=== PATIENT | male | born 1960 | race Caucasian/White ===

== ENCOUNTER 2018-01-21 09:03 | Emergency (ER) | payer BC ==
[2018-01-21] MEDS ORDERED: FENTANYL CITR 100 MCG/2 ML ONE (09:47)
[2018-01-21] MEDS ORDERED: NITROGLYCERIN 0.4 MG/TAB SL ONE (09:47)
[2018-01-21 10:07] LABS: Absolute Lymphocytes (CBC) 1.4 K/uL (0.7-4.9); Absolute Monocytes 0.6 K/uL (0.1-1.3); Absolute Neutrophil 5.7 K/uL (1.8-8.0); Eosinophils % 1.5 % (0-4.4); Hematocrit 42.4 % (39.6-49.0); Lymphocytes % 17.7 % (15.3-44.8); MCH 29.1 pg (27.0-35.0); MCV 83.9 fL (80-100); MPV 8.4 fL (7.6-11.3); Monocytes % 7.9 % (3.3-12.3); RBC Red Blood Cell Count 5.05 M/uL (4.33-5.43)
[2018-01-21 10:29] LABS: ALT/SGPT 41 U/L (12-78); AST/SGOT 24 U/L (15-37); Albumin 3.8 g/dL (3.4-5.0); Alkaline Phosphatase 120 U/L (45-117); BUN Blood Urea Nitrogen 16 mg/dL (7-18); Bicarbonate 27 mmol/L (21-32); Bilirubin Direct 0.1 mg/dL (0-0.2); Bilirubin Total 0.5 mg/dL (0.2-1.0); Glucose Level 95 mg/dL (74-106); Magnesium 2.4 mg/dL (1.8-2.4); NT PRO-BNP 25 pg/mL (<125); Potassium 4.3 mmol/L (3.5-5.1); Protein, Total 7.4 g/dL (6.4-8.2); Sodium Level 142 mmol/L (136-145); Troponin (Emerg Dept Use Only) < 0.02 ng/mL (0.0-0.045)
--- NOTE | 2018-01-21 10:39 | RAD REPORT ---
EXAM DESCRIPTION: RAD - Chest Single View - 01/21/2018 9:50 am CLINICAL HISTORY: CHEST PAIN Chest pain. COMPARISON: Chest Single View dated 02/12/2017; Chest Single View dated 06/23/2016 FINDINGS: Portable technique limits examination quality. The lungs are grossly clear. The heart is normal in size. No displaced fractures. IMPRESSION: No acute intrathoracic process suspected.
--- NOTE | 2018-01-21 10:45 | EKG ---
Test Date: 2018-01-21 Test Time: 09:24:38 Film Loader: TERRANCE MEASUREMENT RESULTS: Intervals: Rate: 62 MI: 142 QRSD: 80 QT: 398 QTc: 403 [place]: P: 52 MI: 142 QRS: 34 T: 24 INTERPRETIVE STATEMENTS: Normal sinus rhythm Normal ECG Compared to ECG 06/24/2016 08:01:39 No significant changes Electronically Signed On 01-21-18 10:45:15 SOCIAL MEDIA EXECUTIVE by Christopher Phillips
[2018-01-21 10:49] LABS: Protime INR 1.03
--- NOTE | 2018-01-21 12:35 | ER ---
Nurse's Notes [facility] Name: Anthony Bailey Age: 57 yrs Sex: Male : 1960 Arrival Date: 01/21/2018 Time: 09:05 Bed 2 Private MD: Mohan Weiner E Diagnosis: Chest pain, unspecified Presentation: 01/21 09:07 Presenting complaint: Patient states: mid-sternal chest pain that began this morning. aa5 Pt states "I saw the nurse and she gave me one nitro at 7:25am and it helped the chest pain but she said to come to the ER". 09:07 Transition of care: patient was not received from another setting of care. Onset of aa5 symptoms was January 21, 2018. Risk Assessment: Do you want to hurt yourself or someone else? Patient reports no desire to harm self or others. Initial Sepsis Screen: Does the patient meet any 2 criteria? No. Patient's initial sepsis screen is negative. Does the patient have a suspected source of infection? No. Patient's initial sepsis screen is negative. Care prior to arrival: Medication(s) given: Nitroglycerin, 0.4 mg SL. 09:07 Method Of Arrival: Wheelchair aa5 09:07 Acuity: DANIEL 2 aa5 Historical: - Allergies: 09:07 Sulfa (Sulfonamide Antibiotics); aa5 - PMHx: 09:07 Back pain; Hypertension; Myocardial infarction; aa5 09:10 NH 2017; aa5 - PSHx: 09:07 back surg -cyst removal; Knee surgery; sleep apnea surg; aa5 - Immunization history:: Flu vaccine is not up to date. - Social history:: Smoking status: Patient/guardian denies using tobacco. - Ebola Screening: : No symptoms or risks identified at this time. Screenin:10 Abuse screen: Denies threats or abuse. Nutritional screening: No deficits noted. aa5 Tuberculosis screening: No symptoms or risk factors identified. Fall Risk None identified. Assessment: 09:10 General: Appears comfortable, Behavior is calm, cooperative. Pain: Complains of pain in aa5 mid-sternal area Pain does not radiate. Pain currently is 5 out of 10 on a pain scale. Quality of pain is described as pressure, tight Pain began "this morning" Is continuous. Neuro: Level of Consciousness is awake, alert, obeys commands, Oriented to person, place, time, situation. Cardiovascular: Heart tones S1 S2 present Rhythm is regular. Respiratory: Airway is patent Respiratory effort is even, unlabored, Respiratory pattern is regular, symmetrical, Breath sounds are clear bilaterally. Denies shortness of breath. GI: Abdomen is round non-distended, Bowel sounds present X 4 quads. Patient currently denies nausea, vomiting. : No signs and/or symptoms were reported regarding the genitourinary system. EENT: No signs and/or symptoms were reported regarding the EENT system. Derm: Skin is pink, warm \\T\\ dry. Musculoskeletal: Range of motion: intact in all extremities. 09:45 Reassessment: Patient and/or family updated on plan of care and expected duration. Pain aa5 level reassessed. Patient is alert, oriented x 3, equal unlabored respirations, skin warm/dry/pink. Patient states feeling better. Patient states symptoms have improved. Pain: Pain currently is 4 out of 10 on a pain scale. 10:30 Reassessment: Patient and/or family updated on plan of care and expected duration. Pain aa5 level reassessed. Patient is alert, oriented x 3, equal unlabored respirations, skin warm/dry/pink. Pt sitting up in bed. . 10:30 Pain: Pain currently is 3 out of 10 on a pain scale. aa5 11:30 Reassessment: Patient is alert, oriented x 3, equal unlabored respirations, skin aa5 warm/dry/pink. Repeat troponin drawn by electron beam photo mask technician and sent to lab . 12:40 Reassessment: Patient is alert, oriented x 3, equal unlabored respirations, skin aa5 warm/dry/pink. Patient denies pain at this time. Patient states feeling better. Vital Signs: 09:10 BP 134 / 78; Pulse 77; Resp 14 S; Temp 98.0(O); Pulse Ox 100% on R/A; Weight 90.72 kg aa5 (R); Height 5 ft. 9 in. (175.26 cm) (R); Pain 10; 09:30 BP 136 / 76; Pulse 76; Resp 18 S; Pulse Ox 97% on R/A; aa5 09:42 BP 118 / 75; Pulse 72; Resp 16 S; Pulse Ox 98% on R/A; aa5 09:50 BP 119 / 72; Pulse 69; Resp 16 S; Pulse Ox 98% on R/A; aa5 10:00 BP 117 / 70; Pulse 77; Resp 16 S; Pulse Ox 97% on R/A; aa5 10:30 BP 128 / 61; Pulse 60; Resp 18 S; Pulse Ox 99% on R/A; aa5 11:20 BP 122 / 66; Pulse 61; Resp 18 S; Temp 97.8(TE); Pulse Ox 99% on R/A; aa5 12:00 BP 128 / 67; Pulse 65; Resp 18 S; Pulse Ox 99% on R/A; aa5 09:10 Body Mass Index 29.54 (90.72 kg, 175.26 cm) aa5 ED Course: 09:05 Patient arrived in ED. mr 09:06 Mohan Weiner MD is Private Physician. mr 09:07 Arm band placed on Patient placed in an exam room, on a stretcher. aa5 09:07 Patient has correct armband on for positive identification. Placed in gown. Bed in low aa5 position. Call light in reach. Side rails up X2. nuclear monitoring technician on. Pulse ox on. NIBP on. 09:10 Espinoza Fung PA is PHCP. jr8 09:10 Barney Ortega MD is Attending Physician. jr8 09:10 No provider procedures requiring assistance completed. Patient maintains SpO2 aa5 saturation greater than 95% on room air. 09:15 Aylin Prado, CAPO is Primary Nurse. aa5 09:19 Triage completed. aa5 09:30 Initial lab(s) drawn, by nh, sent to lab. Inserted saline lock: 20 gauge in right aa5 antecubital area, using aseptic technique. Blood collected. 09:33 EKG done, by technical services rep. reviewed by Espinoza SILVA. at1 09:48 X-ray completed. Portable x-ray completed in exam room. Patient tolerated procedure ls3 well. 12:34 Christopher Phillips MD is Referral Physician. jr8 12:40 IV discontinued, intact, bleeding controlled, No redness/swelling at site. Pressure aa5 dressing applied. Administered Medications: 09:42 Drug: Nitroglycerin 0.4 mg Route: Sublingual; aa5 10:00 Follow up: Response: No adverse reaction aa5 09:43 Drug: fentaNYL (PF) 50 mcg Route: IVP; Site: right antecubital; aa5 10:00 Follow up: Response: No adverse reaction aa5 Outcome: 12:34 Discharge ordered by . ricco 12:40 Discharged to home ambulatory, with significant other. aa5 12:40 Condition: good 12:40 Discharge instructions given to patient, Instructed on discharge instructions, follow up and referral plans. Demonstrated understanding of instructions, follow-up care. 12:44 Patient left the ED. aa5 Signatures: Aimee Watkins JohanAylin RN RN aa5 Espinoza Fung PA PA jr8 Felicia Haider, readers' advisory service librarian EKG Tat1 Marcy March ls3 Corrections: (The following items were deleted from the chart) 09:45 09:10 BP 134 / 78; Pulse 77bpm; Resp 14bpm; Spontaneous; Pulse Ox 100% RA; 90.72 kg aa5 Reported; Height 5 ft. 9 in. Reported; BMI: 29.5; Pain 5/10; aa5
--- NOTE | 2018-01-21 12:35 | EDPHYS ---
Physician Documentation [facility] Name: Anthony Bailey Age: 57 yrs Sex: Male : 1960 Arrival Date: 01/21/2018 Time: 09:05 Bed 2 Private MD: Mohan Weiner E ED Physician Barney Ortega HPI: 01/21 09:35 This 57 yrs old Male presents to ER via Wheelchair with complaints of Chest jr8 Pain. 09:35 The patient or guardian reports chest pain that is located primarily in the anterior jr8 chest wall, left. Onset: acutely, today, at 05:00. The pain does not radiate. Associated signs and symptoms: The patient has no apparent associated signs or symptoms. The chest pain is described as a heaviness, a pressure. Duration: The patient or guardian reports a single episode, that is still ongoing, but improving. Modifying factors: The symptoms are alleviated by NTG, X1. the symptoms are aggravated by nothing. Severity of pain: At its worst the pain was moderate in the emergency department the pain has improved mildly. The patient has experienced a previous episode. The patient has not recently seen a physician. History of NSTEMI in past. Did not require stent at that time per patient. Sudden onset chest pressure today that has been partially relieved by NTG that was given at work . Historical: - Allergies: 09:07 Sulfa (Sulfonamide Antibiotics); aa5 - PMHx: 09:07 Back pain; Hypertension; Myocardial infarction; aa5 09:10 [place] 2017; aa5 - PSHx: 09:07 back surg -cyst removal; Knee surgery; sleep apnea surg; aa5 - Immunization history:: Flu vaccine is not up to date. - Social history:: Smoking status: Patient/guardian denies using tobacco. - Ebola Screening: : No symptoms or risks identified at this time. ROS: 09:35 Eyes: Negative for injury, pain, redness, and discharge, ENT: Negative for injury, jr8 pain, and discharge, Neck: Negative for injury, pain, and swelling, Respiratory: Negative for shortness of breath, cough, wheezing, and pleuritic chest pain, Abdomen/GI: Negative for abdominal pain, nausea, vomiting, diarrhea, and constipation, Back: Negative for injury and pain, MS/Extremity: Negative for injury and deformity, Skin: Negative for injury, rash, and discoloration, Neuro: Negative for headache, weakness, numbness, tingling, and seizure. 09:35 Cardiovascular: Positive for chest pain, Negative for edema, orthopnea, palpitations, paroxysmal nocturnal dyspnea. Exam: 09:35 Eyes: Pupils equal round and reactive to light, extra-ocular motions intact. Lids and jr8 lashes normal. Conjunctiva and sclera are non-icteric and not injected. Cornea within normal limits. Periorbital areas with no swelling, redness, or edema. ENT: Nares patent. No nasal discharge, no septal abnormalities noted. Tympanic membranes are normal and external auditory canals are clear. Oropharynx with no redness, swelling, or masses, exudates, or evidence of obstruction, uvula midline. Mucous membranes moist. Neck: Trachea midline, no thyromegaly or masses palpated, and no cervical lymphadenopathy. Supple, full range of motion without nuchal rigidity, or vertebral point tenderness. No Meningismus. Cardiovascular: Regular rate and rhythm with a normal S1 and S2. No gallops, murmurs, or rubs. Normal PMI, no JVD. No pulse deficits. Respiratory: Lungs have equal breath sounds bilaterally, clear to auscultation and percussion. No rales, rhonchi or wheezes noted. No increased work of breathing, no retractions or nasal flaring. Abdomen/GI: Soft, non-tender, with normal bowel sounds. No distension or tympany. No guarding or rebound. No evidence of tenderness throughout. Back: No spinal tenderness. No costovertebral tenderness. Full range of motion. Skin: Warm, dry with normal turgor. Normal color with no rashes, no lesions, and no evidence of cellulitis. MS/ Extremity: Pulses equal, no cyanosis. Neurovascular intact. Full, normal range of motion. Neuro: Awake and alert, GCS 15, oriented to person, place, time, and situation. Cranial nerves II-XII grossly intact. Motor strength 5/5 in all extremities. Sensory grossly intact. Cerebellar exam normal. Normal gait. Vital Signs: 09:10 BP 134 / 78; Pulse 77; Resp 14 S; Temp 98.0(O); Pulse Ox 100% on R/A; Weight 90.72 kg aa5 (R); Height 5 ft. 9 in. (175.26 cm) (R); Pain 5/10; 09:30 BP 136 / 76; Pulse 76; Resp 18 S; Pulse Ox 97% on R/A; aa5 09:42 BP 118 / 75; Pulse 72; Resp 16 S; Pulse Ox 98% on R/A; aa5 09:50 BP 119 / 72; Pulse 69; Resp 16 S; Pulse Ox 98% on R/A; aa5 10:00 BP 117 / 70; Pulse 77; Resp 16 S; Pulse Ox 97% on R/A; aa5 10:30 BP 128 / 61; Pulse 60; Resp 18 S; Pulse Ox 99% on R/A; aa5 11:20 BP 122 / 66; Pulse 61; Resp 18 S; Temp 97.8(TE); Pulse Ox 99% on R/A; aa5 12:00 BP 128 / 67; Pulse 65; Resp 18 S; Pulse Ox 99% on R/A; aa5 09:10 Body Mass Index 29.54 (90.72 kg, 175.26 cm) aa5 MDM: 09:10 Patient medically screened. jr8 12:33 HEART Score: History: Moderately Suspicious (1), ECG: Normal (0), Age: > 45 and < 65 jr8 years (1), Risk Factors: 1 or 2 risk factors (1), [Hypertension] Troponin: < or = 1 x Normal Limit (0). The patient was not given aspirin in the Emergency Department. Patient reports taking aspirin within the past 24 hours. Data reviewed: vital signs, nurses notes, lab test result(s), EKG, radiologic studies, plain films, and as a result, I will discharge patient. Counseling: I had a detailed discussion with the patient and/or guardian regarding: the historical points, exam findings, and any diagnostic results supporting the discharge/admit diagnosis, lab results, radiology results, the need for outpatient follow up, a felt hat mellowing machine operator, to return to the emergency department if symptoms worsen or persist or if there are any questions or concerns that arise at home. ED course: Patient currently without pain. X 2 troponins negative. Will call Dr. Phillips who is his felt hat mellowing machine operator today for follow up. Does not want to be admitted at this time. 01/21 09:31 Order name: Basic Metabolic Panel [facility] [place] 01/21 09:31 Order name: CBC with Diff 8 01/21 09:31 Order name: LFT's [facility] [place] 01/21 09:31 Order name: Magnesium [facility] [place] 01/21 09:31 Order name: NT PRO-BNP [facility] [place] 01/21 09:31 Order name: PT-INR [facility] [place] 01/21 09:31 Order name: Troponin (emerg Dept Use Only) [facility] [place] 01/21 10:20 Order name: CBC with Automated Diff; Complete Time: 10:54 EDMS 01/21 10:29 Order name: Basic Metabolic Panel; Complete Time: 10:54 EDMS 01/21 10:29 Order name: Liver (Hepatic) Function; Complete Time: 10:54 EDMS 01/21 10:29 Order name: Troponin (Emerg Dept Use Only); Complete Time: 10:54 EDMS 01/21 10:29 Order name: NT PRO-BNP; Complete Time: 10:54 EDMS 01/21 10:29 Order name: Magnesium; Complete Time: 10:54 EDMS 01/21 10:58 Order name: Protime (+INR); Complete Time: 11:05 EDMS 01/21 09:31 Order name: XRAY Chest (1 view) [facility] [place] 01/21 09:31 Order name: EKG; Complete Time: 09:32 [facility] [place] 01/21 09:31 Order name: Cardiac monitoring; Complete Time: 09:37 [facility] [place] 01/21 09:31 Order name: EKG - Nurse/Tech; Complete Time: 09:37 [facility] [place] 01/21 09:31 Order name: IV Saline Lock; Complete Time: 09:37 [facility] [place] 01/21 09:31 Order name: Labs collected and sent; Complete Time: 09:37 [facility] [place] 01/21 09:31 Order name: O2 Per Protocol; Complete Time: 09:37 [facility] [place] 01/21 09:31 Order name: O2 Sat Monitoring; Complete Time: 09:37 [facility] [place] 01/21 10:40 Order name: RAD; Complete Time: 10:54 EDMS 01/21 11:05 Order name: Troponin (emerg Dept Use Only); Complete Time: 12:32 jr8 Administered Medications: 09:42 Drug: Nitroglycerin 0.4 mg Route: Sublingual; aa5 10:00 Follow up: Response: No adverse reaction aa5 09:43 Drug: fentaNYL (PF) 50 mcg Route: IVP; Site: right antecubital; aa5 10:00 Follow up: Response: No adverse reaction aa5 Disposition: 18:05 Co-signature as Attending Physician, Barney Ortega MD I agree with the assessment and mohit plan of care. Disposition: 01/21/18 12:34 Discharged to Home. Impression: Chest pain, unspecified. - Condition is Stable. - Discharge Instructions: Nonspecific Chest Pain, Aspirin and Your Heart. - Medication Reconciliation Form, Thank You Letter, Antibiotic Education, Prescription Opioid Use form. - Follow up: Christopher Phillips MD; When: 1 - 2 days; Reason: Recheck today's complaints, Continuance of care, Re-evaluation by your physician. - Problem is new. - Symptoms are resolved. Signatures: Dispatcher [employer] EDMS Barney Ortega MD MD cha Calderon, Audri RN RN aa5 Espinoza Fung PA PA jr8 Corrections: (The following items were deleted from the chart) 11:01 09:35 Onset: acutely, today, jr8 jr8 12:44 12:34 01/21/2018 12:34 Discharged to Home. Impression: Chest pain, unspecified. aa5 Condition is Stable. Forms are Medication Reconciliation Form, Thank You Letter, Antibiotic Education, Prescription Opioid Use. Follow up: Christopher Phillips; When: 1 - 2 days; Reason: Recheck today's complaints, Continuance of care, Re-evaluation by your physician. Problem is new. Symptoms are resolved. jr8
[2018-01-21 12:54] VITALS: TEMP 98
[2018-01-21 13:01] VITALS: BP 128/61; O2SAT 99
== END 2018-01-21 12:44 | disposition home or self-care (01) ==
LOC: ER 09:03
DX: R07.9 Chest pain, unspecified (principal); I10 Essential (primary) hypertension; I25.2 Old myocardial infarction; Z88.2 Allergy status to sulfonamides
CPT/HCPCS: 36415; 71045; 80048; 80076; 83735; 83880; 84484; 85025; 85610; 93005; 96374; 99285; J3010

== ENCOUNTER 2018-10-17 11:13 | Emergency (ER) | payer BC ==
--- OUTSIDE RECORDS SUMMARY | 2018-10-17 11:24 | XMS REPORT ---
:1960 [facility] Address [address] [place] [address] Care Team Providers Name Role Phone Unavailable Unavailable Unavailable Payers Payer Name Policy Type Policy Number Effective Date Expiration Date Problems This patient has no known problems. Allergies, Adverse Reactions, Alerts Allergy Allergy Status Severity Reaction(s) Onset Inactive Treating Comments Name Type Date Date Clinician Sulfa DA Active [place] 2018-08 (Sulfonami -24 de 00:00:0 Antibiotic 0 s) Sulfa DA Active [place] 2018-07 (Sulfonami -26 de 00:00:0 Antibiotic 0 s) Sulfa DA Active [place] 2016-04 (Sulfonami -15 de 00:00:0 Antibiotic 0 s) Medications This patient has no known medications. Results Test Description Test Time Test Comments Text Results Atomic Results Result Comments BASIC METABOLIC PANEL 2018-08-14 12:05:00 Test Item Value Reference Range Comments SODIUM (test code=NA) 138 mmol/L 136-145 POTASSIUM (test code=K) 4.6 mmol/L 3.5-5.1 CHLORIDE (test code=CL) 102.0 mmol/L 98-107 CARBON DIOXIDE (test code=CO2) 27.9 mmol/L 21-32 GLUCOSE (test code=GLU) 94 mg/dL 70-110 BLOOD UREA NITROGEN (test 17 mg/dL 7-18 code=BUN) GLOMERULAR FILTRATION RATE (test 71.0 >60 Unit of measure: mL/min/1.73 code=GFR) [id number] Range:Healthy Adults >90 mL/min/1.73 m2 For Chronic Kidney Disease: Stage II Mild Decrease in GFR 60-90 Stage III Moderate Decrease in GFR 30-59 Stage IV Severe Decrease in GFR 15-29 Stage V Kidney Failure <15 CREATININE (test code=CREAT) 1.07 mg/dL 0.55-1.30 CALCIUM (test code=CA) 9.1 mg/dL 8.2-10.1 HGB [id number] 11:40:00 Test Item Value Reference Range Comments HEMOGLOBIN (test code=HGB) 14.9 g/dL 12-16 HEMATOCRIT (test code=HCT) 42.7 % 37-47 - MRI UP JNT W/O CONT [id number] 16:27:00 Patient Name: BUDDY PÉREZ Unit No: [id number] EXAMS: CPT CODE: [id number] MRI UP JNT W/[place] [id number] MRI OF THE LEFT SHOULDER DIAGNOSIS: 1. Partial- thickness tearing of the supraspinatus tendon greatest along the undersurface anteriorly where it involves greater than 50% of the thickness of the tendon. There is no evidence for tendon retraction or muscular atrophy. 2. Low-grade partial thickness intrasubstance tearing of the infraspinatus tendon with tendinosis. No tendon retraction or muscular atrophy is seen. 3. SLAP tear of the labrum with biceps tendinosis but no evidence for subluxation. The proximal biceps tendon is thickened and there may be entrapment. The SLAP tear contiguously involves the posterior labrum with small posterior labral cyst. There is also subchondral cyst formation in the posterior glenoid without a focal cartilage defect. COMMENT: COMPARISON: No prior exams available. Scans were performed in the paracoronal, parasagittal and axial planes utilizing T1 , spin density with fat saturation and T2-weighting with and without fat saturation. The subscapularis tendon is within normal limitsin appearance. The remainder the rotator cuff is abnormal as described. The acromion is horizontal with AC joint degenerative change. The labrum is torn. There is a physiologic amount of joint fluid and a minimal amount of bursal fluid. Electronically Signed by Joey Ferrera MD on at 1627 Reported and signed by: Joey Ferrera MD CC: Robel Branham MD Technologist: Eleni Enciso(R) TranscribedD/ (1623) [facility] NAME: BUDDY PÉREZ [id number] [facility] [facility] PHYS: Chula Santos : 1960 AGE: 57 SEX: M [place] [id number] LOC: Y.MRI PHONE #: EXAM DATE: 07/11/2018 STATUS: REG CLI FAX #: RAD #: D/C DT PAGE 1 Signed Report Patient Name: BUDDY PÉREZ Unit No: [id number] EXAMS: CPT CODE: [id number] [place] JNT W/[place] [id number] < Continued> Orig Print D/T: S: 07/11/2018 ([id number]) [facility] NAME: BUDDY PÉREZ [address] [facility] [facility] PHYS: Robel Santos : 1960 AGE: 57 SEX: M [place] [id number] LOC: Y.MRI PHONE #: [phone] EXAM DATE: STATUS: REG CLI FAX #: [phone] RAD #: D/C DT PAGE 2 Signed Report
--- NOTE | 2018-10-17 11:49 | RAD REPORT ---
EXAM DESCRIPTION: RAD - Chest Single View - 10/17/2018 11:43 am CLINICAL HISTORY: Chest pain, chest pressure COMPARISON: January 2018 TECHNIQUE: AP portable chest image was obtained 1134 hours . FINDINGS: Lungs are clear. Heart and vasculature are normal. No measurable pleural effusion and no p neumothorax. No acute bony abnormality seen. No acute aortic findings suspected. IMPRESSION: No acute cardiopulmonary process.
[2018-10-17 11:54] LABS: Absolute Lymphocytes (CBC) 1.3 K/uL (0.7-4.9); Basophils % 0.8 % (0-1.3); Hematocrit 44.2 % (39.6-49.0); Lymphocytes % 14.1 % (15.3-44.8); RBC Red Blood Cell Count 5.19 M/uL (4.33-5.43)
[2018-10-17 12:06] LABS: Protime INR 0.97
[2018-10-17 12:16] LABS: ALT/SGPT 31 U/L (12-78); AST/SGOT 19 U/L (15-37); Alkaline Phosphatase 112 U/L (45-117); BUN Blood Urea Nitrogen 16 mg/dL (7-18); Bicarbonate 30 mmol/L (21-32); Bilirubin Direct 0.2 mg/dL (0-0.2); Bilirubin Total 0.6 mg/dL (0.2-1.0); Glucose Level 127 mg/dL (74-106); Magnesium 2.3 mg/dL (1.8-2.4); NT PRO-BNP 35 pg/mL (<125); Protein, Total 7.7 g/dL (6.4-8.2); Sodium Level 144 mmol/L (136-145); Troponin (Emerg Dept Use Only) < 0.02 ng/mL (0.0-0.045)
[2018-10-17] MEDS ORDERED: ASPIRIN 81 MG CHEWABLE TABLET ONE (13:29)
--- NOTE | 2018-10-17 14:56 | EKG ---
Test Date: 2018-10-17 Test Time: 11:42:14 Station Agent: TERRANCE MEASUREMENT RESULTS: Intervals: Rate: 67 DE: 140 QRSD: 82 QT: 382 QTc: 403 [place]: P: 42 DE: 140 QRS: 45 T: 27 INTERPRETIVE STATEMENTS: Normal sinus rhythm Normal ECG Compared to ECG 01/21/2018 09:24:38 No significant changes Electronically Signed On 10-17-18 14:56:01 CDT by Michel Blake
--- NOTE | 2018-10-17 18:52 | ER ---
Nurse's Notes [facility] Name: Anthony Bailey Age: 58 yrs Sex: Male : 1960 Arrival Date: 10/17/2018 Time: 11:14 Bed 14 Private MD: Diagnosis: Chest pain, unspecified Presentation: 10/17 11:21 Presenting complaint: Patient states: "I've been having uncomfortable feelings, chest aj1 pain for the past 7 to 8 hours. At some point in the middle of the night I went to move and I got this really bad pain in the back left side of my body and after that pain I felt like my blood pressure increased. I've had a heart attack before. I had some nitroglycerine pills, I took one, but it didn't calm me down, and I just have a really bad feeling. I feel like I'm going to throw up" Reports left sided chest pain. Transition of care: patient was not received from another setting of care. Onset of symptoms was October 17, 2018. Risk Assessment: Do you want to hurt yourself or someone else? Patient reports no desire to harm self or others. Initial Sepsis Screen: Does the patient meet any 2 criteria? No. Patient's initial sepsis screen is negative. Does the patient have a suspected source of infection? No. Patient's initial sepsis screen is negative. Care prior to arrival: None. 11:21 Method Of Arrival: Ambulatory aj1 11:21 Acuity: DANIEL 2 aj1 Triage Assessment: 11:24 General: Appears in no apparent distress. uncomfortable, Behavior is calm, cooperative, aj1 appropriate for age. Pain: Complains of pain in anterior aspect of left upper chest and left breast Pain currently is 7 out of 10 on a pain scale. Neuro: Level of Consciousness is awake, alert, obeys commands. Cardiovascular: Reports chest pain. Respiratory: Airway is patent Respiratory effort is even, unlabored, Respiratory pattern is regular, symmetrical. Historical: - Allergies: 11:24 Sulfa (Sulfonamide Antibiotics); aj1 - PMHx: 11:24 Back pain; Hypertension; [place] 2017; Myocardial infarction; aj1 - Immunization history:: Adult Immunizations up to date. - Ebola Screening: : Patient denies travel to an Ebola-affected area in the 21 days before illness onset. - Social history:: Smoking status: Patient/guardian denies using. Screenin:33 Abuse screen: Denies threats or abuse. Denies injuries from another. Nutritional ss screening: No deficits noted. Tuberculosis screening: Never had TB. Fall Risk No fall in past 12 months (0 pts). No secondary diagnosis (0 pts). IV access (20 points). Ambulatory Aid- None/Bed Rest/Nurse Assist (0 pts). Gait- Normal/Bed Rest/Wheelchair (0 pts) Mental Status- Oriented to own ability (0 pts). Assessment: 11:34 General: Appears comfortable, Behavior is calm, cooperative, Denies fever, feeling ill, ss fatigue, chills. Pain: Complains of pain in chest Pain does not radiate. Pain currently is 6 out of 10 on a pain scale. Quality of pain is described as pressure, Pain began 8 hours ago Is continuous. Neuro: Level of Consciousness is awake, alert, obeys commands, Oriented to person, place, time, situation, Speech is normal, Pupils are PERRLA. Cardiovascular: Pulses are palpable in right radial artery, right posterior tibial artery, left radial artery and left posterior tibial artery. Cardiovascular: Respiratory: Airway is patent Respiratory effort is even, unlabored, Respiratory pattern is regular, symmetrical. Respiratory: Denies cough, shortness of breath. GI: Abdomen is non-distended, Reports nausea, Patient currently denies abdominal pain, diarrhea, vomiting. : No signs and/or symptoms were reported regarding the genitourinary system. EENT: Nares with drainage noted Oral mucosa is moist. Derm: Skin is pink, warm \\T\\ dry. normal. Musculoskeletal: Circulation, motion, and sensation intact. Range of motion: intact in all extremities, Swelling absent. 11:38 General: I agree with the above assessment. Bed is in low, locked position. Call light rb1 within reach.. 12:35 Reassessment: Patient appears in no apparent distress at this time. No changes from rb1 previously documented assessment. 13:35 Reassessment: Patient appears in no apparent distress at this time. Patient and/or rb1 family updated on plan of care and expected duration. Pain level reassessed. Patient is alert, oriented x 3, equal unlabored respirations, skin warm/dry/pink. Pain 4/10. 14:20 Reassessment: Patient appears in no apparent distress at this time. No changes from rb1 previously documented assessment. 15:20 Reassessment: Patient appears in no apparent distress at this time. Patient and/or rb1 family updated on plan of care and expected duration. Pain level reassessed. Patient is alert, oriented x 3, equal unlabored respirations, skin warm/dry/pink. 15:30 Reassessment: Discharge pending due to the provider needing to speak with the pt. rb1 16:14 Reassessment: Patient appears in no apparent distress at this time. No changes from rb1 previously documented assessment. Vital Signs: 11:23 BP 138 / 83; Pulse 86; Resp 18; Temp 97.8; Pulse Ox 98% on R/A; Weight 92.08 kg (R); aj1 Height 5 ft. 10 in. (177.80 cm) (R); Pain 6/10; 12:20 BP 129 / 69; Pulse 67; Resp 19; Temp 97.9(O); Pulse Ox 97% on R/A; Pain 6/10; rb1 13:20 BP 116 / 98; Pulse 69; Resp 16; Temp 97.8(O); Pulse Ox 98% ; Pain 4/10; rb1 14:20 BP 130 / 76; Pulse 61; Resp 19; Temp 97.9(O); Pulse Ox 97% on R/A; Pain 4/10; rb1 15:20 BP 131 / 73; Pulse 60; Resp 12; Pulse Ox 97% on R/A; rb1 16:14 BP 131 / 81; Pulse 63; Resp 13; Temp 98.3(O); Pulse Ox 98% on R/A; Pain 3/10; rb1 11:23 Body Mass Index 29.13 (92.08 kg, 177.80 cm) aj1 ED Course: 11:14 Patient arrived in ED. as 11:23 Triage completed. aj1 11:24 Arm band placed on Patient placed in an exam room. aj1 11:25 Romain Mckenzie MD is Attending Physician. kdr 11:33 Patient has correct armband on for positive identification. Bed in low position. Call ss light in reach. Side rails up X 1. coal getter on. Pulse ox on. NIBP on. 11:33 Inserted saline lock: 20 gauge in right Blood collected. Patient maintains SpO2 ss saturation greater than 95% on room air. 11:55 XRAY Chest (1 view) In Process Unspecified. EDMS 12:48 Serina Barahona, RN is Primary Nurse. rb1 14:07 EKG done, by marine technician. reviewed by Romain Mckenzie MD. sm3 16:16 No provider procedures requiring assistance completed. IV discontinued, intact, rb1 bleeding controlled, No redness/swelling at site. Pressure dressing applied. Administered Medications: 13:35 Drug: Aspirin Chewable Tablet 324 mg Route: PO; rb1 14:00 Follow up: Response: No adverse reaction rb1 Outcome: 15:18 Discharge ordered by . kdr 16:16 Discharged to home ambulatory, with family. rb1 16:16 Condition: stable 16:16 Discharge instructions given to patient, Instructed on discharge instructions, follow up and referral plans. Demonstrated understanding of instructions, follow-up care, Prescriptions given X none 16:18 Patient left the ED. rb1 Signatures: Dispatcher [employer] EDMS Jennifer Eric RN RN aj1 Romain Mckenzie MD MD [facility] Cindy Lawson Shelby, RN RN Serina Barahona, RN RN rb1 Mony Villeda sm3 Corrections: (The following items were deleted from the chart) 13:43 13:42 Social history: Smoking status: rb1 rb1
--- NOTE | 2018-10-17 18:53 | EDPHYS ---
Physician Documentation [facility] Name: Anthony Bailey Age: 58 yrs Sex: Male : 1960 Arrival Date: 10/17/2018 Time: 11:14 Bed 14 Private MD: ED Physician Romain Mckenzie HPI: 10/17 15:19 This 58 yrs old Male presents to ER via Ambulatory with complaints of Chest kdr Pain. 15:19 The patient or guardian reports chest pain that is located primarily in the anterior kdr chest wall, left. Onset: suddenly, this morning, yesterday. The pain radiates to the left shoulder, The patient had recently rotator cuff surgery on the left and is unable to unnecessarily differentiate the post-op pain. Associated signs and symptoms: Pertinent positives: nausea, Pertinent negatives: diaphoresis, shortness of breath. The chest pain is described as aching, dull. Duration: The patient or guardian reports multiple episodes, that are intermittent, that wax and wane, with no pattern. Severity of pain: At its worst the pain was moderate in the emergency department the pain has improved markedly. Not entirely. Historical: - Allergies: 11:24 Sulfa (Sulfonamide Antibiotics); aj1 - PMHx: 11:24 Back pain; Hypertension; [place] 2017; Myocardial infarction; aj1 - Immunization history:: Adult Immunizations up to date. - Ebola Screening: : Patient denies travel to an Ebola-affected area in the 21 days before illness onset. - Social history:: Smoking status: Patient/guardian denies using. ROS: 15:19 Constitutional: Negative for fever, chills, and weight loss, Eyes: Negative for injury, kdr pain, redness, and discharge, Neck: Negative for injury, pain, and swelling, Respiratory: Negative for shortness of breath, cough, wheezing, and pleuritic chest pain, Abdomen/GI: Negative for abdominal pain, nausea, vomiting, diarrhea, and constipation, Back: Negative for injury and pain, MS/Extremity: Negative for injury and deformity, Skin: Negative for injury, rash, and discoloration, Neuro: Negative for headache, weakness, numbness, tingling, and seizure activity. Psych: Negative for depression, anxiety, suicide ideation, homicidal ideation, and hallucinations, Allergy/Immunology: Negative for hives, rash, and allergies, Endocrine: Negative for neck swelling, polydipsia, polyuria, polyphagia, and marked weight changes, Hematologic/Lymphatic: Negative for swollen nodes, abnormal bleeding, and unusual bruising. 15:19 Cardiovascular: Positive for chest pain, Negative for edema, orthopnea, palpitations, paroxysmal nocturnal dyspnea, acute changes. Exam: 15:19 Constitutional: This is a well developed, well nourished patient who is awake, alert, kdr and in no acute distress. Head/Face: Normocephalic, atraumatic. Eyes: Pupils equal round and reactive to light, extra-ocular motions intact. Lids and lashes normal. Conjunctiva and sclera are non-icteric and not injected. Cornea within normal limits. Periorbital areas with no swelling, redness, or edema. Neck: Trachea midline, no thyromegaly or masses palpated, and no cervical lymphadenopathy. Supple, full range of motion without nuchal rigidity, or vertebral point tenderness. No Meningismus. Chest/axilla: Normal chest wall appearance and motion. Nontender with no deformity. No lesions are appreciated. Cardiovascular: Regular rate and rhythm with a normal S1 and S2. No gallops, murmurs, or rubs. Normal PMI, no JVD. No pulse deficits. Respiratory: Lungs have equal breath sounds bilaterally, clear to auscultation and percussion. No rales, rhonchi or wheezes noted. No increased work of breathing, no retractions or nasal flaring. Abdomen/GI: Soft, non-tender, with normal bowel sounds. No distension or tympany. No guarding or rebound. No evidence of tenderness throughout. Back: No spinal tenderness. No costovertebral tenderness. Full range of motion. Skin: Warm, dry with normal turgor. Normal color with no rashes, no lesions, and no evidence of cellulitis. MS/ Extremity: Pulses equal, no cyanosis. Neurovascular intact. Full, normal range of motion. Neuro: Awake and alert, GCS 15, oriented to person, place, time, and situation. Cranial nerves II-XII grossly intact. Motor strength 5/5 in all extremities. Sensory grossly intact. Cerebellar exam normal. Normal gait. Psych: Awake, alert, with orientation to person, place and time. Behavior, mood, and affect are within normal limits. Vital Signs: 11:23 BP 138 / 83; Pulse 86; Resp 18; Temp 97.8; Pulse Ox 98% on R/A; Weight 92.08 kg (R); aj1 Height 5 ft. 10 in. (177.80 cm) (R); Pain 6/10; 12:20 BP 129 / 69; Pulse 67; Resp 19; Temp 97.9(O); Pulse Ox 97% on R/A; Pain 6/10; rb1 13:20 BP 116 / 98; Pulse 69; Resp 16; Temp 97.8(O); Pulse Ox 98% ; Pain 4/10; rb1 14:20 BP 130 / 76; Pulse 61; Resp 19; Temp 97.9(O); Pulse Ox 97% on R/A; Pain 4/10; rb1 15:20 BP 131 / 73; Pulse 60; Resp 12; Pulse Ox 97% on R/A; rb1 16:14 BP 131 / 81; Pulse 63; Resp 13; Temp 98.3(O); Pulse Ox 98% on R/A; Pain 3/10; rb1 11:23 Body Mass Index 29.13 (92.08 kg, 177.80 cm) aj1 MDM: 15:18 Patient medically screened. kdr 15:19 HEART Score: History: Moderately Suspicious (1), ECG: Normal (0), Age: > 45 and < 65 kdr years (1), Risk Factors: 1 or 2 risk factors (1), Troponin: < or = 1 x Normal Limit (0), Total Score = 3. Data reviewed: vital signs, nurses notes, lab test result(s), EKG, radiologic studies. Counseling: I had a detailed discussion with the patient and/or guardian regarding: the historical points, exam findings, and any diagnostic results supporting the discharge/admit diagnosis, lab results, radiology results, the need for outpatient follow up. 10/17 11:26 Order name: Basic Metabolic Panel kdr 10/17 11:26 Order name: CBC with Diff kdr 10/17 11:26 Order name: LFT's kdr 10/17 11:26 Order name: Magnesium kdr 10/17 11:26 Order name: NT PRO-BNP kdr 10/17 11:26 Order name: PT-INR kdr 10/17 11:26 Order name: Troponin (emerg Dept Use Only) kdr 10/17 11:26 Order name: XRAY Chest (1 view) [facility] 10/17 11:26 Order name: EKG; Complete Time: 11:27 [facility] 10/17 11:26 Order name: Cardiac monitoring; Complete Time: 11:36 [facility] 10/17 11:26 Order name: EKG - Nurse/Tech; Complete Time: 11:36 [facility] 10/17 11:26 Order name: IV Saline Lock; Complete Time: 11:36 [facility] 10/17 12:58 Order name: Troponin (emerg Dept Use Only): Draw two hours after the initial draw [facility] 10/17 11:26 Order name: Labs collected and sent; Complete Time: 11:36 [facility] 10/17 11:26 Order name: O2 Per Protocol; Complete Time: 11:36 [facility] 10/17 11:26 Order name: O2 Sat Monitoring; Complete Time: :36 [facility] 10/17 12:58 Order name: EKG - Nurse/Tech: Perfomr; Complete Time: 13:48 kdr Administered Medications: 13:35 Drug: Aspirin Chewable Tablet 324 mg Route: PO; rb1 14:00 Follow up: Response: No adverse reaction rb1 Disposition: 10/17/18 15:18 Discharged to Home. Impression: Chest pain, unspecified. - Condition is Stable. - Discharge Instructions: Nonspecific Chest Pain, [id number]. - Medication Reconciliation Form, Thank You Letter form. - Follow up: Private Physician; When: 2 - 3 days; Reason: If symptoms return, Further diagnostic work-up, Recheck today's complaints, Continuance of care, Re-evaluation by your physician. - Problem is new. - Symptoms have improved. Signatures: Dispatcher [employer] Jennifer Heredia RN RN aj1 Romain Mckenzie MD MD [facility] Carol Weiner RN RN ss Barber, Rebecca RN RN rb1 Corrections: (The following items were deleted from the chart) 13:43 13:42 Social history: Smoking status: rb1 rb1 16:18 15:18 10/17/2018 15:18 Discharged to Home. Impression: Chest pain, unspecified. rb1 Condition is Stable. Forms are Medication Reconciliation Form, Thank You Letter, Antibiotic Education, Prescription Opioid Use. Follow up: Private Physician; When: 2 - 3 days; Reason: If symptoms return, Further diagnostic work-up, Recheck today's complaints, Continuance of care, Re-evaluation by your physician. Problem is new. Symptoms have improved. kdr
[2018-10-17 20:15] VITALS: BP 131/81; TEMP 98.3; O2SAT 98
--- NOTE | 2018-10-20 08:15 | EKG ---
Test Date: 2018-10-17 Test Time: 13:58:37 Policy Change Clerk: TERRANCE MEASUREMENT RESULTS: Intervals: Rate: 62 [place]: 128 QRSD: 86 QT: 402 QTc: 408 [place]: P: 38 [place]: 128 QRS: 46 T: 27 INTERPRETIVE STATEMENTS: Normal sinus rhythm Normal ECG Compared to ECG 10/17/2018 11:42:14 No significant changes Electronically Signed On 10-20-18 08:08:21 CDT by Michel Blake
== END 2018-10-17 16:18 | disposition home or self-care (01) ==
LOC: ER 11:13
DX: R07.9 Chest pain, unspecified (principal); I25.2 Old myocardial infarction; Z88.2 Allergy status to sulfonamides
CPT/HCPCS: 36415; 71045; 80048; 80076; 83735; 83880; 84484; 85025; 85610; 93005; 99285

== ENCOUNTER 2018-12-20 10:23 | Emergency (ER) | payer BC ==
[2018-12-20 10:54] LABS: Absolute Lymphocytes (CBC) 1.5 K/uL (0.7-4.9); Basophils % 1.3 % (0-1.3); Hematocrit 42.9 % (39.6-49.0); Lymphocytes % 21.3 % (15.3-44.8); MPV 8.3 fL (7.6-11.3); RBC Red Blood Cell Count 5.01 M/uL (4.33-5.43)
[2018-12-20 10:56] LABS: Protime INR 0.98
--- NOTE | 2018-12-20 11:00 | EKG ---
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
[2018-12-20 11:06] LABS: ALT/SGPT 31 U/L (12-78); AST/SGOT 23 U/L (15-37); Albumin 3.9 g/dL (3.4-5.0); Alkaline Phosphatase 112 U/L (45-117); BUN Blood Urea Nitrogen 15 mg/dL (7-18); Bicarbonate 27 mmol/L (21-32); Bilirubin Direct 0.2 mg/dL (0-0.2); Bilirubin Total 0.5 mg/dL (0.2-1.0); Glucose Level 113 mg/dL (74-106); Magnesium 2.2 mg/dL (1.8-2.4); NT PRO-BNP 18 pg/mL (<125); Potassium 3.9 mmol/L (3.5-5.1); Protein, Total 7.2 g/dL (6.4-8.2); Sodium Level 141 mmol/L (136-145); Troponin (Emerg Dept Use Only) < 0.02 ng/mL (0.0-0.045)
--- NOTE | 2018-12-20 12:00 | RAD REPORT ---
EXAM DESCRIPTION: RAD - Chest Single View - 12/20/2018 11:47 am CLINICAL HISTORY: CHEST PAIN Chest pain. COMPARISON: Chest Single View dated 10/17/2018; Chest Single View dated 01/21/2018; Chest Single View dated 02/12/2017; Chest Single View dated 06/23/2016 FINDINGS: Portable technique limits examination quality. The lungs are grossly clear. The heart is normal in size. No displaced fractures. IMPRESSION: No acute intrathoracic process suspected.
--- NOTE | 2018-12-20 12:02 | ER ---
Nurse's Notes [facility] Name: Anthony Bailey Age: 58 yrs Sex: Male : 1960 Arrival Date: 12/20/2018 Time: 10:24 Bed 17 Private MD: Diagnosis: Chest pain, unspecified Presentation: 12/20 10:29 Presenting complaint: Sharp left sided chest pain that started while reaching arms hb overhead getting dressed this morning. Pain was unchanged by Nitro x 1. Transition of care: patient was not received from another setting of care. Onset of symptoms was December 20, 2018. Risk Assessment: Do you want to hurt yourself or someone else? Patient reports no desire to harm self or others. Initial Sepsis Screen: Does the patient meet any 2 criteria? No. Patient's initial sepsis screen is negative. Does the patient have a suspected source of infection? No. Patient's initial sepsis screen is negative. Care prior to arrival: Medication(s) given: Nitroglycerin, 0.4 mg SL x 1. 10:29 Method Of Arrival: Ambulatory hb 10:29 Acuity: DANIEL 3 hb Triage Assessment: 10:29 General: Appears in no apparent distress. comfortable, Behavior is cooperative, bp appropriate for age, anxious. Pain: Complains of pain in chest. EENT: No deficits noted. Neuro: No deficits noted. Cardiovascular: Rhythm is sinus rhythm Chest pain quality is sharp, is located in left began 1 hour prior to arrival. Respiratory: No deficits noted. GI: No signs and/or symptoms were reported involving the gastrointestinal system. : No signs and/or symptoms were reported regarding the genitourinary system. Derm: No deficits noted. Musculoskeletal: No deficits noted. Historical: - Allergies: 10:29 Sulfa (Sulfonamide Antibiotics); bp - PMHx: 10:29 Back pain; Hypertension; [place] 2017; Myocardial infarction; bp - Immunization history:: Adult Immunizations up to date. - Social history:: Smoking status: unknown. - Ebola Screening: : No symptoms or risks identified at this time. Screenin:30 Abuse screen: Denies threats or abuse. Denies injuries from another. Nutritional bp screening: No deficits noted. Tuberculosis screening: No symptoms or risk factors identified. Fall Risk None identified. Assessment: 10:31 General: SEE TRIAGE NOTE. bp 10:31 Pain: Pain does not radiate. Pain began 1 hour ago. bp 12:30 Reassessment: ADMIT IN PROCESS. bp 13:30 Reassessment: ADMIT COMPLETED, BED ASSIGNED. bp 14:30 Reassessment: PT DECLINING ADMIT, C/S PENDING. bp 15:31 Reassessment: PT D/C HOME AMBULATORY, DX WITH NONSPECIFIC CHEST PAIN. bp Vital Signs: 10:29 BP 174 / 82; Pulse 93; Resp 16; Temp 97.2; Pulse Ox 99% on R/A; Weight 77.11 kg; Height hb 5 ft. 8 in. (172.72 cm); Pain 6/10; 11:25 BP 140 / 84; Pulse 67; Resp 18; Temp 97.5(TE); Pulse Ox 98% on R/A; mh5 12:00 BP 151 / 81; Pulse 71; Resp 16; Pulse Ox 100% ; bp 13:00 BP 174 / 101; Pulse 77; Resp 16; Pulse Ox 99% ; bp 14:00 BP 149 / 85; Pulse 71; Resp 17; Pulse Ox 99% ; bp 15:00 BP 157 / 83; Pulse 75; Resp 17; Temp 97.5; Pulse Ox 99% ; bp 10:29 Body Mass Index 25.85 (77.11 kg, 172.72 cm) hb ED Course: 10:24 Patient arrived in ED. as 10:28 Sharath Santana, RN is Primary Nurse. bp 10:30 Arm band placed on. bp 10:30 Patient has correct armband on for positive identification. Bed in low position. Call bp light in reach. Side rails up X2. panel monitor on. Pulse ox on. NIBP on. 10:31 Triage completed. hb 10:31 Artie Rivers PA is PHCP. jm 10:31 Felice Allred MD is Attending Physician. [facility] 10:49 Initial lab(s) drawn, by sc, sent to lab. Inserted saline lock: 20 gauge in right 5 antecubital area, using aseptic technique. 10:52 D-Dimer Sent. 5 10:52 Basic Metabolic Panel Sent. 5 10:52 CBC with Diff Sent. 5 10:[address] [facility] 10:52 Magnesium Sent. 5 10:52 NT PRO-BNP Sent. 5 10:52 PT-INR Sent. 5 10:52 Troponin (emerg Dept Use Only) Sent. 5 11:48 XRAY Chest (1 view) In Process Unspecified. EDMS 12:01 Gwendolyn Peters MD is Hospitalizing Provider. [facility] 13:35 No provider procedures requiring assistance completed. Patient admitted, IV remains in bp place. Patient maintains SpO2 saturation greater than 95% on room air. 15:31 IV discontinued, intact, bleeding controlled, No redness/swelling at site. Pressure bp dressing applied. Administered Medications: No medications were administered Outcome: 12:01 Decision to Hospitalize by Provider. jmm 14:11 Admitted to Tele accompanied by tech, via wheelchair, room 422, with chart, Report bp called to OTTONIEL SCANLON 14:11 Condition: stable 14:11 Instructed on the need for admit. 14:46 Discharge ordered by MD. jmm 15:33 Discharged to home ambulatory. bp 15:33 Discharge ordered by MD. bp 15:33 Patient left the ED. bp Signatures: Dispatcher [employer] EDMS Artie Rivers PA PA jmm Martinez, Amelia as Baxter, Heather, RN RN Pepper Sims Sharath Robert, CAPO RN bp
--- NOTE | 2018-12-20 12:03 | EDPHYS ---
Physician Documentation [facility] Name: Anthony Bailey Age: 58 yrs Sex: Male : 1960 Arrival Date: 12/20/2018 Time: 10:24 Bed 17 Private MD: ED Physician Felice Allred HPI: 12/20 10:44 This 58 yrs old Male presents to ER via Ambulatory with complaints of Chest jmm Pain. 10:44 The patient or guardian reports chest pain that is located primarily in the substernal [facility] area. Onset: acutely, 2 hour(s) ago. The pain does not radiate. Associated signs and symptoms: Pertinent negatives: abdominal pain. The chest pain is described as sharp. This is a 58 yea rold male with a history of CAD, HTN that presents to the ED with complaints of left sided chest pain which began after stretching. patient states symptoms are worsened with deep inspiration. patient states taking nitro po without relief. . Historical: - Allergies: 10:29 Sulfa (Sulfonamide Antibiotics); bp - PMHx: 10:29 Back pain; Hypertension; [place] 2017; Myocardial infarction; bp - Immunization history:: Adult Immunizations up to date. - Social history:: Smoking status: unknown. - Ebola Screening: : No symptoms or risks identified at this time. ROS: 10:44 Constitutional: Negative for fever, chills, and weight loss. jmm 10:44 Cardiovascular: Positive for chest pain. 10:44 Respiratory: Positive for shortness of breath. 10:44 Abdomen/GI: Negative for abdominal pain. 10:44 All other systems are negative. Exam: 10:44 Head/Face: atraumatic. Eyes: EOMI, no conjunctival erythema appreciated ENT: Moist jmm Mucus Membranes Neck: Trachea midline, Supple Chest/axilla: Normal chest wall appearance and motion. 10:44 Constitutional: The patient appears alert, awake, anxious, uncomfortable. 10:44 Cardiovascular: Rate: normal, Rhythm: regular, Pulses: no pulse deficits are appreciated. 10:44 Respiratory: the patient does not display signs of respiratory distress, Respirations: normal, Breath sounds: are clear throughout. 10:44 Abdomen/GI: Inspection: abdomen appears normal, Bowel sounds: normal, Palpation: abdomen is soft and non-tender, in all quadrants. 10:44 Back: ROM is normal. 10:44 Musculoskeletal/extremity: ROM: intact in all extremities. 10:44 Skin: Appearance: normal except for affected area, Color: normal in color. 10:44 Neuro: Orientation: is normal, Mentation: is normal, Memory: is normal. 10:44 Psych: Behavior/mood is pleasant, cooperative. Vital Signs: 10:29 BP 174 / 82; Pulse 93; Resp 16; Temp 97.2; Pulse Ox 99% on R/A; Weight 77.11 kg; Height hb 5 ft. 8 in. (172.72 cm); Pain 6/10; 11:25 BP 140 / 84; Pulse 67; Resp 18; Temp 97.5(TE); Pulse Ox 98% on R/A; mh5 12:00 BP 151 / 81; Pulse 71; Resp 16; Pulse Ox 100% ; bp 13:00 BP 174 / 101; Pulse 77; Resp 16; Pulse Ox 99% ; bp 14:00 BP 149 / 85; Pulse 71; Resp 17; Pulse Ox 99% ; bp 15:00 BP 157 / 83; Pulse 75; Resp 17; Temp 97.5; Pulse Ox 99% ; bp 10:29 Body Mass Index 25.85 (77.11 kg, 172.72 cm) hb MDM: 10:35 Patient medically screened. [facility] 12:00 The patient was given aspirin in the Emergency Department. Data reviewed: vital signs, [facility] nurses notes, lab test result(s), EKG, radiologic studies, plain films. ED course: I discussed the patient with Dr. Peters whom accepted admission. . 16:42 Refusal of service: The patient/guardian displays adequate decision making capability [facility] and despite a detailed discussion of alternatives, benefits, risks, and consequences refuses: Admission to the hospital for further work-up and treatment. 12/20 10:33 Order name: Basic Metabolic Panel; Complete Time: 11:12 bp 12/20 10:33 Order name: CBC with Diff; Complete Time: 11: bp 12/20 10:33 Order name: LFT's; Complete Time: 11:12 bp 12/20 10:33 Order name: Magnesium; Complete Time: 11:12 bp 12/20 10:33 Order name: NT PRO-BNP; Complete Time: 11:12 bp 12/20 10:33 Order name: PT-INR; Complete Time: 11:12 bp 12/20 10:33 Order name: Troponin (emerg Dept Use Only); Complete Time: 11:12 bp 12/20 10:33 Order name: XRAY Chest (1 view); Complete Time: 12:04 bp 12/20 10:33 Order name: EKG; Complete Time: 10:34 bp 12/20 10:33 Order name: Cardiac monitoring; Complete Time: 10:33 bp 12/20 10:43 Order name: D-Dimer; Complete Time: 11:12 [facility] 12/20 10:33 Order name: EKG - Nurse/Tech; Complete Time: 10:33 bp 12/20 10:33 Order name: IV Saline Lock; Complete Time: 10:44 bp 12/20 10:33 Order name: Labs collected and sent; Complete Time: 10:44 bp 12/20 10:33 Order name: O2 Per Protocol; Complete Time: 10:33 bp 12/20 10:33 Order name: O2 Sat Monitoring; Complete Time: 10:33 bp Administered Medications: No medications were administered Disposition: 12/21 07:05 Co-signature as Attending Physician, Felice Allred MD. rn Disposition: 12/20/18 15:33 Discharged to Home. Impression: Chest pain, unspecified. - Condition is Stable. - Medication Reconciliation Form, Thank You Letter, Antibiotic Education, Prescription Opioid Use form. Signatures: Dispatcher [employer] Tess Reddy, RN RN Artie Arias PA PA jmm Nieto, Roman, MD MD rn Peltier, Brian, RN RN bp Corrections: (The following items were deleted from the chart) 12/20 13:33 12:01 Hospitalization Ordered by Gwendolyn Peters MD for Observation. Preliminary diagnosis dw is Chest pain, unspecified. Bed requested for Telemetry/MedSurg (observation). Status is Observation. Condition is Stable. Problem is new. Symptoms are unchanged. UTI on Admission? No. shawanda 14:46 13:33 12/20/2018 12:01 Hospitalization Ordered by Gwendolyn Peters MD for Observation. [facility] Preliminary diagnosis is Chest pain, unspecified. Bed requested for Telemetry/MedSurg (observation). Status is Observation. Condition is Stable. Problem is new. Symptoms are unchanged. UTI on Admission? No. dw 15:17 14:46 12/20/2018 14:46 Discharged to Home. Impression: Chest pain, unspecified. jmm Condition is Stable. Forms are Medication Reconciliation Form, Thank You Letter, Antibiotic Education, Prescription Opioid Use. Follow up: Private Physician; When: 2 - 3 days; Reason: Recheck today's complaints, Continuance of care, Re-evaluation by your physician. jmm
[2018-12-20] MEDS ORDERED: ACETAMINOPHEN 500 MG TAB PO PRN (14:19)
[2018-12-20] MEDS ORDERED: MORPHINE 4 MG/ML SYR IV PRN (14:19)
[2018-12-20] MEDS ORDERED: NITROGLYCERIN 0.4 MG/TAB SL PRN (14:19)
[2018-12-20 15:48] VITALS: TEMP 97.5
[2018-12-20 15:50] VITALS: O2SAT 99
[2018-12-20 15:53] VITALS: BP 157/83
--- NOTE | 2018-12-20 17:03 | P.HP ---
Certification for Inpatient Patient admitted to: Observation With expected LOS: <2 Midnights Patient will require the following post-hospital care: None Practitioner: I am a practitioner with admitting privileges, knowledge of patient current condition, hospital course, and medical plan of care. Services: Services provided to patient in accordance with Admission requirements found in Title 42 Section 412.3 of the Code of Federal Regulations Patient History Date of Service: 12/20/18 Reason for admission: Chest pain History of Present Illness: Patient is a 58-year-old male with past medical history of pre hypertension hyperlipidemia who had IL 2 years ago with cardiac catheterization in 2017 that showed 30% blockage LAD was normal did not receive any stents comes in with sudden onset of chest pain after patient was stretching in the morning. The patient did not have any associated nausea vomiting diaphoresis or palpitations. Denied any fevers chills cough or sputum production. Did report some pain with deep breaths. His symptoms are constant moderate progressively worsening. Patient therefore came into the ER for further evaluation. In the ER his initial cardiac enzymes were negative. EKG did not show any ST elevation. Patient did have mild elevation of his blood pressure. Patient was ordered aspirin and then referred for admission. When seen in the ER he was awake alert oriented x3, sitting his symptoms had improved significantly. Allergies Sulfa (Sulfonamide Antibiotics) [Sulfa(Sulfonamide Antibiotics)] Allergy ( Intermediate, Verified 05/09/11 08:17) Nausea/Vomiting Home medications list reviewed: Yes Home Medications: Gabapentin [Gralise] 600 mg PO TID 06/23/16 Aspirin [Aspirin EC 81 MG] 81 mg PO DAILY #90 tablet. 06/25/16 Atorvastatin Calcium [Lipitor] 80 mg PO BEDTIME #30 tab 06/25/16 Metoprolol Tartrate [Lopressor*] 25 mg PO BID 6AM 6PM #60 tab 06/25/16 Nitroglycerin [Nitrostat*] 0.4 mg SL UD PRN #30 tab 06/25/16 Prasugrel Hydrochloride [Effient*] 10 mg PO DAILY #30 tab 06/25/16 traMADol HCL [Ultram*] 50 mg PO TIDP PRN #30 tab 06/25/16 - Past Medical/Surgical History Diabetic: No -: Pre hypertension -: Back pain -: GERD -: Nephrolithiasis -: Obstructive sleep apnea -: Mild CAD -: Cyst removed from the L5 region -: Bilateral knee surgery -: UP3 -: Heart catheterization 2017 no stents Psychosocial/ Personal History: The patient has a girlfriend of many years. He has 2 children. 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 - Family History Sister -: Heart disease - Social History Smoking Status: Never smoker Alcohol use: Yes CD- Drugs: No Caffeine use: Yes Place of Residence: Home Review of Systems 10-point ROS is otherwise unremarkable Physical Examination - Vital Signs Temperature: 97.5 F Blood Pressure: 157/83 Pulse: 75 Respirations: 17 - Physical Exam General: Alert, In no apparent distress, Oriented x3 HEENT: Atraumatic, PERRLA, Mucous membr. moist/pink, EOMI, Sclerae nonicteric Neck: Supple, 2+ carotid pulse no bruit, No LAD, Without JVD or thyroid abnormality Respiratory: Clear to auscultation bilaterally, Normal air movement Cardiovascular: No edema, Normal pulses, Regular rate/rhythm, Normal S1 S2 Gastrointestinal: Normal bowel sounds, Soft and benign, Non-distended, No tenderness Musculoskeletal: No clubbing, No tenderness Integumentary: No rashes, No erythema Neurological: Normal gait, Normal speech, Normal strength at 5/5 x4 extr, Normal tone, Normal affect - Studies Laboratory Data (last 24 hrs) 12/20/18 10:35: PT 11.6, INR 0.98 12/20/18 10:35: WBC 7.0, Hgb 15.0, Hct 42.9, Plt Count 210 12/20/18 10:35: Sodium 141, Potassium 3.9, BUN 15, Creatinine 1.11, Glucose 113 H, Magnesium 2.2, Total Bilirubin 0.5, AST 23, ALT 31, Alkaline Phosphatase 112 Imagings Data: Chest x-ray shows no acute cardiopulmonary process Assessment and Plan - Problems (Diagnosis) (1) Chest pain Current Visit: No Status: Acute Qualifiers: Chest pain type: precordial pain Qualified Code(s): R07.2 - Precordial pain (2) HTN (hypertension) Current Visit: No Status: Acute Qualifiers: (3) Back pain Current Visit: No Status: Chronic Qualifiers: Back pain location: low back pain Back pain laterality: midline Sciatica presence: without sciatica (4) GERD (gastroesophageal reflux disease) Current Visit: No Status: Chronic Qualifiers: Esophagitis presence: without esophagitis Qualified Code(s): K21.9 - Gastro -esophageal reflux disease without esophagitis (5) Hyperlipidemia Current Visit: No Status: Chronic Qualifiers: Hyperlipidemia type: mixed hyperlipidemia Qualified Code(s): E78.2 - Mixed hyperlipidemia (6) Obstructive sleep apnea Current Visit: No Status: Chronic - Plan Start on chest pain guidelines. Echocardiogram Consult cardiology Serial cardiac enzymes and EKG IV fluids. Morphine and nitro p.r.n. pain D-dimer is negative doubt PE. No musculoskeletal point tenderness doubt chest wall pain. Patient has risk factors for heart disease including previous mild coronary artery disease hyperlipidemia and currently hypertensive. - Advance Directives Does patient have a Living Will: No Does patient have a Durable POA for Healthcare: No - Code Status/Comfort Care Code Status Assessed: Yes
[2018-12-20] MEDS ORDERED: ATORVASTATIN 80 MG TAB PO SCH (21:00)
[2018-12-20] MEDS ORDERED: METOPROLOL TAR 25 MG TAB PO SCH (21:00)
[2018-12-21] MEDS ORDERED: ENOXAPARIN 40 MG/0.4 ML SQ SCH (09:00)
[2018-12-21] MEDS ORDERED: LISINOPRIL 10 MG TAB PO SCH (09:00)
[2018-12-21] MEDS ORDERED: ASPIRIN EC 81 MG TAB PO SCH (09:00)
== END 2018-12-20 15:33 | disposition home or self-care (01) ==
LOC: ER 10:23 → UNDOADMOB 12:41 → ERHOLD 12:41 → 4TH 14:12 → ERHOLD 14:12
DX: R07.9 Chest pain, unspecified (principal); Z88.2 Allergy status to sulfonamides
CPT/HCPCS: 36415; 71045; 80048; 80076; 83735; 83880; 84484; 85025; 85379; 85610; 93005; 99285

== ENCOUNTER 2019-01-20 20:59 | Emergency (ER) | payer BC ==
--- OUTSIDE RECORDS SUMMARY | 2019-01-20 21:01 | XMS REPORT ---
:1960 [facility] Address [address] [place] [address] Care Team Providers Name Role Phone Unavailable [...] 71.0 >60 Unit of measure: mL/min/1.73 code=GFR) [id number] Range:Healthy Adults >90 mL/min/1.73 m2 For Chronic Kidney Disease: Stage II Mild Decrease in GFR 60-90 Stage III Moderate Decrease in GFR 30-59 Stage IV Severe Decrease in GFR 15-29 Stage V Kidney Failure <15 CREATININE (test code=CREAT) 1.07 mg/dL 0.55-1.30 CALCIUM (test code=CA) 9.1 mg/dL 8.2-10.1 HGB [id number] 11:40:00 Test Item Value Reference Range Comments HEMOGLOBIN (test code=HGB) 14.9 g/dL 12-16 HEMATOCRIT (test code=HCT) 42.7 % 37-47 - MRI UP JNT W/O CONT [id number] 16:27:00 Patient Name: BUDDY PÉREZ Unit No: [id number] EXAMS: CPT CODE: [id number] MRI UP JNT W/[place] [id number] MRI OF THE LEFT SHOULDER DIAGNOSIS: 1. [...] Robel Branham MD Technologist: Eleni Enciso(R) TranscribedD/ (1628) Debbi [facility] NAME: BUDDY PÉREZ [address] [facility] PHYS: JOANNALISARadha Chula Sams : 1960 AGE: 57 SEX: M [place] [phone] LOC: Y.MRI PHONE #: EXAM DATE: 07/11/2018 STATUS: REG CLI FAX #: RAD #: D/C DT PAGE 1 Signed Report Patient Name: BUDDY PÉREZ Unit No: [id number] EXAMS: CPT CODE: [id number] [place] JNT [place] [id number] < Continued> Orig Print D/T: S: 07/11/2018 (1632) [facility] NAME: BUDDY PÉREZ [address] [facility] PHYS: Robel Santos : 1960 AGE: 57 SEX: M [place] [phone] LOC: Y.MRI PHONE #: [phone] EXAM DATE: STATUS: REG CLI FAX #: [phone] RAD #: D/C DT PAGE 2 Signed Report
[2019-01-20 21:37] LABS: Protime INR 0.99
[2019-01-20 21:38] LABS: Absolute Lymphocytes (CBC) 1.6 K/uL (0.7-4.9); Basophils % 0.7 % (0-1.3); Hematocrit 42.8 % (39.6-49.0); Lymphocytes % 18.7 % (15.3-44.8); MPV 7.8 fL (7.6-11.3); RBC Red Blood Cell Count 5.01 M/uL (4.33-5.43)
--- NOTE | 2019-01-20 21:47 | RAD REPORT ---
EXAM DESCRIPTION: RAD - Chest Single View - 01/20/2019 9:28 pm CLINICAL HISTORY: CHEST PAIN Chest pain. COMPARISON: Chest Single View dated 12/20/2018; Chest Single View dated 10/17/2018; Chest Single View dated 01/21/2018; Chest Single View dated 02/12/2017 FINDINGS: Portable technique limits examination quality. The lungs are grossly clear. The heart is normal in size. No displaced fractures. IMPRESSION: No acute intrathoracic process suspected.
[2019-01-20 21:53] LABS: ALT/SGPT 38 U/L (12-78); AST/SGOT 26 U/L (15-37); Albumin 3.8 g/dL (3.4-5.0); Alkaline Phosphatase 99 U/L (45-117); BUN Blood Urea Nitrogen 17 mg/dL (7-18); Bicarbonate 26 mmol/L (21-32); Bilirubin Direct < 0.1 mg/dL (0-0.2); Bilirubin Total 0.4 mg/dL (0.2-1.0); Glucose Level 84 mg/dL (74-106); Magnesium 2.3 mg/dL (1.8-2.4); NT PRO-BNP 43 pg/mL (<125); Potassium 3.8 mmol/L (3.5-5.1); Sodium Level 144 mmol/L (136-145); Troponin (Emerg Dept Use Only) < 0.02 ng/mL (0.0-0.045)
--- NOTE | 2019-01-21 01:20 | ER ---
Nurse's Notes [facility] Name: Anthony Bailey Age: 58 yrs Sex: Male : 1960 Arrival Date: 01/20/2019 Time: 21:01 Bed 27 Private MD: Diagnosis: Chest pain, unspecified Presentation: 01/20 21:10 Presenting complaint: Patient states: At about 7:30 pm I felt my heart pounding and I ca1 think my blood pressure was high, so I took Nitroglycerin, sat down on my chair but couldn't feel comfortable. My chest feels so tight that I can't breathe. I had a heart attack on 2017" Reports nausea, and lightheadedness. Denies vomiting and dizziness. I. Transition of care: patient was not received from another setting of care. Onset of symptoms was January 20, 2019 at 19:30. Risk Assessment: Do you want to hurt yourself or someone else? Patient reports no desire to harm self or others. Initial Sepsis Screen: Does the patient meet any 2 criteria? No. Patient's initial sepsis screen is negative. Does the patient have a suspected source of infection? No. Patient's initial sepsis screen is negative. Care prior to arrival: Medication(s) given: Nitroglycerin, x 1. 21:10 Method Of Arrival: Wheelchair ca1 21:10 Acuity: DANIEL 3 ca1 Triage Assessment: 01/21 01:00 General: Appears in no apparent distress. Behavior is calm, cooperative. Pain: Denies tr5 pain. Cardiovascular: Reports chest pain, Heart tones present Capillary refill < 3 seconds. Historical: - Allergies: 01/20 21:20 Sulfa (Sulfonamide Antibiotics); ca1 - Home Meds: 21:20 metoprolol tartrate Oral [Active]; ca1 - PMHx: 21:20 Back pain; Hypertension; [place] 2017; Myocardial infarction; ca1 - PSHx: 21:20 Shoulder Surgery; Knee Surgery; ca1 - Immunization history:: Adult Immunizations up to date, Flu vaccine is not up to date. - Social history:: Smoking status: Patient/guardian denies using tobacco. - Ebola Screening: : Patient negative for fever greater than or equal to 101.5 degrees Fahrenheit, and additional compatible Ebola Virus Disease symptoms Patient denies exposure to infectious person Patient denies travel to an Ebola-affected area in the 21 days before illness onset No symptoms or risks identified at this time. Screenin:56 Abuse screen: Denies threats or abuse. Denies injuries from another. Nutritional mg2 screening: No deficits noted. Tuberculosis screening: No symptoms or risk factors identified. Fall Risk IV access (20 points). Assessment: 23:56 Reassessment: patient informed that he will have repeat topronin \\T\\ 0030H. patient mg2 agreed. 12 01:00 Pain: Pain does not radiate. Pain began suddenly. tr5 01:37 Reassessment: Patient appears in no apparent distress at this time. Patient is alert, rr5 oriented x 3, equal unlabored respirations, skin warm/dry/pink. discharge instruction given and explained without complaints made, verbalized understading. Vital Signs: 01/20 21:10 BP 149 / 76; Pulse 95; Resp 19 S; Pulse Ox 98% on R/A; Weight 94.8 kg (R); Height 5 ft. ca1 9 in. (175.26 cm) (R); Pain 7/10; 01/21 01:36 BP 130 / 72; Pulse 71; Resp 16; Temp 98.4; Pulse Ox 98% ; rr5 12 21:10 Body Mass Index 30.86 (94.80 kg, 175.26 cm) ca1 ED Course: 01/20 21:01 Patient arrived in ED. cl3 21:07 Agustin Sparrow, FERMIN is PHCP. pm1 21:07 Luca Mathis MD is Attending Physician. pm1 21:10 Arm band placed on right wrist. EKG completed in triage. Results shown to MD. ca1 21:18 Colby Mojica, RN is Primary Nurse. rr5 21:19 Triage completed. ca1 21:23 Raphael Wu, RN is Primary Nurse. tr5 21:25 Inserted saline lock: 20 gauge in right forearm, using aseptic technique. Blood mg2 collected. 21:28 XRAY Chest (1 view) In Process Unspecified. EDMS 23:57 Patient has correct armband on for positive identification. mg2 01/21 01:00 electronic device monitor on. Pulse ox on. NIBP on. tr5 01:19 Moahn Weiner MD is Referral Physician. pm1 01:19 Christopher Phillips MD is Referral Physician. pm1 01:36 No provider procedures requiring assistance completed. IV discontinued, intact, rr5 bleeding controlled, No redness/swelling at site. Pressure dressing applied. Patient maintains SpO2 saturation greater than 95% on room air. Administered Medications: No medications were administered Outcome: 01:19 Discharge ordered by MD. pm1 01:36 Discharged to home ambulatory. rr5 01:36 Condition: stable 01:36 Discharge instructions given to patient, Instructed on discharge instructions, follow up and referral plans. Demonstrated understanding of instructions, follow-up care. 01:38 Patient left the ED. rr5 Signatures: Dispatcher [employer] EDMS Agustin Sparrow, FERMIN [employer] pm1 Mukul Soni RN RN mg2 Colby Mojica RN RN rr5 Heide Lopez RN RN ca1 Raphael Wu RN RN tr5 Alex Martinez cl3 Corrections: (The following items were deleted from the chart) 01/20 21:21 21:20 BP 149 / 76; Pulse 95bpm; Resp 19bpm; Spontaneous; Pulse Ox 98% RA; 94.8 kg ca1 Reported; Height 5 ft. 9 in. Reported; BMI: 30.8; Pain 7/10; ca1
--- NOTE | 2019-01-21 01:21 | EDPHYS ---
Physician Documentation [facility] Name: Anthony Bailey Age: 58 yrs Sex: Male : 1960 Arrival Date: 01/20/2019 Time: 21:01 Bed 27 Private MD: ED Physician Luca Mathis HPI: 01/21 00:57 This 58 yrs old Male presents to ER via Wheelchair with complaints of Chest pm1 Pain. 00:57 The patient or guardian reports chest pain that is located primarily in the anterior pm1 aspect of left upper chest and left side of diaphragm . 00:57 Onset: today, at 19:30. The pain does not radiate. Associated signs and symptoms: pm1 Pertinent positives: headache from 1 nitro pill, Pertinent negatives: abdominal pain, cough, nausea, shortness of breath, vomiting. The chest pain is described as sharp. Duration: The patient or guardian reports a single episode. Modifying factors: the symptoms are aggravated by deep breath, palpation of area. Severity of pain: in the emergency department the pain is unchanged. Has been evaluated for his chest pain by Dr. Phillips over the past 3 weeks with nuclear stress test, U/S, labs with [address] Phillips told him that his heart is fine and he needs to follow up with Dr. Weiner to look for alternative causes for chest pain that is not his heart. Historical: - Allergies: 01/20 21:20 Sulfa (Sulfonamide Antibiotics); ca1 - Home Meds: 21:20 metoprolol tartrate Oral [Active]; ca1 - PMHx: 21:20 Back pain; Hypertension; [place] 2017; Myocardial infarction; ca1 - PSHx: 21:20 Shoulder Surgery; Knee Surgery; ca1 - Immunization history:: Adult Immunizations up to date, Flu vaccine is not up to date. - Social history:: Smoking status: Patient/guardian denies using tobacco. - Ebola Screening: : Patient negative for fever greater than or equal to 101.5 degrees Fahrenheit, and additional compatible Ebola Virus Disease symptoms Patient denies exposure to infectious person Patient denies travel to an Ebola-affected area in the 21 days before illness onset No symptoms or risks identified at this time. ROS: 01/21 00:57 Constitutional: Negative for fever, chills, and weight loss, Eyes: Negative for injury, pm1 pain, redness, and discharge, ENT: Negative for injury, pain, and discharge, Neck: Negative for injury, pain, and swelling. Respiratory: Negative for shortness of breath, cough, wheezing, and pleuritic chest pain, Abdomen/GI: Negative for abdominal pain, nausea, vomiting, diarrhea, and constipation, Back: Negative for injury and pain, MS/Extremity: Negative for injury and deformity, Skin: Negative for injury, rash, and discoloration. Cardiovascular: Positive for chest pain, Negative for edema, orthopnea, palpitations. Neuro: Positive for headache, Negative for numbness, tingling. Exam: 00:57 Constitutional: This is a well developed, well nourished patient who is awake, alert, pm1 and in no acute distress. Head/Face: Normocephalic, atraumatic. Eyes: Pupils equal round and reactive to light, extra-ocular motions intact. Lids and lashes normal. Conjunctiva and sclera are non-icteric and not injected. Cornea within normal limits. Periorbital areas with no swelling, redness, or edema. ENT: Nares patent. No nasal discharge, no septal abnormalities noted. Tympanic membranes are normal and external auditory canals are clear. Oropharynx with no redness, swelling, or masses, exudates, or evidence of obstruction, uvula midline. Mucous membranes moist. Neck: Trachea midline, no thyromegaly or masses palpated, and no cervical lymphadenopathy. Supple, full range of motion without nuchal rigidity, or vertebral point tenderness. No Meningismus. 00:57 Cardiovascular: Regular rate and rhythm with a normal S1 and S2. No gallops, murmurs, or rubs. Normal PMI, no JVD. No pulse deficits. Respiratory: Lungs have equal breath sounds bilaterally, clear to auscultation and percussion. No rales, rhonchi or wheezes noted. No increased work of breathing, no retractions or nasal flaring. Abdomen/GI: Soft, non-tender, with normal bowel sounds. No distension or tympany. No guarding or rebound. No evidence of tenderness throughout. Back: No spinal tenderness. No costovertebral tenderness. Full range of motion. Skin: Warm, dry with normal turgor. Normal color with no rashes, no lesions, and no evidence of cellulitis. MS/ Extremity: Pulses equal, no cyanosis. Neurovascular intact. Full, normal range of motion. 00:57 Chest/axilla: Palpation: crepitus, is not appreciated, tenderness, of the anterior aspect of left upper chest and left side of diaphragm, that totally reproduces the patient's complaints. 00:57 Neuro: Orientation: is normal, Motor: is normal, moves all fours, Gait: is steady, at a normal pace, without difficulty. Vital Signs: 01/20 21:10 BP 149 / 76; Pulse 95; Resp 19 S; Pulse Ox 98% on R/A; Weight 94.8 kg (R); Height 5 ft. ca1 9 in. (175.26 cm) (R); Pain 7/10; 01/21 01:36 BP 130 / 72; Pulse 71; Resp 16; Temp 98.4; Pulse Ox 98% ; rr5 01/20 21:10 Body Mass Index 30.86 (94.80 kg, 175.26 cm) ca1 MDM: 01/20 21:07 Patient medically screened. pm1 01/21 01:18 Data reviewed: vital signs. Data interpreted: Pulse oximetry: on room air is 98 %. pm1 Interpretation: normal. Counseling: I had a detailed discussion with the patient and/or guardian regarding: the historical points, exam findings, and any diagnostic results supporting the discharge/admit diagnosis, lab results, radiology results, the need for outpatient follow up, to return to the emergency department if symptoms worsen or persist or if there are any questions or concerns that arise at home. 01:18 ED course: Patient with two negative 4 hour troponins, atypical chest pain reproduced pm1 with deep breathing and palpation. According to the patient cleared by Dr. Phillips of heart problems and instructed to follow up with PCP. Therefore will discharge the patient home to follow up with Dr. Weiner. 01/20 21:17 Order name: Basic Metabolic Panel; Complete Time: 21:56 pm1 01/20 21:17 Order name: CBC with Diff; Complete Time: 21:56 pm1 01/20 21:17 Order name: LFT's; Complete Time: 21:56 pm1 01/20 21:17 Order name: Magnesium; Complete Time: 21:56 pm1 01/20 21:17 Order name: NT PRO-BNP; Complete Time: 21:56 pm1 12/02 21:17 Order name: PT-INR; Complete Time: 21:56 pm1 01/20 21:17 Order name: Troponin (emerg Dept Use Only); Complete Time: 21:56 pm1 01/20 21:17 Order name: XRAY Chest (1 view); Complete Time: 21:56 pm1 01/20 21:17 Order name: EKG; Complete Time: 21:18 pm1 01/20 21:17 Order name: Cardiac monitoring; Complete Time: 22:38 pm1 01/20 21:17 Order name: EKG - Nurse/Tech; Complete Time: 21:23 pm1 01/20 21:17 Order name: IV Saline Lock; Complete Time: 21:24 pm1 01/20 21:17 Order name: Labs collected and sent; Complete Time: 21:24 pm1 01/20 23:49 Order name: Troponin (emerg Dept Use Only): due \T\0030; Complete Time: 00:57 mg2 01/20 21:17 Order name: O2 Per Protocol; Complete Time: 22:38 pm1 01/20 21:17 Order name: O2 Sat Monitoring; Complete Time: 22:38 pm1 Administered Medications: No medications were administered Disposition: 07:35 Co-signature as Attending Physician, Luca Mathis MD I agree with the assessment and tw4 plan of care. Disposition: 01/21/19 01:19 Discharged to Home. Impression: Chest pain, unspecified. - Condition is Stable. - Discharge Instructions: Nonspecific Chest Pain. - Medication Reconciliation Form, Thank You Letter, Antibiotic Education, Prescription Opioid Use form. - Follow up: Emergency Department; When: As needed; Reason: Worsening of condition. Follow up: Mohan Weiner MD; When: 2 - 3 days; Reason: Recheck today's complaints, Continuance of care, Re-evaluation by your physician. Follow up: Christopher Phillips MD; When: 2 - 3 days; Reason: Recheck today's complaints, Continuance of care, Re-evaluation by your physician. - Problem is new. - Symptoms have improved. Signatures: Dispatcher [employer] EDMS Agustin Sparrow, BRUSH MACHINE SETTER BRUSH MACHINE SETTER pm1 Luca Mathis MD MD tw4 Colby Mojica RN RN rr5 Heide Lopez RN RN ca1 Corrections: (The following items were deleted from the chart) 01:38 01:19 01/21/2019 01:19 Discharged to Home. Impression: Chest pain, unspecified. rr5 Condition is Stable. Forms are Medication Reconciliation Form, Thank You Letter, Antibiotic Education, Prescription Opioid Use. Follow up: Emergency Department; When: As needed; Reason: Worsening of condition. Follow up: Mohan Weiner; When: 2 - 3 days; Reason: Recheck today's complaints, Continuance of care, Re-evaluation by your physician. Follow up: Christopher Phillips; When: 2 - 3 days; Reason: Recheck today's complaints, Continuance of care, Re-evaluation by your physician. Problem is new. Symptoms have improved. pm1
[2019-01-21 06:21] VITALS: O2SAT 98
[2019-01-21 06:23] VITALS: BP 130/72; TEMP 98.4
--- NOTE | 2019-01-21 08:01 | EKG ---
Test Date: 2019-01-20 Test Time: 21:07:41 Accounting Bookkeeper: LOYDA MEASUREMENT RESULTS: Intervals: Rate: 90 KS: 140 QRSD: 76 QT: 352 QTc: 430 [place]: P: 43 KS: 140 QRS: 42 T: 0 INTERPRETIVE STATEMENTS: Normal sinus rhythm Normal ECG Compared to ECG 12/20/2018 10:29:34 T-wave abnormality no longer present Electronically Signed On 01-21-19 08:00:57 TECHNICAL ASSOCIATE by Christopher Phillips
== END 2019-01-21 01:38 | disposition home or self-care (01) ==
LOC: ER 20:59
DX: R07.9 Chest pain, unspecified (principal); Z88.2 Allergy status to sulfonamides; I10 Essential (primary) hypertension; I25.2 Old myocardial infarction
CPT/HCPCS: 36415; 71045; 80048; 80076; 83735; 83880; 84484; 85025; 85610; 93005; 99285

== ENCOUNTER 2019-04-05 21:02 | Emergency (ER) | payer BC ==
--- OUTSIDE RECORDS SUMMARY | 2019-04-05 21:03 | XMS REPORT ---
:1960 [facility] Address [address] [place] [address] Care Team Providers Name Role Phone Unavailable [...] 71.0 >60 Unit of measure: mL/min/1.73 code=GFR) [id number] Range:Healthy Adults >90 mL/min/1.73 m2 For Chronic Kidney Disease: Stage II Mild Decrease in GFR 60-90 Stage III Moderate Decrease in GFR 30-59 Stage IV Severe Decrease in GFR 15-29 Stage V Kidney Failure <15 CREATININE (test code=CREAT) 1.07 mg/dL 0.55-1.30 CALCIUM (test code=CA) 9.1 mg/dL 8.2-10.1 HGB [id number] 11:40:00 Test Item Value Reference Range Comments HEMOGLOBIN (test code=HGB) 14.9 g/dL 12-16 HEMATOCRIT (test code=HCT) 42.7 % 37-47 - MRI UP JNT W/O CONT [id number] 16:27:00 Patient Name: BUDDY PÉREZ Unit No: [id number] EXAMS: CPT CODE: [id number] [place] JNT [place] [address] MRI OF THE LEFT SHOULDER DIAGNOSIS: 1. [...] Robel Branham MD Technologist: Eleni Enciso(R) TranscribedD/ (1626) [facility] NAME: BUDDY PÉREZ [address] [facility] PHYS: JOANNALISARadha Chula Sams : 1960 AGE: 57 SEX: M [place] [id number] LOC: Y.MRI PHONE #: [phone] EXAM DATE: 07/11/2018 STATUS: REG CLI FAX #: RAD #: D/C DT PAGE 1 Signed Report Patient Name: BUDDY PÉREZ Unit No: [id number] EXAMS: CPT CODE: [id number] [place] J[place] [address] < Continued> Orig Print D/T: S: 07/11/2018 (1638) [facility] NAME: BUDDY PÉREZ [address] [facility] PHYS: Robel Santos : 1960 AGE: 57 SEX: M [place] [id number] LOC: Y.MRI PHONE #: [phone] EXAM DATE: STATUS: REG CLI FAX #: [phone] RAD #: D/C DT PAGE 2 Signed Report
[2019-04-05 21:50] LABS: Basophils % 0.9 % (0-1.3); Hematocrit 45.8 % (39.6-49.0); Lymphocytes % 16.2 % (15.3-44.8); Protime INR 0.96; RBC Red Blood Cell Count 5.33 M/uL (4.33-5.43)
[2019-04-05] MEDS ORDERED: NA CHLORIDE 0.9% 1,000 ML ONE (21:52)
[2019-04-05] MEDS ORDERED: LORazepam 2 MG/ML VIAL ONE (21:52)
[2019-04-05 22:04] LABS: ALT/SGPT 113 U/L (12-78); AST/SGOT 44 U/L (15-37); Alkaline Phosphatase 101 U/L (45-117); BUN Blood Urea Nitrogen 18 mg/dL (7-18); Bicarbonate 29 mmol/L (21-32); Bilirubin Direct 0.1 mg/dL (0-0.2); Bilirubin Total 0.5 mg/dL (0.2-1.0); Glucose Level 113 mg/dL (74-106); Magnesium 2.4 mg/dL (1.8-2.4); NT PRO-BNP 75 pg/mL (<125); Potassium 3.8 mmol/L (3.5-5.1); Protein, Total 7.5 g/dL (6.4-8.2); Sodium Level 144 mmol/L (136-145); Troponin I < 0.02 ng/mL (0.0-0.045)
--- NOTE | 2019-04-06 00:15 | ER ---
Nurse's Notes [facility] Name: Anthony Bailey Age: 58 yrs Sex: Male : 1960 Arrival Date: 04/05/2019 Time: 21:04 Bed 5 Private MD: Mohan Weiner E Diagnosis: Chest pain, unspecified Presentation: 04/05 21:04 Presenting complaint: Patient states: I have been having chest pain on an off since my jb4 last heart attack for about a year. Tonight has been the worst. I feel SOB and nauseous. 21:04 Transition of care: patient was not received from another setting of care. Onset of jb4 symptoms was April 05, 2019. Risk Assessment: Do you want to hurt yourself or someone else? Patient reports no desire to harm self or others. Initial Sepsis Screen: Does the patient meet any 2 criteria? No. Patient's initial sepsis screen is negative. Does the patient have a suspected source of infection? No. Patient's initial sepsis screen is negative. Care prior to arrival: None. 21:04 Method Of Arrival: Wheelchair jb4 21:04 Acuity: DANIEL 3 jb4 Historical: - Allergies: 21:04 Sulfa (Sulfonamide Antibiotics); jb4 - Home Meds: 21:04 Metoprolol Tartrate Oral [Active]; Aspirin Oral [Active]; jb4 - PMHx: 21:04 Back pain; Hypertension; [place] 2017; Myocardial infarction; jb4 - PSHx: 21:04 heart cath; Tonsillectomy; soft pallet removal; uvila removal; left sholder; jb4 - Immunization history:: Adult Immunizations up to date. - Coronavirus screen:: The patient has NOT traveled to [place] in the past 14 days. Proceed with normal triage process as indicated. The patient has NOT had contact with known/suspected case of Coronavirus? Proceed with normal triage procedures. - Social history:: Smoking status: Patient denies any tobacco usage or history of. Patient uses alcohol, weekly. Patient/guardian denies using street drugs. - Ebola Screening: : No symptoms or risks identified at this time. Screenin/16 00:40 Abuse screen: Denies threats or abuse. Denies injuries from another. Nutritional lp1 screening: No deficits noted. Tuberculosis screening: No symptoms or risk factors identified. Fall Risk None identified. Assessment: 04/05 21:04 General: Appears in no apparent distress. uncomfortable, Behavior is cooperative, jb4 anxious. Pain: Complains of pain in chest Pain does not radiate. Pain currently is 5 out of 10 on a pain scale. Quality of pain is described as sharp, stabbing, Pain began 1 year ago Is intermittent. Neuro: Level of Consciousness is awake, alert, obeys commands, Oriented to person, place, time, situation. Cardiovascular: Patient's skin is warm and dry. Respiratory: Airway is patent Respiratory effort is even, unlabored, Respiratory pattern is regular, symmetrical. GI: Reports nausea. : No signs and/or symptoms were reported regarding the genitourinary system. EENT: No signs and/or symptoms were reported regarding the EENT system. Derm: Skin is intact, Skin is pink, warm \T\ dry. Musculoskeletal: Circulation, motion, and sensation intact. Range of motion: intact in all extremities. 22:17 Reassessment: Patient appears in no apparent distress at this time. Patient and/or jb4 family updated on plan of care and expected duration. Pain level reassessed. Patient is alert, oriented x 3, equal unlabored respirations, skin warm/dry/pink. 04/06 00:15 Reassessment: Provider at bedside to discuss results with patient and family. lp1 00:40 Reassessment: Patient appears in no apparent distress at this time. Patient is alert, lp1 oriented x 3, equal unlabored respirations, skin warm/dry/pink. Patient states feeling better. Vital Signs: 04/05 21:10 BP 177 / 101 LA (auto/lg); Pulse 85; Resp 16; Temp 98.1(O); Pulse Ox 97% on R/A; Weight jp3 92.53 kg (R); Height 5 ft. 9 in. (175.26 cm) (R); Pain 5/10; 21:37 BP 150 / 75 LA (auto/lg); Pulse 73; Pulse Ox 97% on R/A; jp3 21:45 BP 136 / 67; Pulse 71; Resp 16; Pulse Ox 95% on R/A; jb4 22:56 BP 121 / 68 LA (auto/lg); Pulse 69; Resp 16 S; Pulse Ox 96% on R/A; jp3 23:30 BP 125 / 70; Pulse 70; Resp 18; Pulse Ox 96% on R/A; lp1 04/06 00:40 BP 117 / 70; Pulse 73; Resp 18; Pulse Ox 97% on R/A; lp1 04/05 21:10 Body Mass Index 30.13 (92.53 kg, 175.26 cm) 3 ED Course: 04/05 21:04 Patient arrived in ED. es 21:04 Mohan Weiner MD is Private Physician. es 21:04 Arm band placed on right wrist. jb4 21:05 Madhu Bonilla, RN is Primary Nurse. jb4 21:06 [facility] snw 21:06 Romain Mckenzie MD is Attending Physician. snw 21:10 Patient maintains SpO2 saturation greater than 95% on room air. jp3 21:10 Safety checks: Family/friend present: yes. Family/friends encouraged to stay with 3 patient. Patient has correct armband on for positive identification. Placed in gown. Bed in low position. Call light in reach. Side rails up X 1. Side rails up X2. Warm blanket given. Pillow given. Verbal reassurance given. monitoring tech on. Pulse ox on. NIBP on. 21:15 EKG done, by ED staff, reviewed by Reina IQBAL. jp3 21:27 Initial lab(s) drawn, by wi, sent to lab. Inserted saline lock: 20 gauge in right 3 antecubital area, using aseptic technique. Blood collected. 21:41 Triage completed. jb4 22:29 CT completed. Patient tolerated procedure well. Patient moved back from CT. 04/06 00:14 Christopher Phillips MD is Referral Physician. snw 00:40 No provider procedures requiring assistance completed. IV discontinued, No lp1 redness/swelling at site. Pressure dressing applied. Administered Medications: 04/05 21:52 Drug: Ativan 1 mg Route: IVP; Site: right antecubital; jb4 21:53 Drug: NS 0.9% 1000 ml Route: IV; Rate: 125 ml/hr; Site: right antecubital; jb4 04/06 00:40 Follow up: IV Status: IV converted to saline lock lp1 04/05 21:53 Not Given (Physician Discretion): Metoprolol 5 mg IVP every 5 minutes; Hold for SBP < jb4 100 or HR < 60. x3 04/06 00:47 Drug: Simethicone 240 mg Route: PO; lp1 00:48 Follow up: Response: Medication administered at discharge. lp1 Outcome: 00:14 Discharge ordered by . snw 00:40 Discharged to home ambulatory, with significant other. lp1 00:40 Condition: good 00:40 Discharge instructions given to patient, Instructed on discharge instructions, follow up and referral plans. Demonstrated understanding of instructions, follow-up care. 00:45 Patient left the ED. lp1 Signatures: Reina Aviles, MINER PLACER-C MINER PLACER-Csnw Dulce Barragan Betty bq Pena, Laura, RN RN lp1 Madhu Bonilla, CAPO RN jb4 Kishan Luke jp3 Corrections: (The following items were deleted from the chart) 01:03 01:02 Patient left the ED. lp1 lp1
--- NOTE | 2019-04-06 00:16 | EDPHYS ---
Physician Documentation [facility] Name: Anthony Bailey Age: 58 yrs Sex: Male : 1960 Arrival Date: 04/05/2019 Time: 21:04 Bed 5 Private MD: Mohan Weiner E ED Physician Romain Mckenzie HPI: 04/05 21:50 This 58 yrs old Male presents to ER via Wheelchair with complaints of Chest snw Pain. 21:50 Onset: The symptoms/episode began/occurred acutely, waxing and waning, pt states pain snw started today and has been persistent since 1200. Associated signs and symptoms: Pertinent positives: palpitations. The patient has experienced similar episodes in the past. The patient has not recently seen a physician. last cardiac cath per Dr. Phillips, no blockages per pt report. Historical: - Allergies: 21:04 Sulfa (Sulfonamide Antibiotics); jb4 - Home Meds: 21:04 Metoprolol Tartrate Oral [Active]; Aspirin Oral [Active]; jb4 - PMHx: 21:04 Back pain; Hypertension; [place] 2017; Myocardial infarction; jb4 - PSHx: 21:04 heart cath; Tonsillectomy; soft pallet removal; uvila removal; left sholder; jb4 - Immunization history:: Adult Immunizations up to date. - Coronavirus screen:: The patient has NOT traveled to [place] in the past 14 days. Proceed with normal triage process as indicated. The patient has NOT had contact with known/suspected case of Coronavirus? Proceed with normal triage procedures. - Social history:: Smoking status: Patient denies any tobacco usage or history of. Patient uses alcohol, weekly. Patient/guardian denies using street drugs. - Ebola Screening: : No symptoms or risks identified at this time. ROS: 21:46 Constitutional: Negative for fever, chills, and weight loss, Eyes: Negative for injury, snw pain, redness, and discharge, ENT: Negative for injury, pain, and discharge, Neck: Negative for injury, pain, and swelling, Cardiovascular: Positive for chest pain, palpitations, and nausea, no edema, Respiratory: Negative for shortness of breath, cough, wheezing, and pleuritic chest pain, Abdomen/GI: Negative for abdominal pain, nausea, vomiting, diarrhea, and constipation, Back: Negative for injury and pain, : Negative for injury, bleeding, discharge, and swelling, MS/Extremity: Negative for injury and deformity, Skin: Negative for injury, rash, and discoloration, Neuro: Negative for headache, weakness, numbness, tingling, and seizure, Psych: Negative for depression, anxiety, suicide ideation, homicidal ideation, and hallucinations. Exam: 21:15 ECG was reviewed by the Attending Physician. snw 21:45 Constitutional: This is a well developed, well nourished patient who is awake, alert, snw and in no acute distress. Head/Face: Normocephalic, atraumatic. Eyes: Pupils equal round and reactive to light, extra-ocular motions intact. Lids and lashes normal. Conjunctiva and sclera are non-icteric and not injected. Cornea within normal limits. Periorbital areas with no swelling, redness, or edema. ENT: Nares patent. No nasal discharge, no septal abnormalities noted. Tympanic membranes are normal and external auditory canals are clear. Oropharynx with no redness, swelling, or masses, exudates, or evidence of obstruction, uvula midline. Mucous membranes moist. Neck: Trachea midline, no thyromegaly or masses palpated, and no cervical lymphadenopathy. Supple, full range of motion without nuchal rigidity, or vertebral point tenderness. No Meningismus. Chest/axilla: Normal chest wall appearance and motion. Nontender with no deformity. No lesions are appreciated. Cardiovascular: Regular rate and rhythm with a normal S1 and S2. No gallops, murmurs, or rubs. Normal PMI, no JVD. No pulse deficits. Respiratory: Lungs have equal breath sounds bilaterally, clear to auscultation and percussion. No rales, rhonchi or wheezes noted. No increased work of breathing, no retractions or nasal flaring. Abdomen/GI: Soft, non-tender, with normal bowel sounds. No distension or tympany. No guarding or rebound. No evidence of tenderness throughout. Back: No spinal tenderness. No costovertebral tenderness. Full range of motion. Skin: Warm, dry with normal turgor. Normal color with no rashes, no lesions, and no evidence of cellulitis. MS/ Extremity: Pulses equal, no cyanosis. Neurovascular intact. Full, normal range of motion. Neuro: Awake and alert, GCS 15, oriented to person, place, time, and situation. Cranial nerves II-XII grossly intact. Motor strength 5/5 in all extremities. Sensory grossly intact. Cerebellar exam normal. Normal gait. Psych: Awake, alert, with orientation to person, place and time. Behavior, mood, and affect are within normal limits. Vital Signs: 21:10 BP 177 / 101 LA (auto/lg); Pulse 85; Resp 16; Temp 98.1(O); Pulse Ox 97% on R/A; Weight jp3 92.53 kg (R); Height 5 ft. 9 in. (175.26 cm) (R); Pain 5/10; 21:37 BP 150 / 75 LA (auto/lg); Pulse 73; Pulse Ox 97% on R/A; jp3 21:45 BP 136 / 67; Pulse 71; Resp 16; Pulse Ox 95% on R/A; jb4 22:56 BP 121 / 68 LA (auto/lg); Pulse 69; Resp 16 S; Pulse Ox 96% on R/A; jp3 23:30 BP 125 / 70; Pulse 70; Resp 18; Pulse Ox 96% on R/A; lp1 04/06 00:40 BP 117 / 70; Pulse 73; Resp 18; Pulse Ox 97% on R/A; lp1 04/05 21:10 Body Mass Index 30.13 (92.53 kg, 175.26 cm) jp3 MDM: 04/05 21:07 Patient medically screened. snw 21:48 Data reviewed: vital signs, nurses notes. Data interpreted: Pulse oximetry: on room air snw is 97 %. Interpretation: normal. Counseling: I had a detailed discussion with the patient and/or guardian regarding: the historical points, exam findings, and any diagnostic results supporting the discharge/admit diagnosis, the presence of at least one elevated blood pressure reading (>120/80) during this emergency department visit, lab results. 04/05 21:06 Order name: Basic Metabolic Panel snw 04/05 21:06 Order name: CBC with Diff snw 04/05 21:06 Order name: LFT's snw 04/05 21:06 Order name: Magnesium snw 04/05 21:06 Order name: NT PRO-BNP snw 04/05 21:06 Order name: PT-INR snw 04/05 21:06 Order name: Troponin (emerg Dept Use Only) snw 04/05 21:58 Order name: CBC with Automated Diff; Complete Time: 22:00 EDMS 04/05 21:58 Order name: Protime (+INR); Complete Time: 22:00 EDMS 04/05 22:05 Order name: Basic Metabolic Panel; Complete Time: 22:13 EDMS 04/05 22:05 Order name: Liver (Hepatic) Function; Complete Time: 22:13 EDMS 04/05 22:05 Order name: Troponin I; Complete Time: 22:13 EDMS 04/05 22:05 Order name: NT PRO-BNP; Complete Time: 22:13 EDMS 04/05 22:05 Order name: Magnesium; Complete Time: 22:13 EDMS 04/05 21:06 Order name: XRAY Chest (1 view) w 04/05 21:06 Order name: EKG; Complete Time: 21:43 snw 04/05 21:06 Order name: Cardiac monitoring; Complete Time: 21:18 snw 04/05 21:06 Order name: EKG - Nurse/Tech; Complete Time: 21:18 snw 04/05 21:06 Order name: IV Saline Lock; Complete Time: 21:33 snw 04/05 21:06 Order name: Labs collected and sent; Complete Time: 21:33 snw 04/05 21:06 Order name: O2 Per Protocol; Complete Time: 21:18 snw 04/05 21:06 Order name: O2 Sat Monitoring; Complete Time: 21:18 snw 04/05 21:13 Order name: CT Dissection w/wo Con snw EC:15 Rate is 76 beats/min. Rhythm is regular. QRS [place] is Normal. DC interval is normal. QRS snw interval is normal. QT interval is normal. T waves are Inverted in leads III, aVR. Clinical impression: NSR w/ Non-specific ST/T Changes. Administered Medications: 21:52 Drug: Ativan 1 mg Route: IVP; Site: right antecubital; jb4 21:53 Drug: NS 0.9% 1000 ml Route: IV; Rate: 125 ml/hr; Site: right antecubital; jb4 04/06 00:40 Follow up: IV Status: IV converted to saline lock lp1 04/05 21:53 Not Given (Physician Discretion): Metoprolol 5 mg IVP every 5 minutes; Hold for SBP < jb4 100 or HR < 60. x3 04/06 00:47 Drug: Simethicone 240 mg Route: PO; lp1 00:48 Follow up: Response: Medication administered at discharge. lp1 Disposition: 01:07 Co-signature as Attending Physician, Romain Mckenzie MD I agree with the assessment and kdr plan of care. Disposition: 04/06/19 00:14 Discharged to Home. Impression: Chest pain, unspecified. - Condition is Stable. - Discharge Instructions: Nonspecific Chest Pain, Gastroesophageal Reflux Disease, Adult, Hypertension, Intestinal Gas and Gas Pains, Pediatric, Aspirin and Your Heart. - Work release form, Medication Reconciliation Form, Thank You Letter, Antibiotic Education, Prescription Opioid Use form. - Follow up: Private Physician; When: 2 - 3 days; Reason: Recheck today's complaints, Continuance of care, Re-evaluation by your physician. Follow up: Emergency Department; When: As needed; Reason: Worsening of condition. Follow up: Christopher Phillips MD; When: 1 week; Reason: Recheck today's complaints, Continuance of care. Signatures: Dispatcher [employer] EDMN Roamin Mckenzie MD MD [facility] Reina Aviles, YOUTH MANAGER-C YOUTH MANAGER-Csnw Diya Fernández, CAPO RN lp1 Madhu Bonilla RN RN jb4 Corrections: (The following items were deleted from the chart) 01:02 00:14 04/06/2019 00:14 Discharged to Home. Impression: Chest pain, unspecified. lp1 Condition is Stable. Forms are Medication Reconciliation Form, Thank You Letter, Antibiotic Education, Prescription Opioid Use. Follow up: Private Physician; When: 2 - 3 days; Reason: Recheck today's complaints, Continuance of care, Re-evaluation by your physician. Follow up: Emergency Department; When: As needed; Reason: Worsening of condition. Follow up: Christopher Phillips; When: 1 week; Reason: Recheck today's complaints, Continuance of care. snw
[2019-04-06] MEDS ORDERED: SIMETHICONE 80 MG TAB ONE (00:39)
[2019-04-06 03:07] VITALS: TEMP 98.1
[2019-04-06 03:27] VITALS: BP 121/68; O2SAT 96
--- NOTE | 2019-04-06 06:20 | EKG ---
Test Date: 2019-04-05 Test Time: 21:13:22 Mask Inspector: PINKY MEASUREMENT RESULTS: Intervals: Rate: 76 ME: 136 QRSD: 84 QT: 358 QTc: 402 [place]: P: 43 ME: 136 QRS: 53 T: 20 INTERPRETIVE STATEMENTS: Normal sinus rhythm Normal ECG Compared to ECG 01/20/2019 21:07:41 No significant changes Electronically Signed On 04-06-19 06:19:56 MILK DRIVER by Christopher Phillips
--- NOTE | 2019-04-06 08:40 | RAD REPORT ---
EXAM DESCRIPTION: RAD - Chest Single View - 04/05/2019 10:09 pm CLINICAL HISTORY: CHEST PAIN COMPARISON: Chest Single View dated 01/20/2019; Chest Single View dated 12/20/2018 TECHNIQUE: AP portable chest image was obtained 04/05/2019 10:09 pm . FINDINGS: Lungs are clear. Heart and vasculature are normal. No measurable pleural effusion and no p neumothorax. No acute bony abnormality seen. No acute aortic findings suspected. IMPRESSION: No acute cardiopulmonary process.
--- NOTE | 2019-04-07 11:28 | RAD REPORT ---
EXAM DESCRIPTION: CT - Angio Aorta For Dissection - 04/06/2019 2:35 am CLINICAL HISTORY: The patient is 58 years old and is Male; chest pain TECHNIQUE: Axial computed tomographic angiography images of the chest, abdomen and pelvis with intra venous contrast. Sagittal and coronal reformatted images were created and reviewed. This CT exam was performed using one or more of the following dose reduction techniques: automated exposure cont rol, adjustment of the mA and/or kV according to patient size, and/or use of iterative reconstruction technique. MIP reconstructed images were created and reviewed. COMPARISON: No relevant prior studies available. FINDINGS: VASCULATURE: AORTA: No acute findings. No aortic aneurysm. No dissection. PULMONARY ARTERIES: Unremarkable as visualized. No pulmonary embolism is identified. GREAT VESSELS OF AORTIC ARCH: No acute findings. No dissection. No arterial occlusion or sig nificant stenosis. CELIAC TRUNK AND MESENTERIC ARTERIES: No acute findings. No occlusion or significant stenosis. RENAL ARTERIES: No acute findings. No occlusion or significant stenosis. ILIAC ARTERIES: No acute findings. No occlusion or significant stenosis. CHEST: LUNGS: Unremarkable. No mass. No consolidation. PLEURAL SPACE: Unremarkable. No significant effusion. No pneumothorax. HEART: Unremarkable. No cardiomegaly. No significant pericardial effusion. ABDOMEN: LIVER: Unremarkable. No mass. GALLBLADDER AND BILE DUCTS: Unremarkable. No calcified stones. No ductal dilation. PANCREAS: Unremarkable. No ductal dilation. No mass. SPLEEN: Unremarkable. No splenomegaly. ADRENALS: Unremarkable. No mass. KIDNEYS AND URETERS: Unremarkable. No hydronephrosis. No solid mass. STOMACH AND BOWEL: The stomach is well distended with food contents. The small bowel is relative ly normal in caliber. A moderate amount stool is present throughout colon. There is no mucosal thicke kayleigh or evidence of bowel obstruction. PELVIS: APPENDIX: The appendix is normal in caliber without surrounding inflammation. BLADDER: Unremarkable. No mass. REPRODUCTIVE: Unremarkable as visualized. CHEST, ABDOMEN and PELVIS: INTRAPERITONEAL SPACE: Unremarkable. No significant fluid collection. No free air. BONES/JOINTS: Multilevel degenerative change of the spine is present. No acute fracture. No dislocation. SOFT TISSUES: There are small bilateral fat containing inguinal hernias. LYMPH NODES: Unremarkable. No enlarged lymph nodes. IMPRESSION: 1. No evidence of aortic aneurysm or dissection. 2. No acute findings on this contrasted CT of the chest, abdomen, and pelvis to explain the patient 's symptoms. Electronically signed by: Nupur Zelaya MD 04/05/2019 11:15 PM WATER SERVICE DISPATCHER Due to temporary technical issues with the PACS/Fluency reporting system, reports are being signed by the in house radiologist as a courtesy to ensure prompt reporting. The interpreting radiologist is f ully responsible for the content of the report.
== END 2019-04-06 01:02 | disposition home or self-care (01) ==
LOC: ER 21:02
DX: R07.9 Chest pain, unspecified (principal); R00.2 Palpitations; I10 Essential (primary) hypertension; Z88.2 Allergy status to sulfonamides; Z79.82 Long term (current) use of aspirin
CPT/HCPCS: 96361; 93005; 85025; 80048; 36415; 83735; 85610; 80076; 84484; 83880; 71275; 74175; 71045; 96374; 99285; Q9967; J7030

== ENCOUNTER 2021-06-16 16:37 | Observation (INO) | payer BC ==
--- OUTSIDE RECORDS SUMMARY | 2021-06-16 16:40 | XMS REPORT | Continuity of Care Document ---
:1960 Author Organization [facility] t Address [address] [place] [address] Care Team Providers Name Role Phone Des Putnam Attending Clinician Unavailable ROSE Attending Clinician Unavailable SHAWN Attending Clinician Unavailable SANTA Attending Clinician Unavailable Sung Branham Attending Clinician Unavailable Payers Payer Name Policy Type Policy Number Effective Date Expiration Date S ource Problems This patient has no known problems. Allergies, Adverse Reactions, Alerts Allergy Allergy Status Severity Reaction(s) Onset Inactive Treating Comm ents Source Name Type Date Date Clinician Sulfa DA Active [place] [facility] ([facility]ulf[facility] 7[facility]24 [place] [facility] [place] Active [place] NAUSEA 2018-0 [facility] (Sulfona 7-24 [place] [facility] 00:[facility]: [facility] Antibiot 00 dic ics[facility] Sulfa DA Active [place] 0 [facility] ([facility]ulfona 6-26 [place] [facility] 00:[facility]: [facility]ope Antibiot 00 dic ics) [facility] Sulfa DA Active [place] 0 [facility] (Sulfona 3-15 [place] [facility] 00:[facility]: [facility]ope Antibiot 00 dic ics) Hospita l Medications Ordered Filled Start Stop Current Ordering Indication Dosage Frequency Signature Comments Components Source Medication Medication Date Date Medication? Clinician (SIG) Name Name Metoprolol Metoprolol Yes Adolfo [address] [facility] Succinate 3-04 [place] [facility] Tylenol # 3 Tylenol # 3 Yes Adolfo one tab [facility] Procedures This patient has no known procedures. Encounters Start End Encounter Admission Attending Care Care Encounter Source Date/Time Date/Time Type Type Clinicians Facility Department ID 2021-03-16 [place] [id number] [facility] 12:48:39 Adolfo [id number] [facility] 2021-03-16 Out[place], [place] [id number] [facility] [address] 12:40:35 [facility]olfo [id number] [facility] 2021-03-16 Out[place], [place] [id number] [facility] [address] 12:39:42 Adolfo [id number] [facility] 2021-03-16 Out[place], [place] [id number] [facility] 12:36:30 Adolfo [id number] [facility] 2021-03-16 Out[place], [place] [id number] [facility] [address] 12:02:57 Adolfo [id number] [facility] 2021-03-16 Out[place], [place] [id number] 11:59:41 Adolfo [id number] [facility] 2021-03-16 Out[place], [place] [id number] [facility] [address] 11:11:34 Adolfo [id number] [facility] 2021-05-04 2021-05-04 Outpatient ROSE, [facility] [id number] [place] 00:00:00 00:00:00 RUDDY [facility] 2021-05-03 2021-05-03 Outpatient [facility] [id number] [facility] 00:00:00 23:59:00 Tony Medicin e 2021-05-03 2021-05-03 Outpatient ROSE, [facility] [id number] [place] 00:00:00 00:00:00 RUDDY [facility] 2021-05-03 2021-05-03 Outpatient CARRUM, [facility] [id number] [place] 00:00:00 00:00:00 DERRELL [address] 2021-04-29 2021-04-29 Outpatient BCM [facility] [id number] [facility] 00:00:00 23:59:00 Colleg e of Medicin e 2021-04-29 2021-04-29 Outpatient ROSE, [facility] [id number] 119 [place] 00:00:00 00:00:00 RUDDY [address] 2021-04-01 2021-04-01 Outpatient BCM BCM [id number] [facility] 00:00:00 23:59:00 [facility] Medicin e 2021-04-01 2021-04-01 Outpatient ROSE, [facility] [id number] [place] 00:00:00 00:00:00 RUDDY [address] 2021-04-01 2021-04-01 Outpatient ROSE, [facility] [id number] [place] 00:00:00 00:00:00 RUDDY [address] 2020-07-01 2020-07-01 Outpatient [facility] [id number] [facility] 00:00:00 [facility]:00:00 [facility] 2020-06-03 2020-06-03 Outpatient SANTA, [facility] [id number] [place] 00:00:00 00:00:00 PANCHOISA [address] 2020-05-24 2020-05-24 Outpatient [facility] [id number] [facility] 2020-04-30 2020-04-30 Outpatient [facility] [id number] [facility] 2020-04-23 2020-04-23 Outpatient [facility] [id number] [facility] 2020-04-02 2020-04-02 Outpatient [facility] [id number] [facility] 2020-04-02 2020-04-02 Out[facility] [id number] [facility] 2020-01-05 2020-01-05 Outpatient [facility] [id number] [facility] 2020-01-01 2020-01-01 Outpatient [facility] [id number] [facility] 2020-01-01 2020-01-01 Outpatient [facility] [id number] [facility] 2019-12-29 2019-12-29 Outpatient [facility] [id number] [facility] 2019-12-17 2019-12-17 Out[facility] [id number] [facility] 2019-12-10 2019-12-10 Out[facility] [id number] 2019-10-21 2019-10-21 Outpatient KANDICE Branham [id number] [facility] 10:00:00 10:00:00 Robel [id number] [facility] 2019-09-25 2019-09-25 [facility] [id number] 10:30:00 10:30:00 t ViFlux - miiCard [facility] 2019-06-25 2019-06-25 [facility] [id number] 11:15:00 11:15:00 t ViFlux - miiCard [facility] Outpat[facility] Clinics 2019-04-23 2019-04-23 [facility] [id number] 13:15:00 13:15:00 t HYLT [employer] s - [employer]iiCard [facility] Results Test Description Test Time Test Comments Results Result Sourc e Comments - MRI UP JNT W/O 2019-10-21 Patient Name: CONT LT 10:43:00 ANTHONY PÉREZ Unit No: [id number] EXAMS: CPT CODE: [id number] MRI [place] JNT W/[place] [id number] MR of the left shoulder without contrast TECHNIQUE: Paracoronal, parasagittal and axial multisequence images obtained. COMPARISON: MR dated 07/11/2018 FINDINGS: Acromioclavicular joint: Moderate degenerative changes. Rotator cuff: Interval postoperative changes of anterior supraspinatus tendon repair demonstrated. No recurrent full-thickness tear is identified. The supraspinatus tendon is thickened and heterogeneous, consistent with tendinosis. Borderline teres minor muscle atrophy is present. Musculature is otherwise normal in size and signal intensity. Long head biceps tendon: Postoperative changes of biceps tenodesis without evidence of complication. Labrum: Circumferential labral tearing is again visualized with paralabral cyst formation posterior/inferiorly measuring 5 mm. Cartilage/ bone: Moderate glenoid cartilage degeneration has progressed with prominent subchondral edema inferiorly increased, measuring 8 mm transversely. No acute fracture. No suspicious osseous lesion. Other: No joint effusion present. IMPRESSION: 1. Interval postoperative changes of supraspinatus tendon repair. No recurrent full-thickness tear visualized. 2. Biceps tenodesis. 3. Progression in moderate glenoid cartilage degeneration, greatest inferiorly. at 1043 Reported and signed by: Anthony Montero M.D. CC: Robel Branham MD Technologist: BUCK CASTRO RT(R) Transcribed D/ (1043) t.[email or web address].[email or web address] NAME: ANTHONY PÉREZ [address] [facility] PHYS: EDWTH - Robel Branham : 1960 AGE: 59 SEX: M [place], [place] [address] LOC: Y.MRI PHONE #: [phone] EXAM DATE: 10/21/2019 STATUS: REG CLI FAX #: [phone] RAD #: D/C DT PAGE 1 Signed Report Patient Name: ANTHONY PÉREZ Unit No: [id number] EXAMS: CPT CODE: [id number] [place] JNT W/[place] [id number] <Continued> Orig Print D/T: S: 10/21/2019 (1046) [facility] NAME: ANTHONY PÉREZ [address] [facility] [address] PHYS: Robel Santos : 1960 AGE: 59 SEX: M [place], [place] [address] LOC: Y.MRI PHONE #: [phone] EXAM DATE: 10/21/2019 STATUS: REG CLI FAX #: [phone] RAD #: D/C DT PAGE 2 Signed Report BASIC METABOLIC PANEL 2018-08-14 12:05:00 Test Item Value Reference Range Interpretation Comme nts SODIUM (test code = NA) 138 mmol/L 136-145 N POTASSIUM (test code = K) 4.6 mmol/L 3.5-5.1 N CHLORIDE (test code = CL) 102.0 mmol/L 98-107 N CARBON DIOXIDE (test code = 27.9 mmol/L 21-32 N CO2) GLUCOSE (test code = GLU) 94 mg/dL 70-110 N BLOOD UREA NITROGEN (test code 17 mg/dL 7-18 N = BUN) GLOMERULAR FILTRATION RATE 71.0 >60 U nit of measure: (test code = GFR) mL/min/1.7 3 [id number] Range:Healthy A dults >90 mL/min/1.73 m2 For Chronic Kidney Disease: Stage II Mi ld Decrease in GFR 60-9 0 Stage III Moderate Decrease in GFR 30-59 Stage IV Severe Decrease in GFR 15-29 Stage V Kidney Failure <15 CREATININE (test code = CREAT) 1.07 mg/dL 0.55-1.30 N CALCIUM (test code = CA) 9.1 mg/dL 8.2-10.1 N HGB [id number] 11:40:00 Test Item Value Reference Range Interpretation Comments HEMOGLOBIN (test code = HGB) 14.9 g/dL 12-16 N HEMATOCRIT (test code = HCT) 42.7 % 37-47 N - MRI UP JNT W/O CONT [id number] 16:27:00 Patient Name: ANTHONY PÉREZ Unit No: [id number] EXAMS: CPT CODE: [id number] MRI [place] JNT W/[place] [address] MRI OF THE LEFT SHOULDER DIAGNOSIS: 1. Partial-thickne ss tearing of the supraspinatus tendon greatest along [...] a minimal amount of bursal fluid. Electronically S igned by Joey Ferrera MD on 07/11/2018 at 8877 Reported and signed by: Joey Ferrera MD CC: Robel Branham MD Technologist: Eleni Enciso(R) TranscribedD/ (8389) [facility] NAME: ANTHONY PÉREZ [address] [facility] PHYS: EDWTH - Robel BranhamSung : 1960 AGE: 57 SEX: M [place], [place] [address] LOC: Y.MRI PHONE #: [phone] EXAM DATE: 07/11/2018 STATUS: REG CLI FAX #: [phone] RAD #: D/C DT PAGE 1 Signed Report Patient Name: ANTHONY PÉREZ Unit No: [id number] EXAMS: CPT CODE: [id number] [place] JNT W/[place] [address] <Continued> Orig Print D/T: S: 07/11/2018 (1630) [facility] NAME: ANTHONY PÉREZ [address] [facility] PHYS: Robel Santos : 1960 AGE: 57 SEX: M [place], [place] [address] LOC: Y.MRI PHONE #: [phone] EXAM DATE: 07/11/2018 STATUS: REG CLI FAX #: [phone] RAD #: D/C DT PAGE 2 Signed Report
[2021-06-16 17:01] LABS: Absolute Lymphocytes (CBC) 1.1 K/uL (0.7-4.9); Hematocrit 42.6 % (39.6-49.0); Lymphocytes % 11.3 % (15.3-44.8); MPV 7.6 fL (7.6-11.3); RBC Red Blood Cell Count 4.93 M/uL (4.33-5.43)
[2021-06-16 17:10] LABS: Protime INR 1.03
[2021-06-16] MEDS ORDERED: MORPHINE 2 MG/ML SYR ONE ×2 (17:14)
[2021-06-16] MEDS ORDERED: ONDANSETRON 4 MG/2 ML VIAL ONE (17:14)
[2021-06-16] MEDS ORDERED: ASPIRIN 81 MG CHEWABLE TABLET ONE (17:23)
--- NOTE | 2021-06-16 17:24 | RAD REPORT ---
EXAM DESCRIPTION: RAD - Chest Single View - 06/16/2021 5:16 pm CLINICAL HISTORY: CHEST PAIN Chest pain. COMPARISON: Chest Single View dated 04/05/2019; Chest Single View dated 01/20/2019; Chest Single View dated 12/20/2018; Chest Single View dated 10/17/2018 FINDINGS: Portable technique limits examination quality. The lungs are grossly clear. The heart is normal in size. No displaced fractures. IMPRESSION: No acute intrathoracic process suspected.
[2021-06-16 18:40] LABS: Albumin 4.1 g/dL (3.4-5.0); Bilirubin Direct 0.2 mg/dL (0-0.2); Bilirubin Total 0.5 mg/dL (0.2-1.0); Magnesium 2.2 mg/dL (1.8-2.4); Potassium 4.3 mmol/L (3.5-5.1); Protein, Total 7.8 g/dL (6.4-8.2); Troponin High Sensitivity 11.1 pg/mL (<58.9)
--- NOTE | 2021-06-16 18:45 | ER ---
Nurse's Notes [facility] Name: Anthony Bailey Age: 60 yrs Sex: Male : 1960 Arrival Date: 06/16/2021 Time: 16:39 Bed 16 Private MD: Diagnosis: Chest pain, unspecified Presentation: 06/16 16:48 Chief complaint: Patient states: Chest pain began around 1330 today. C/O nausea. ld1 Coronavirus screen: At this time, the client does not indicate any symptoms associated with coronavirus-19. Ebola Screen: No symptoms or risks identified at this time. Initial Sepsis Screen: Does the patient meet any 2 criteria? No. Patient's initial sepsis screen is negative. Does the patient have a suspected source of infection? No. Patient's initial sepsis screen is negative. Risk Assessment: Do you want to hurt yourself or someone else? Patient reports no desire to harm self or others. Onset of symptoms was June 16, 2021. 16:48 Method Of Arrival: Ambulatory ld1 16:48 Acuity: DANIEL 3 ld1 Triage Assessment: 16:48 General: Appears in no apparent distress. comfortable, Behavior is calm, cooperative, ld1 appropriate for age. Pain: Complains of pain in chest Pain does not radiate. EENT: No signs and/or symptoms were reported regarding the EENT system. Neuro: Level of Consciousness is awake, alert, obeys commands, Oriented to person, place, time, situation. Cardiovascular: Capillary refill < 3 seconds Patient's skin is warm and dry. Rhythm is regular. Respiratory: Airway is patent Respiratory effort is even, unlabored, Respiratory pattern is regular, symmetrical. Historical: - Allergies: 16:40 Sulfa (Sulfonamide Antibiotics); ll1 - Home Meds: 17:58 Aspirin Oral [Active]; Metoprolol Tartrate Oral [Active]; jg9 - PMHx: 16:40 Back pain; Hypertension; [place] 2017; Myocardial infarction; ll1 - Immunization history:: Adult Immunizations up to date, Client reports receiving the 2nd dose of the Covid vaccine. - Social history:: Smoking status: Patient denies any tobacco usage or history of. Patient/guardian denies using alcohol, street drugs, The patient lives with family. - Family history:: not pertinent. Screenin:58 Abuse screen: Denies threats or abuse. Denies injuries from another. Nutritional jg9 screening: No deficits noted. Tuberculosis screening: No symptoms or risk factors identified. Fall Risk None identified. Assessment: 17:30 Reassessment: Patient and/or family updated on plan of care and expected duration. Pain jg9 level reassessed. Patient is alert, oriented x 3, equal unlabored respirations, skin warm/dry/pink. Patient states symptoms have not improved. Pain: Complains of pain in chest-mid sternal Pain currently is 5 out of 10 on a pain scale. Pain began suddenly. 18:22 Reassessment: Patient and/or family updated on plan of care and expected duration. Pain jg9 level reassessed. Patient is alert, oriented x 3, equal unlabored respirations, skin warm/dry/pink. Patient states feeling better. Patient states symptoms have improved. 19:15 General: Appears in no apparent distress. comfortable, Behavior is calm, cooperative. al4 Pain: Denies pain. Neuro: Level of Consciousness is awake, alert, obeys commands, Oriented to person, place, time, situation. Cardiovascular: Patient's skin is warm and dry. Rhythm is sinus rhythm. Respiratory: Airway is patent Respiratory effort is unlabored, Respiratory pattern is regular. 20:15 Reassessment: Patient appears in no apparent distress at this time. Patient is alert, al4 oriented x 3, equal unlabored respirations, skin warm/dry/pink. 22:02 Reassessment: Patient ate dinner while RN was out of room. Receiving RN Maxine aware al4 that patient ate dinner, states that patient has regular diet ordered. 22:05 Reassessment: Patient appears in no apparent distress at this time. Patient is alert, al4 oriented x 3, equal unlabored respirations, skin warm/dry/pink. Patient denies pain at this time. 23:05 Reassessment: Patient appears in no apparent distress at this time. Patient being al4 transferred upstairs with DARLENE Pryor. Patient denies pain at this time. Vital Signs: 16:48 BP 180 / 101; Pulse 95; Resp 18; Temp 97.9(TE); Pulse Ox 97% on R/A; Weight 93.89 kg; ld1 Height 5 ft. 7 in. (170.18 cm); Pain 7/10; 17:00 BP 163 / 83; Pulse 81; Resp 15 S; Pulse Ox 98% on R/A; Pain 5/10; jg9 17:45 BP 133 / 79; Pulse 72; Resp 11 S; Pulse Ox 98% ; jg9 18:15 BP 138 / 99; Pulse 77; Resp 16; Pulse Ox 100% ; Pain 3/10; jg9 19:15 BP 152 / 83; Pulse 77; Resp 14; Pulse Ox 99% on R/A; Pain 0/10; al4 20:15 BP 133 / 70; Pulse 72; Resp 12; Pulse Ox 98% ; Pain 0/10; al4 21:57 BP 115 / 67; Pulse 73; Resp 14; Pulse Ox 98% on R/A; Pain 0/10; al4 22:45 BP 109 / 63; Pulse 71; Resp 12; Pulse Ox 97% on R/A; Pain 0/10; al4 16:48 Body Mass Index 32.42 (93.89 kg, 170.18 cm) ld1 ED Course: 16:39 Patient arrived in ED. mr 16:39 Moo Rajan MD is Attending Physician. ma2 16:39 Arm band placed on Patient placed in an exam room, on a stretcher. ll1 16:47 Inserted saline lock: 20 gauge in right antecubital area, using aseptic technique. jg9 Blood collected. 16:49 Triage completed. ld1 17:04 Brenda Prince, CAPO is Primary Nurse. jg9 17:17 XRAY Chest (1 view) In Process Unspecified. EDMS 17:58 Patient has correct armband on for positive identification. Bed in low position. Call jg9 light in reach. Side rails up X 1. monitor car operator on. 17:58 Patient maintains SpO2 saturation greater than 95% on room air. jg9 18:24 No apparent distress. Resting quietly. Awaiting lab results, Awaiting radiology jg9 results. Awaiting disposition. 18:53 Colby Allred MD is Hospitalizing Provider. ma2 22:02 No provider procedures requiring assistance completed. Patient admitted, IV remains in al4 place. Administered Medications: 17:15 Drug: morphine 4 mg Route: IVP; Site: right antecubital; jg9 17:57 Follow up: Response: No adverse reaction; Pain is unchanged, physician notified jg9 17:15 Drug: Zofran (Ondansetron) 4 mg Route: IVP; Site: right antecubital; jg9 17:57 Follow up: Response: No adverse reaction jg9 17:16 Drug: Aspirin Chewable Tablet 324 mg Route: PO; jg9 17:57 Follow up: Response: No adverse reaction jg9 Outcome: 18:53 Decision to Hospitalize by Provider. ma2 22:02 Admitted to Med/surg room 405, Report called to CAPO Goodman al4 22:02 Condition: stable 22:02 Discharge instructions given to patient, Instructed on the need for admit, Demonstrated understanding of instructions. 23:07 Patient left the ED. al4 Signatures: Dispatcher [employer] DEON RolandAimee mr JulitomatthewMoo MD MD ma2 Mickey Martinez RN RN ll1 Mary Alexis RN RN ld1 Marcelino Wolf4 Brenda Prince RN RN jg9
--- NOTE | 2021-06-16 18:46 | EDPHYS ---
Physician Documentation [facility] Name: Anthony Bailey Age: 60 yrs Sex: Male : 1960 Arrival Date: 06/16/2021 Time: 16:39 Bed 16 Private MD: ED Physician Moo Rajan HPI: 06/16 17:04 This 60 yrs old Male presents to ER via Ambulatory with complaints of Chest Pain. ma2 17:04 60-year-old male, with no prior health issues although recorded on chart that he might ma2 have an OK, however patient states he had a cath in 2018 that was unremarkable and since then he has not been having any health issues he denies any medical issues non-smoker. Presents with chest pain started an hour ago substernal no radiation.. Historical: - Allergies: 16:40 Sulfa (Sulfonamide Antibiotics); ll1 - Home Meds: 17:58 Aspirin Oral [Active]; Metoprolol Tartrate Oral [Active]; jg9 - PMHx: 16:40 Back pain; Hypertension; [place] 2017; Myocardial infarction; ll1 - Immunization history:: Adult Immunizations up to date, Client reports receiving the 2nd dose of the Covid vaccine. - Social history:: Smoking status: Patient denies any tobacco usage or history of. Patient/guardian denies using alcohol, street drugs, The patient lives with family. - Family history:: not pertinent. ROS: 17:04 Constitutional: Negative for fever, chills, and weight loss. ma2 17:04 All other systems are negative. Exam: 17:04 Constitutional: This is a well developed, well nourished patient who is awake, alert, ma2 and in no acute distress. Eyes: Pupils equal round and reactive to light, extra-ocular motions intact. Lids and lashes normal. Conjunctiva and sclera are non-icteric and not injected. Cornea within normal limits. Periorbital areas with no swelling, redness, or edema. ENT: Nares patent. No nasal discharge, no septal abnormalities noted. Tympanic membranes are normal and external auditory canals are clear. Oropharynx with no redness, swelling, or masses, exudates, or evidence of obstruction, uvula midline. Mucous membranes moist. Neck: Trachea midline, no thyromegaly or masses palpated, and no cervical lymphadenopathy. Supple, full range of motion without nuchal rigidity, or vertebral point tenderness. No Meningismus. Chest/axilla: Normal chest wall appearance and motion. Nontender with no deformity. No lesions are appreciated. Cardiovascular: Regular rate and rhythm with a normal S1 and S2. No gallops, murmurs, or rubs. Normal PMI, no JVD. No pulse deficits. Respiratory: Lungs have equal breath sounds bilaterally, clear to auscultation and percussion. No rales, rhonchi or wheezes noted. No increased work of breathing, no retractions or nasal flaring. Abdomen/GI: Soft, non-tender, with normal bowel sounds. No distension or tympany. No guarding or rebound. No evidence of tenderness throughout. Vital Signs: 16:48 BP 180 / 101; Pulse 95; Resp 18; Temp 97.9(TE); Pulse Ox 97% on R/A; Weight 93.89 kg; ld1 Height 5 ft. 7 in. (170.18 cm); Pain 7/10; 17:00 BP 163 / 83; Pulse 81; Resp 15 S; Pulse Ox 98% on R/A; Pain 5/10; jg9 17:45 BP 133 / 79; Pulse 72; Resp 11 S; Pulse Ox 98% ; jg9 18:15 BP 138 / 99; Pulse 77; Resp 16; Pulse Ox 100% ; Pain 3/10; jg9 19:15 BP 152 / 83; Pulse 77; Resp 14; Pulse Ox 99% on R/A; Pain 0/10; al4 20:15 BP 133 / 70; Pulse 72; Resp 12; Pulse Ox 98% ; Pain 0/10; al4 21:57 BP 115 / 67; Pulse 73; Resp 14; Pulse Ox 98% on R/A; Pain 0/10; al4 22:45 BP 109 / 63; Pulse 71; Resp 12; Pulse Ox 97% on R/A; Pain 0/10; al4 16:48 Body Mass Index 32.42 (93.89 kg, 170.18 cm) ld1 MDM: 16:57 Patient medically screened. ma2 17:04 Differential diagnosis: abnormal EKG, acute myocardial infarction, acute pericarditis, ma2 gastroesophageal reflux disease (GERD). HEART Score: History: Moderately Suspicious (1), ECG: Normal (0), Age: > 45 and < 65 years (1), Risk Factors: No Risk Factors Known (0), Troponin: < or = 1 x Normal Limit (0), Total Score = 2. The patient was given aspirin in the Emergency Department. Data reviewed: vital signs, nurses notes, EMS record, assisted records. 18:39 ED course: x x patient has [place] score 2 heart score 3, trop is negative reportedly by arthur Rios from lab, is to be admitted for ACS rule out, I had a lengthy discussion with the patient I recommended admission to obs explained reasoning behind repeating heart enzymes and need to repeat every 4-6 hours at least 3 times to rule out ACS, however .. Patient states he would like to be discharged AMA and he understands all risks that include having OK, and patient said he is living with his with rafael keep an eye on him and call 911 if he gets chest pain. Either way he said he will his primary care doctor and completion engineer tomorrow. His completion engineer is Dr. Pleitez he has an office in [place], patient said he can walk into his office tomorrow on Sunday. Patient would like to be discharged AMA. 18:52 ED course: patient now charnged his mind and want to stay . [facility] 06/16 16:40 Order name: Basic Metabolic Panel [facility] 06/16 16:40 Order name: CBC with Diff; Complete Time: 18:16 [facility] 06/16 16:40 Order name: LFT's [facility] 06/16 16:40 Order name: Magnesium [facility] 06/16 16:40 Order name: NT PRO-BNP [facility] 06/16 16:40 Order name: PT-INR; Complete Time: 18:16 [facility] 06/16 16:40 Order name: Troponin HS [facility] 06/16 16:40 Order name: XRAY Chest (1 view); Complete Time: 18:16 [facility] 06/16 16:40 Order name: EKG; Complete Time: 16:40 [facility] 06/16 16:40 Order name: Cardiac monitoring; Complete Time: 16:47 [facility] 06/16 18:57 Order name: COVID-19/FLU A+B (Document "Date of Onset" if Symptomatic) [facility] 06/16 16:40 Order name: EKG - Nurse/Tech; Complete Time: 16:47 [facility] 06/16 16:40 Order name: IV Saline Lock; Complete Time: 16:47 [facility] 06/16 16:40 Order name: Labs collected and sent; Complete Time: 16:47 [facility] 06/16 16:40 Order name: O2 Per Protocol; Complete Time: 19:23 [facility] 06/16 16:40 Order name: O2 Sat Monitoring; Complete Time: 16:47 vt2 Administered Medications: 17:15 Drug: morphine 4 mg Route: IVP; Site: right antecubital; jg9 17:57 Follow up: Response: No adverse reaction; Pain is unchanged, physician notified jg9 17:15 Drug: Zofran (Ondansetron) 4 mg Route: IVP; Site: right antecubital; jg9 17:57 Follow up: Response: No adverse reaction jg9 17:16 Drug: Aspirin Chewable Tablet 324 mg Route: PO; jg9 17:57 Follow up: Response: No adverse reaction jg9 Disposition Summary: 06/16/21 18:53 Hospitalization Ordered Hospitalization Status: Observation vt2 Provider: Colby Allred [facility] Location: Telemetry/MedSurg (observation)(06/16/21 18:53) ma2 Condition: Stable(06/16/21 18:53) ma2 Problem: new(06/16/21 18:53) vt2 Symptoms: are unchanged(06/16/21 18:53) vt2 Bed/Room Type: Standard [facility] Room Assignment: 405(06/16/21 20:56) 1 Diagnosis - Chest pain, unspecified(06/16/21 18:53) ma2 Forms: - Medication Reconciliation Form ma2 - SBAR form vt2 Signatures: Dispatcher [employer] EDMS Moo Rajan MD MD ma2 Maxine Diehl RN RN eb1 Mickey Martinez RN RN ll1 Mary Alexis RN RN ld1 Brenda Prince RN RN jg9 Corrections: (The following items were deleted from the chart) 18:53 18:45 Home ma2 ma2 18:53 18:45 new ma2 ma2 18:53 18:45 are unchanged ma2 ma2 18:53 18:45 Stable ma2 ma2 18:53 18:45 Chest pain, unspecified ma2 ma2 20:56 18:53 ma2 eb1
--- NOTE | 2021-06-16 19:21 | P.HP ---
Certification for Inpatient Patient admitted to: Observation With expected LOS: <2 Midnights Patient will require the following post-hospital care: None Practitioner: I am a practitioner with admitting privileges, knowledge of patient current condition, hospital course, and medical plan of care. Services: Services provided to patient in accordance with Admission requirements found in Title 42 Section 412.3 of the Code of Federal Regulations Patient History Date of Service: 06/16/21 Reason for admission: Chest pain History of Present Illness: 60-year-old male with history of hypertension presents emergency department for chest pain. Pain began around 130 this p.m. 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 Patient denies similar episodes in the past had cardiac catheterization 2017 and stress test in 2019 which were reported to be normal. His initial troponin was negative chest x-ray unremarkable EKG without ST elevation. ED provider wishes to admit to observation for ACS rule out Allergies Sulfa (Sulfonamide Antibiotics) [Sulfa(Sulfonamide Antibiotics)] Allergy ( Intermediate, Verified 05/09/11 08:17) Nausea/Vomiting Home Medications: Gabapentin [Gralise] 600 mg PO TID 06/23/16 Aspirin [Aspirin EC 81 MG] 81 mg PO DAILY #90 tablet. 06/25/16 Atorvastatin Calcium [Lipitor] 80 mg PO BEDTIME #30 tab 06/25/16 Metoprolol Tartrate [Lopressor*] 25 mg PO BID 6AM 6PM #60 tab 06/25/16 Nitroglycerin [Nitrostat*] 0.4 mg SL UD PRN #30 tab 06/25/16 Prasugrel Hydrochloride [Effient*] 10 mg PO DAILY #30 tab 06/25/16 traMADol HCL [Ultram*] 50 mg PO TIDP PRN #30 tab 06/25/16 - Past Medical/Surgical History Diabetic: No -: HTN -: Back pain -: GERD -: Nephrolithiasis -: Obstructive sleep apnea -: Mild CAD -: Cyst removed from the L5 region -: Bilateral knee surgery -: UP3 -: Heart catheterization 2017 no stents Psychosocial/ Personal History: Lives at home with family - Family History Sister -: Heart disease - Social History Smoking Status: Never smoker Alcohol use: Yes CD- Drugs: No Caffeine use: Yes Place of Residence: Home Review of Systems 10-point ROS is otherwise unremarkable Cardiovascular: Chest Pain Physical Examination - Physical Exam General: Alert, In no apparent distress, Oriented x3 HEENT: Atraumatic, PERRLA, Mucous membr. moist/pink, EOMI, Sclerae nonicteric Neck: Supple, 2+ carotid pulse no bruit, No LAD, Without JVD or thyroid abnormality Respiratory: Clear to auscultation bilaterally, Normal air movement Cardiovascular: Regular rate/rhythm, Normal S1 S2 Gastrointestinal: Normal bowel sounds, No tenderness Musculoskeletal: No tenderness Integumentary: No rashes Neurological: Normal speech, Normal strength at 5/5 x4 extr, Normal tone, Normal affect Lymphatics: No axilla or inguinal lymphadenopathy - Studies Laboratory Data (last 24 hrs) 06/16/21 16:45: PT 11.3, INR 1.03 06/16/21 16:45: WBC 9.9, Hgb 14.7, Hct 42.6, Plt Count 223 06/16/21 16:45: Sodium 140, Potassium 4.3, BUN 18, Creatinine 1.17, Glucose 99, Magnesium 2.2, Total Bilirubin 0.5, AST 22, ALT 28, Alkaline Phosphatase 101 Assessment and Plan - Plan Assessment: Chest pain rule out ACS Hypertension GERD Plan: Chest pain rule out ACS: Trend troponins, monitor on telemetry, aspirin, statin, beta-adam therapy. As needed morphine, cardiology consult in place. Hypertension: Continue Metoprolol GERD: Daily Protonix DVT PPX:Lovenox Code status:Full Discharge Plan: Home Plan to discharge in: 24 Hours - Advance Directives Does patient have a Living Will: No Does patient have a Durable POA for Healthcare: No Critical Care: No Time Spent Managing Pts Care (In Minutes): 55
[2021-06-16 20:41] LABS: SARS-COV-2 RT PCR NEGATIVE (NEGATIVE)
[2021-06-16] MEDS ORDERED: ONDANSETRON 4 MG/2 ML VIAL IV PRN (22:29)
[2021-06-16] MEDS ORDERED: ATORVASTATIN 40 MG TAB PO SCH (22:29)
[2021-06-16] MEDS ORDERED: MORPHINE 2 MG/ML SYR IV PRN (22:29)
[2021-06-16] MEDS ORDERED: ACETAMINOPHEN 500 MG TAB PO PRN (22:29)
[2021-06-17 00:43] VITALS: BMI 31.8
[2021-06-17] MEDS ORDERED: HEPARIN/D5W 25,000 UNIT/500 ML BAG IV SCH (02:00)
[2021-06-17] MEDS ORDERED: METOPROLOL TAR 25 MG TAB PO SCH (06:00)
--- NOTE | 2021-06-17 06:55 | P.PN ---
Date of Service: 06/17/21
--- NOTE | 2021-06-17 07:44 | EKG ---
Test Date: 2021-06-16 Test Time: 16:45:58 Customer Experience Retail Clerk: KEVIN MEASUREMENT RESULTS: Intervals: Rate: 0 [place]: QRSD: 0 QT: 0 QTc: 0 [place]: P: [place]: QRS: 0 T: 0 INTERPRETIVE STATEMENTS: No QRS complexes found, no ECG analysis possible Compared to ECG 06/16/2021 16:45:20 Sinus rhythm no longer present Electronically Signed On 06-17-21 07:42:21 CDT by Michel Blake
--- NOTE | 2021-06-17 07:44 | EKG ---
Test Date: 2021-06-16 Test Time: 16:45:20 Bus Person: KEVIN MEASUREMENT RESULTS: Intervals: Rate: 90 OR: 144 QRSD: 76 QT: 340 QTc: 415 [place]: P: 43 OR: 144 QRS: 48 T: 42 INTERPRETIVE STATEMENTS: Normal sinus rhythm Normal ECG Compared to ECG 04/05/2019 21:13:22 No significant changes Electronically Signed On 06-17-21 07:42:22 CDT by Michel Blake
[2021-06-17] MEDS ORDERED: LIDOCAINE 1% 20 ML MDV ONE (07:56)
[2021-06-17] MEDS ORDERED: HEPA 1000U/500MLS 1,000 UNIT/500 ML BAG IV ONE (07:56)
[2021-06-17] MEDS ORDERED: MIDAZOLAM HCL 2 MG/2 ML INJ ONE ×3 (07:56→08:31)
[2021-06-17] MEDS ORDERED: FENTANYL CITR 100 MCG/2 ML ONE (07:56)
[2021-06-17] MEDS ORDERED: ATROPINE SULF 1 MG/10 ML SYR IV ONE (07:57)
[2021-06-17] MEDS ORDERED: NA CHLORIDE 0.9% 0 ML ONE (07:57)
[2021-06-17] MEDS ORDERED: NA CHLORIDE 0.9% 500 ML ONE (08:02)
[2021-06-17] MEDS ORDERED: ENOXAPARIN 40 MG/0.4 ML SQ SCH (09:00)
[2021-06-17] MEDS ORDERED: ASPIRIN EC 81 MG TAB PO SCH (09:00)
[2021-06-17 10:43] VITALS: O2SAT 99
[2021-06-17 10:59] LABS: Absolute Lymphocytes (CBC) 1.1 K/uL (0.7-4.9); Hematocrit 39.1 % (39.6-49.0); Lymphocytes % 17.7 % (15.3-44.8); RBC Red Blood Cell Count 4.51 M/uL (4.33-5.43)
[2021-06-17 11:27] VITALS: BP 112/63; TEMP 97.2
[2021-06-17 11:32] LABS: Albumin 3.4 g/dL (3.4-5.0); Bilirubin Total 0.7 mg/dL (0.2-1.0); Potassium 4.5 mmol/L (3.5-5.1); Protein, Total 6.5 g/dL (6.4-8.2)
[2021-06-17 11:37] LABS: Troponin High Sensitivity 1539.4 pg/mL (<58.9)
[2021-06-17] MEDS ORDERED: CLOPIDOGREL 75 MG TABLET PO ONE (12:11)
--- NOTE | 2021-06-17 20:04 | OP ---
Surgeon: Michel Blake MD Bench Lay Out Technician: Yoon Grijalva. Indications: Admitted today and seen today for non-STEMI. Description Of Procedure: Brought to the director of cath lab today as an inpatient, prepped and draped in a sla ndered sterile fashion, given Versed and fentanyl for sedation. A 6-Setswana sheath introduced in the right common femoral artery successfully using the Seldinger technique and 10 cc of Xylocaine. Angio graphy there was normal. Angio-Seal was used to close the case. Total conscious sedation was 30 min utes. Kerline catheter 6-Setswana left and right were used to cannulate the left main and right main r espectively. The left main was normal. He had about a 50% blockage in his OM1, which is a nondomina nt vessel. He had mild to moderate plaquing in the proximal LAD before the first septal and first di agonal. His RCA was large, dominant and free of disease. There were no complications. Blood Loss: 5 mL. Postoperative Diagnosis: Mild to moderate coronary artery disease. Plan: For medical therapy. Disposition: The patient will be at bedrest for 2 hours. He can go home after that. I will see him in the office myself or he will go back to see Dr. 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 He should definitely on a baby aspirin, statin, maybe even Plavix, at a low dose beta-adam. JANA/MILAGROS Voice ID: [id number] Report ID: [id number]
--- NOTE | 2021-06-17 21:24 | P.DS ---
Admission Date: 06/16/21 Discharge Date: 06/17/21 Disposition: ROUTINE DISCHARGE Reason for Admission: Chest pain Consultations: Cardiology - Dr. 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 Initial troponin was negative, EKG without ST eleveation, and CXR unremarkable. ED provider wishes to admit to observation for ACS rule out Hospital Course: Patient's 2nd troponin level increased significantly. Cardiology was consulted and patient underwent cardiac catheterization on 06/17. He was noted to have some mild coronary artery disease, with area along LAD with ~50% stenosis. No intervention was required/performed. Patient may have had a small thrombus or spasm. He was deemed stable for discharge home. Cardiology recommended aspirin, plavix for ~6 months, atorvastatin, and metopro lol. Patient's blood pressure was noted to be elevated on admission, and was within normal limits while taking medications. Follow up: PCP within 1 week Cardiology in ~2 weeks. Vital Signs/Physical Exam: Temp Pulse Resp BP Pulse Ox 97.2 F 60 18 112/63 98 06/17/21 11:27 06/17/21 11:27 06/17/21 11:27 06/17/21 11:27 06/17/21 11:27 General: Alert, In no apparent distress, Oriented x3 HEENT: Sclerae nonicteric Respiratory: Clear to auscultation bilaterally, Normal air movement Cardiovascular: No edema, Regular rate/rhythm Gastrointestinal: Soft and benign, Non-distended, No tenderness Musculoskeletal: No erythema, No tenderness Integumentary: No rashes, No significant lesion Neurological: Normal speech, Normal affect Laboratory Data at Discharge: WBC 6.4 K/uL (4.3-10.9) D 06/17/21 10:46 Hgb 13.2 g/dL (13.6-17.9) L 06/17/21 10:46 Hct 39.1 % (39.6-49.0) L 06/17/21 10:46 Plt Count 204 K/uL (152-406) 06/17/21 10:46 PT 11.3 SECONDS (9.5-12.5) 06/16/21 16:45 INR 1.03 06/16/21 16:45 APTT 29.9 SECONDS (24.3-36.9) 06/17/21 10:46 Sodium 140 mmol/L (136-145) 06/17/21 10:46 Potassium 4.5 mmol/L (3.5-5.1) 06/17/21 10:46 BUN 21 mg/dL (7-18) H 06/17/21 10:46 Creatinine 1.00 mg/dL (0.55-1.3) 06/17/21 10:46 Glucose 100 mg/dL (74-106) 06/17/21 10:46 Magnesium 2.2 mg/dL (1.8-2.4) 06/16/21 16:45 Total Bilirubin 0.7 mg/dL (0.2-1.0) 06/17/21 10:46 AST 23 U/L (15-37) 06/17/21 10:46 ALT 24 U/L (12-78) 06/17/21 10:46 Alkaline Phosphatase 78 U/L (45-117) 06/17/21 10:46 Triglycerides 129 mg/dL (<150) 06/17/21 10:46 Cholesterol 120 mg/dL (<200) 06/17/21 10:46 HDL Cholesterol 36 mg/dL (40-60) L 06/17/21 10:46 Cholesterol/HDL Ratio 3.33 06/17/21 10:46 Home Medications: Naproxen Sodium [Aleve] 220 mg PO DAILYPRN PRN 06/16/21 Aspirin [Aspirin EC 81 MG] 81 mg PO DAILY 30 Days #30 tablet. 06/17/21 Atorvastatin Calcium [Lipitor] 40 mg PO BEDTIME 30 Days #30 tab 06/17/21 Clopidogrel Bisulfate [Plavix] 75 mg PO DAILY 30 Days #30 tablet 06/17/21 Metoprolol Tartrate [Lopressor*] 0.5 tab PO BID 30 Days #30 tab 06/17/21 New Medications: Aspirin [Aspirin EC 81 MG] 81 mg PO DAILY 30 Days #30 tablet. Atorvastatin Calcium [Lipitor] 40 mg PO BEDTIME 30 Days #30 tab Metoprolol Tartrate [Lopressor*] 0.5 tab PO BID 30 Days #30 tab Clopidogrel Bisulfate [Plavix] 75 mg PO DAILY 30 Days #30 tablet Diet: AHA Activity: Ad sophia Followup: Michel Blake MD [ACTIVE - CAN ADMIT] - Unknown,U [Primary Care Provider] - Time spent managing pt's care (in minutes): 45
--- NOTE | 2021-06-18 20:25 | CON ---
Date of Consultation: 06/17/2021 The patient was admitted to Dr. Allred on 06/16/2021. He was seen on 06/17/2021. Reason For Consultation: [id number]-PE-[id number] myocardial infarction. History Of Present Illness: Mr. Bailey is 60, fairly healthy, had a heart catheterization about 5 yea rs ago that was normal by Dr. Phillips. He came in with chest pain that occurred after he was working in his yard. He described it as substernal chest pressure that lasted a few hours without any nausea , vomiting, diaphoresis, PND, orthopnea, pedal edema, palpitations, or syncope. He did get short of breath. In the emergency room, EKG, chest x-ray were unremarkable. However, his troponin was elevat ed consistent with cla-CW-npxiovnaj myocardial infarction. Past Medical History: Negative. Allergies: NONE. Review of Systems: Negative. Social History: Negative. Family History: Negative. Medications: None. Physical Examination: Vital Signs: Stable, afebrile. HEENT: Negative. Neck: Supple with no bruit. Chest: Clear. Cardiac: Regular rhythm and rate. No murmurs, gallops, or rubs. Abdomen: Benign. Extremities: No clubbing, cyanosis, or edema. Diagnostic Data: Within normal limits except for the troponin. Impression And Plan: Jin-MR-cregurqsy myocardial infarction. Continue aspirin and continue heparin. Needs to be on a beta adam, low-dose statin. We will do a left heart catheterization today to r ule out coronary artery disease. The patient understands the risk and the benefits of the procedure and he agrees to proceed. The case was discussed with Dr. Allred as well. JANA/MILAGROS Voice ID: [id number] Report ID: [id number]
== END 2021-06-17 13:41 | disposition home or self-care (01) ==
LOC: ER 16:37 → ERHOLD 19:08 → 4TH 22:09
PROVIDERS: ADMIT Hospitalist; ATTEND Hospitalist
DX: I21.4 Non-ST elevation (NSTEMI) myocardial infarction (principal); I25.10 Atherosclerotic heart disease of native coronary artery without angina pectoris; I10 Essential (primary) hypertension; K21.9 Gastro-esophageal reflux disease without esophagitis; G47.33 Obstructive sleep apnea (adult) (pediatric); N20.0 Calculus of kidney; M54.9 Dorsalgia, unspecified; Z79.82 Long term (current) use of aspirin; Z79.899 Other long term (current) drug therapy; Z20.822 Contact with and (suspected) exposure to COVID-19; Z88.2 Allergy status to sulfonamides; Z82.49 Family history of ischemic heart disease and other diseases of the circulatory system
CPT/HCPCS: 93005 ×3; 85025 ×2; 80048; 36415; 83735; 85610; 80061; 80076; 85730; 84484 ×3; 80053; 83880; 0240U; 71045; 93454; 96375; 96374; 99285; C1893; Q9966; C1760; G0269; J2250 ×2; J3010; J2270 ×3; G0378 ×3; J7040; J1644 ×2; J2405; J0583

== ENCOUNTER 2021-11-07 07:08 | Day surgery (SDC) | payer BC ==
[2021-11-07] MEDS ORDERED: Ringers Lactate 1,000 ML IV ONE (07:40)
[2021-11-07] MEDS ORDERED: GLYCOPYRROLATE 0.2 MG/ML SYR ONE (08:10)
[2021-11-07] MEDS ORDERED: propofoL 200 MG/20 ML VIAL IV ONE (08:10)
[2021-11-07] MEDS ORDERED: LIDOCAINE 1% MPF 30 ML VIAL ONE (08:10)
--- NOTE | 2021-11-07 08:53 | ENDO RPT ---
[address], [address] COLONOSCOPY PROCEDURE REPORT EXAM DATE: 11/07/2021 PATIENT NAME: Anthony Bailey MR #: [id number] BIRTHDATE: 1960 ATTENDING: Tom Lawson MD STATUS: outpatient CASH APPLICATION REPRESENTATIVE: Misa Hernandez RN, Lupe Prasad RN, and Theo Lau CST INDICATIONS: The patient is a 61 yr old Male here for a colonoscopy due to colon cancer screening PROCEDURE PERFORMED: Colonoscopy with biopsy - cold polypectomy MEDICATIONS: Per Anesthesia. ESTIMATED BLOOD LOSS: None CONSENT: The patient understands the risks and benefits of the procedure and understands that these risks include, but are not limited to: sedation, allergic reaction, infection, perforation and/or bleeding. Alternative means of evaluation and treatment include, among others: physical exam, x-rays, and/or surgical intervention. The patient elects to proceed with this endoscopic procedure. DESCRIPTION OF PROCEDURE: During intra-op preparation period all mechanical medical equipment was checked for proper function. Hand hygiene and appropriate measures for infection prevention was taken. Procedure, possible complications, alternatives including, but not limited to possibility of bleeding, perforation, tear, infection, sepsis, need for surgery, need for blood transfusion, were explained to the patient. After the risks, benefits and alternatives of the procedure were thoroughly explained, Informed consent was verified, confirmed and timeout was successfully executed by the treatment team. The patient was placed in the left lateral position. A digital rectal exam was performed and revealed external hemorrhoids. After appropriate level of anesthesia, the scope was passed. The EC-[id number] ([id number]) and [id number] ([id number]) endoscope was introduced through the anus and advanced to the cecum, which was identified by transillumination from the light source, the appendix, and the ileocecal valve. The quality of the prep was good. The instrument was then slowly withdrawn as the colon was fully examined. Scope withdrawal time was . COLON FINDINGS: Two sessile polyps were found at approximately 80 and 110cm from anal verge. Retroflexed views revealed no abnormalities. The scope was then completely withdrawn from the patient and the procedure terminated. ADVERSE EVENTS: There were no complications. IMPRESSIONS: 1. Two sessile polyps ranging between 3-5mm in size were found; multiple biopsies were performed using hot forceps 2. External hemorrhoids 3. Internal hemorrhoids RECOMMENDATIONS: 1. follow-up: office 1 week(s) 2. await biopsy results 3. hemorrhoidal hygiene RECALL: for Colonoscopy, pending biopsy results. Tom Lawson MD eSigned: Tom Lawson MD 11/07/2021 8:53 AM cc: Adolfo Putnam MD CPT CODES: ICD9 CODES: PATIENT NAME: Anthony Bailey MR#: [id number]
[2021-11-07 09:29] VITALS: BP 135/62; TEMP 96.5; O2SAT 98
== END 2021-11-07 09:28 | disposition home or self-care (01) ==
LOC: OR 07:08
PROVIDERS: ATTEND Surgery
PROC: 0DBE8ZX Excision of Large Intestine, Via Natural or Artificial Opening Endoscopic, Diagnostic (ICD-10-PCS; principal; 2021-11-07 08:30)
DX: Z12.11 Encounter for screening for malignant neoplasm of colon (principal); D12.6 Benign neoplasm of colon, unspecified; K64.8 Other hemorrhoids; K64.4 Residual hemorrhoidal skin tags; I10 Essential (primary) hypertension; I25.10 Atherosclerotic heart disease of native coronary artery without angina pectoris; M06.9 Rheumatoid arthritis, unspecified; I25.2 Old myocardial infarction; Z79.899 Other long term (current) drug therapy; Z88.2 Allergy status to sulfonamides
CPT/HCPCS: 88305; 45384; J2704; J7120

== ENCOUNTER 2022-12-30 13:52 | Emergency (ER) | payer BC ==
--- OUTSIDE RECORDS SUMMARY | 2022-12-30 13:56 | XMS REPORT | Continuity of Care Document ---
:1960 Author Organization [facility] t Address [address] [facility] [place] [address] Care Team Providers Name Role Phone Asked, No Pcp Primary Care Physician Unavailable Adolfo Putnam Attending Clinician Unavailable RUDDY ROSE Attending Clinician Unavailable DERRELL ESCOBAR Attending Clinician Unavailable PUNEET PRATT Attending Clinician Unavailable Robel Branham Attending Clinician Unavailable Payers Payer Name Policy Type Policy Number Effective Date Expiration Date Ralph lee Blue [employer] 6 [id number] 2014 Common Spiri t Blue Shield of 00:00:00 - [facility] Problems Condition Condition Condition Status Onset Resolution Last Treating Co mments Source Name Details Category Date Date Treatment Clinician Date Bone pain Bone pain Disease Active [facility] due to due to 3-15 st G-CSF G-CSF 00:00: Hospita 00 l Donor of Donor of Disease Active Metho di stem cell stem cell 3-11 st 00:00: Hospita 00 l Stem cell Stem cell Disease Active [facility] donor donor 2-10 st 00:00: Hospita 00 l [id number] Coronary Problem Com mon 107 artery Spirit disease - [facility] involving [facility] coronary Medical artery [facility] [place] [facility], angina presence unspecifie d [id number] Generalize Problem Com mon d anxiety Spirit disorder - [facility] [id number] Hypertensi Problem Com mon on, Spirit unspecifie - [facility] d type [facility] [id number] Body mass Problem Com mon index Spirit [BMI] - [facility] 32.0-32.9, [facility] [id number] Other Problem Common obesity Spirit due to - [facility] excess [facility] Allergies, Adverse Reactions, Alerts Allergy Allergy Status Severity Reaction(s) Onset Inactive Treating Comm ents Source Name Type Date Date Clinician Sulfa DA Active [place] [facility] ([place] 7[facility]24 [place] [facility] 00:00: [facility] Antibiot 00 dic ics) [facility]osp[facility] Sulfa DA Active [place] NAUSEA [facility] ([place]ulf[place] 7[facility]24 [place] [facility] 00:00: Orthope Antibiot 00 dic ics) [facility] Sulfa DA Active [place] [facility] ([place]ulfona 6-26 [place] [facility] 00:00: [facility]ope Antibiot 00 dic ics) [facility]osp[facility] Sulfa DA Active [place] [facility] ([place]ulfona 3-15 [place] [facility] 00:00: [facility]ope Antibiot 00 dic ics) Hospita l Family History Family Member Diagnosis Comments Start Date Stop Date Source Natural [facility] Natural sister Lymphoma [facility] Social History Social Habit Start Date Stop Date Quantity Comments Source History of Tobacco Common Spirit - Use [facility] Alcohol intake 2021-04-01 2021-04-01 .14 /d [facility] 00:[facility]00 Hospital History of Social 2021-04-01 2021-04-[address] function 00:00:00 00:00:00 Hospital Tobacco use and 2021-04-01 2021-04-01 Smokeless [facility] 00:00:00 00:00:00 tobacco non-user Hospital Sex Assigned At [birth year] [facility] 00:00[facility] 00[facility]00 Hospital Smoking Status Start Date Stop Date Source Former Smoker 2021-10-18 00:00:00 2021-10-18 00:00:00 Common S pirit - [facility] Medications Ordered Filled Start Stop Current Ordering Indication Dosage Frequency Signature Comments Components Source Medication Medication Date Date Medication? Clinician (SIG) Name Name Paxlovid 10 Paxlovid 10 No Paxlovid x 150 MG & x 150 MG & 6-28 10 x 150 10 x 100MG 10 x 100MG 00:00: MG & 10 x 00 100MG Metoprolol Metoprolol Yes Adolfo 1 tablet Common Succinate Succinate 04-22 Putnam Spir it ER ER 00:00: - [facility] 00 [facility] Metoprolol Metoprolol No 1{table QD Metoprolol Succinate Succinate t} Succinate ER 25 MG ER 25 MG ER 25 MG Tylenol # 3 Tylenol # 3 No Tylenol # 300/30mg 300/30mg 3 300/30mg Tylenol # 3 Tylenol # 3 No Tylenol # 300/30mg 300/30mg 3 300/30mg Metoprolol Metoprolol No 1{table QD Metoprolol Succinate Succinate t} Succinate ER 25 MG ER 25 MG ER 25 MG Tylenol # 3 Tylenol # 3 No Tylenol # 300/30mg 300/30mg 3 300/30mg Metoprolol Metoprolol No 1{table QD Metoprolol Succinate Succinate t} Succinate ER 25 MG ER 25 MG ER 25 MG Tylenol # 3 Tylenol # 3 No Tylenol # 300/30mg 300/30mg 3 300/30mg Metoprolol Metoprolol No 1{table QD Metoprolol Succinate Succinate t} Succinate ER 25 MG ER 25 MG ER 25 MG Tylenol # 3 Tylenol # 3 No Tylenol # 300/30mg 300/30mg 3 300/30mg Tylenol # 3 Tylenol # 3 Yes Adolfo one tab Common [facility] Metoprolol Metoprolol No 1{table QD Metoprolol Succinate Succinate t} Succinate ER 25 MG ER 25 MG ER 25 MG Vital Signs Vital Name Observation Time Observation Value Comments Source height 2021-10-18 09:30:00 68.5 [in_i] [facility] weight 2021-10-18 09:30:00 222 [lb_av] [facility] temperature 2021-10-18 09:30:00 97.6 [degF] [facility] bmi 2021-10-18 09:30:00 33.26 kg/m2 [facility] oximetry 2021-10-18 09:30:00 97 % [facility] respiratory rate 2021-10-18 09:30:00 17 /min Comm on [facility] blood pressure 2021-10-18 09:30:00 139 mm[Hg] Common [facility] - systolic [facility] blood pressure 2021-10-18 09:30:00 77 mm[Hg] Common [facility] - diastolic [facility] height 2021-09-16 11:40:00 68.5 [in_i] [facility] weight 2021-09-16 11:40:00 217 [lb_av] [facility] temperature 2021-09-16 11:40:00 98.4 [degF] [facility] bmi 2021-09-16 11:40:00 32.51 kg/m2 [facility] oximetry 2021-09-16 11:40:00 96 % [facility] respiratory rate 2021-09-16 11:40:00 16 /min Comm on [facility] blood pressure 2021-09-16 11:40:00 132 mm[Hg] [facility] systolic [facility] blood pressure 2021-09-16 11:40:00 70 mm[Hg] [facility] diastolic [facility] Procedures This patient has no known procedures. Plan of Care Planned Activity Planned Date Details Comments Source Future Scheduled 2022-12-16 [facility] Test 19:40:20 malignant neoplasm of colon (procedure) [code = 750910249] Future Scheduled 2022-12-16 [facility] Test 19:40:20 malignant neoplasm of colon (procedure) [code = 886319802] Future Scheduled 2022-12-16 [facility] Test 19:40:20 malignant neoplasm of colon (procedure) [code = 619388150] Future Scheduled 2022-12-16 [facility] Test 19:40:20 screening (procedure) [code = 370526249] Future Scheduled 2022-12-16 [facility] Test 19:40:20 malignant neoplasm of colon (procedure) [code = 939093820] Future Scheduled 2022-12-16 [facility] Test 19:40:20 malignant neoplasm of colon (procedure) [code = 628376703] Future Scheduled 2022-12-16 SHINGLES VACCINES [facility] Test 19:40:20 (1 of 2) [code = SHINGLES VACCINES (1 of 2)] Future Scheduled 2022-12-16 COVID-19 VACCINE (2 [facility] Test 19:40:20 - season) [code = COVID-19 VACCINE (2 - season)] Future Scheduled 2022-12-16 INFLUENZA VACCINE [facility] Test 19:40:20 (#1) [code = INFLUENZA VACCINE (#1)] Encounters Start End Encounter Admission Attending Care Care Encounter Source Date/Time Date/Time Type Type Clinicians Facility Department ID 2021-09-19 Outpatient Putnam, [facility] [place] [id number] Common 13:39:01 Adolfo [id number] [facility] 2021-03-16 [facility] [id number] Common 12:48:39 Adolfo 28389 [facility] 2021-03-16 Out[facility] Putnam, [facility] [id number] Common 12:40:35 Adolfo 20503 [facility] 2021-03-16 Outpatient Putnam, [facility] [id number] Common 12:39:42 Adolfo 24432 [facility] 2021-03-16 Outpatient Putnam, [facility] [id number] Common 12:36:30 Adolfo 28574 [facility] 2021-03-16 [place], [facility] [id number] Common 12:02:57 Adolfo 23492 [facility] 2021-03-16 Outpatient [place], [facility] [id number] Common 11:59:41 Adolfo 39494 [facility] 2021-03-16 Outpatient Putnam, [facility] [id number] Common 11:11:34 [facility] [address] [facility] 2021-12-06 2021-12-06 (TEL) STLMLC ST[facility] [id number] Co mmon 00:00:00 00:00:00 [facility] 2021-10-20 2021-10-20 (TEL) STLMLC STLMLC [id number] Co mmon 00:00:00 00:00:00 [facility] 2021-10-18 2021-10-18 OFFICE STLMLC STLMLC [id number] Co mmon 00:00:00 00:00:00 VISIT [facility] ESTAB PT - CHI LEVEL 4 [facility] 2021-09-16 2021-09-16 PREV VISIT STLMLC STLMLC [id number] Common 00:00:00 00:00:00 EST AGE [facility] 40-64 - [facility] 2021-08-16 2021-08-16 (TEL) STLMLC STLMLC [id number] Co mmon 00:00:00 00:00:00 [facility] 2021-05-04 2021-05-04 Outpatient ROSE, [facility] [id number] [place] 00:00:00 00:00:00 RUDDY 574 Method i 2021-05-03 2021-05-03 Outpatient ROSE, [facility] [id number] [place] 00:00:00 00:00:00 RUDDY 573 Method i 2021-05-03 2021-05-03 Outpatient CARRUM, [facility] [id number] [place] 00:00:00 00:00:00 DERRELL 892 Method i 2021-04-29 2021-04-29 Outpatient ROSE, [facility] [id number] [place] 00:00:00 00:00:00 RUDDY 572 Method i 2021-04-01 2021-04-01 Outpatient ROSE, [facility] [id number] [place] 00:00:00 00:00:00 RUDDY 573 Method i 2021-04-01 2021-04-01 Outpatient ROSE, [facility] [id number] [place] 00:00:00 00:00:00 RUDDY 580 Method i 2020-07-01 2020-07-01 Outpatient STLMLC STL[facility]C [id number] Common 00:00:00 00:00:00 [facility] 2020-06-03 2020-06-03 Outpatient [facility] [id number] [place] 00:00:00 00:00:00 PUNEET Azevedo [facility] 2020-05-24 2020-05-24 Outpatient STLMLC STLMLC [id number] Common 00:00:00 00:00:00 [facility] 2020-04-30 2020-04-30 Outpatient STLMLC STLMLC [id number] Common 00:00:00 00:00:00 [facility] 2020-04-23 2020-04-23 Outpatient STLMLC STLMLC [id number] Common 00:00:00 00:00:00 [facility] 2020-04-02 2020-04-02 Outpatient STLMLC STLMLC [id number] Common 00:00:00 00:00:00 [facility] 2020-04-02 2020-04-02 Outpatient STLMLC STLMLC [id number] Common 00:00:00 00:00:00 [facility] 2020-01-05 2020-01-05 Outpatient STLMLC STLMLC [id number] Common 00:00:00 00:00:00 [facility] 2020-01-01 2020-01-01 Outpatient STLMLC STLMLC [id number] Common 00:00:00 00:00:00 [facility] 2020-01-01 2020-01-01 Outpatient STLMLC STLMLC [id number] Common 00:00:00 00:00:00 [facility] 2019-12-29 2019-12-29 Outpatient STLMLC STLMLC [id number] Common 00:00:00 00:00:00 [facility] 2019-12-17 2019-12-17 Outpatient STLMLC STLMLC [id number] Common 00:00:00 00:00:00 [facility] 2019-12-10 2019-12-10 Outpatient STLMLC STLMLC [id number] Common 00:00:00 00:00:00 [facility] 2019-10-21 2019-10-21 Outpatient KANDICE Branham [facility] [id number] [facility] 10:00:00 10:00:00 Robel [address] [facility] 2019-09-25 2019-09-25 Outpatient Naveed Hebert [id number] Common 10:30:00 10:30:[address] [facility] 2019-06-25 2019-06-25 Outpatient Naveed Luciot [id number] Common 11:15:00 11:15:[address] [facility] 2019-04-23 2019-04-23 Outpatient Naveed Hebert [id number] Common 13:15:00 13:15:[address] [facility] Results Test Description Test Time Test Comments Results Result Comments Source Lipid Panel With LDL/HDL Ratio 2021-09-16 00:00:00 Test Item Value Reference Range Interpretation Comme nts Cholesterol, Total (test code 157 mg/dL See_Comment [Automated message] The system = 280-3) which generated this result transmitted ref erence range: 100-199 mg/dL. The reference range was not u sed to interpret this result as normal/abnormal. Triglycerides (test code = 185 mg/dL See_Comment H [Automated message] The system 1092-5) which generated this result transmitted ref erence range: 0-149 mg/dL. Th e reference range was not used to interpret this result as nik l/abnormal. HDL Cholesterol (test code = 34 mg/dL See_Comment L [Automated message] The system 7753-9) which generated this result transmitted ref erence range: >39 mg/dL. The refe rence range was not used to int erpret this result as nik l/abnormal. UA/M w/rflx Culture, [id number] 00:00:00 Test Item Value Reference Range Interpretation Comments Specific [place] (test >=1.030 1.005-1.030 A code = 2965-2) pH (test code = 6.0 5.0-7.5 5803-2) Urine-Color (test code Yellow Yellow = 5778-6) Appearance (test code Clear Clear = 5767-9) WBC Esterase (test Negative Negative code = 5799-2) Protein (test code = Trace Negative/Trace 46886-7) Glucose (test code = Negative Negative 2349-9) Ketones (test code = Negative Negative 2514-8) Occult Blood (test Negative Negative code = 5794-3) Bilirubin (test code = Negative Negative 5770-3) Urobilinogen,Semi-Qn 0.2 mg/dL See_Comment [Autom ated message] (test code = 27282-9) The sy stem which generated this result transmitted ref erence range: 0.2-1.0 mg/dL. The reference r tosin was not used to interpret this result as normal/abnor mal. Nitrite, Urine (test Negative Negative code = 5802-4) Microscopic See below: Examination (test code = 88329-2) Urinalysis Reflex (test code = UNLOINC) Prostate-Specific Ag, [id number] 00:00:00 Test Item Value Reference Range Interpretation Comments Prostate Specific Ag 1.9 ng/mL See_Comment [Autom ated message] (test code = 2857-1) The sys tem which generated this result transmitted ref erence range: 0.0-4.0 ng/mL. The reference r tosin was not used to int erpret this result as normal/abnormal . Hemoglobin [id number] 00:00:00 Test Item Value Reference Range Interpretation Comments Hemoglobin A1c (test 5.5 % See_Comment [Autom ated message] The code = 4548-4) system which generated this result tra nsmitted reference range : 4.8-5.6 %. The referenc e range was not used to interpret this result as normal/abnormal . Comp. Metabolic Panel (14) (CMP)2021-09-16 00:00:00 Test Item Value Reference Range Interpretation Comments Glucose (test code = 92 mg/dL See_Comment [Autom ated message] 2345-7) The system whic h generated this result transmitted ref erence range: 65-99 mg /dL. The reference r tosin was not used to interpret this result as normal/abnor mal. BUN (test code = 17 mg/dL See_Comment [Automated message] 3094-0) The system [employer] generated this result transmitted ref erence range: 8-27 mg/ dL. The reference r tosin was not used to interpret this result as normal/abnor mal. Creatinine (test code 0.86 mg/dL See_Comment [Auto mated message] = 2160-0) The system [employer] generated this result transmitted ref erence range: 0.76-1.2 7 mg/dL. The refe rence range was not u sed to interpret this result as normal/abnor mal. BUN/Creatinine Ratio 20 10-24 (test code = 3097-3) Sodium (test code = 144 mmol/L See_Comment [Automa whitney message] 8301-2) The system [employer] generated this result transmitted ref erence range: 134-144 mmol/L. The ref erence range was not u sed to interpret this result as normal/abnor mal. Potassium (test code = 4.8 mmol/L See_Comment [Aut omated message] 2207-3) The system [employer] generated this result transmitted ref erence range: 3.5-5.2 mmol/L. The ref erence range was not u sed to interpret this result as normal/abnor mal. Chloride (test code = 104 mmol/L See_Comment [Auto mated message] 7585-0) The system [employer] generated this result transmitted ref erence range: 96-106 m mol/L. The reference r tosin was not used to interpret this result as normal/abnor mal. Carbon Dioxide, Total 22 mmol/L See_Comment [Auto mated message] (test code = 2027-9) The s tem which generated this result transmitted ref erence range: 20-29 mm ol/L. The reference r tosin was not used to interpret this result as normal/abnor mal. Calcium (test code = 9.2 mg/dL See_Comment [Autom ated message] 31688-6) The system [employer] generated this result transmitted ref erence range: 8.6-10.2 mg/dL. The refe rence range was not u sed to interpret this result as normal/abnor mal. Protein, Total (test 6.9 g/dL See_Comment [Autom ated message] code = 4927-2) The system [facility] generated this result transmitted ref erence range: 6.0-8.5 g/dL. The reference r tosin was not used to interpret this result as normal/abnor mal. Albumin (test code = 4.5 g/dL See_Comment [Autom ated message] 1751-7) The system [facility] generated this result transmitted ref erence range: 3.8-4.8 g/dL. The reference r tosin was not used to interpret this result as normal/abnor mal. Globulin, Total (test 2.4 g/dL See_Comment [Auto mated message] code = 04811-5) The system [facility] generated this result transmitted ref erence range: 1.5-4.5 g/dL. The reference r tosin was not used to interpret this result as normal/abnor mal. A/G Ratio (test code = 1.9 1.2-2.2 1759-0) Bilirubin, Total (test 0.6 mg/dL See_Comment [Aut omated message] code = 1975-2) The system [facility] generated this result transmitted ref erence range: 0.0-1.2 mg/dL. The reference r tosin was not used to interpret this result as normal/abnor mal. Alkaline Phosphatase 102 IU/L See_Comment [Autom ated message] (test code = 6768-6) The [facility] tem which generated this result transmitted ref erence range: 44-121 I U/L. The reference r tosin was not used to interpret this result as normal/abnor mal. AST (SGOT) (test code 20 IU/L See_Comment [Auto mated message] = 1920-8) The system [facility] generated this result transmitted ref erence range: 0-40 IU/ L. The reference range was not used to int erpret this result as normal/abnormal . ALT (SGPT) (test code 16 IU/L See_Comment [Auto mated message] = 7192-6) The system [facility] generated this result transmitted ref erence range: 0-44 IU/ L. The reference range was not used to int erpret this result as normal/abnormal . Uric Acid, [id number] 00:00:00 Test Item Value Reference Range Interpretation Comments Uric Acid (test 6.7 mg/dL See_Comment [Automated message] The code = 3084-1) system which generated this result tra nsmitted reference range : 3.8-8.4 mg/dL. The refe rence range was not u sed to interpret this result as normal/abnormal . CBC With Differential/[id number] 00:00:00 Test Item Value Reference Range Interpretation Comments WBC (test code = 7.9 x10E3/uL See_Comment [Automated 2169-2) message] The sy stem which generated this result transmitted reference range : 3.4-10.8 x10E3/ uL. The reference r tosin was not used to interpret this result as normal/abnormal . RBC (test code = 5.22 x10E6/uL See_Comment [Automate d 009-8) message] The sy stem which generated this result transmitted reference range : 4.14-5.80 x10E6 /uL. The reference r tosin was not used to interpret this result as normal/abnormal . Hemoglobin (test code 14.6 g/dL See_Comment [Auto mated = 978-7) message] The sy stem which generated this result transmitted reference range : 13.0-17.7 g/dL. The reference range was not used to interpret this result as normal/abnormal . Hematocrit (test code 43.4 % See_Comment [Auto mated = 0744-3) message] The sy stem which generated this result transmitted reference range : 37.5-51.0 %. Th e reference range was not used to interpret this result as normal/abnormal . MCV (test code = 83 fL See_Comment [Automated 267-2) message] The sy stem which generated this result transmitted reference range : 79-97 fL. The reference range was not used to interpret this result as normal/abnormal . MCH (test code = 28.0 pg See_Comment [Automated 715-6) message] The sy stem which generated this result transmitted reference range : 26.6-33.0 pg. T he reference range was not used to interpret this result as normal/abnormal . MCHC (test code = 33.6 g/dL See_Comment [Automate d 416-4) message] The sy stem which generated this result transmitted reference range : 31.5-35.7 g/dL. The reference range was not used to interpret this result as normal/abnormal . RDW (test code = 13.3 % See_Comment [Automated 788-0) message] The sy stem which generated this result transmitted reference range : 11.6-15.4 %. Th e reference range was not used to interpret this result as normal/abnormal . Platelets (test code 221 x10E3/uL See_Comment [Autom ated = 777-3) message] The sy stem which generated this result transmitted reference range : 150-450 x10E3/u L. The reference r tosin was not used to interpret this result as normal/abnormal . Neutrophils (test 71 % Not Estab. % code = 770-8) Lymphs (test code = 18 % Not Estab. % 736-9) Monocytes (test code 8 % Not Estab. % = 5905-5) Eos (test code = 2 % Not Estab. % 713-8) Basos (test code = 1 % Not Estab. % 706-2) Immature Cells (test code = UNLOINC) Neutrophils 5.6 x10E3/uL See_Comment [Automated (Absolute) (test code messag e] The system = 751-8) which generated this result transmitted reference range : 1.4-7.0 x10E3/u L. The reference r tosin was not used to interpret this result as normal/abnormal . Lymphs (Absolute) 1.4 x10E3/uL See_Comment [Automate d (test code = 731-0) message] The system which generated this result transmitted reference range : 0.7-3.1 x10E3/u L. The reference r tosin was not used to interpret this result as normal/abnormal . Monocytes(Absolute) 0.6 x10E3/uL See_Comment [Automa whitney (test code = 742-7) message] The system which generated this result transmitted reference range : 0.1-0.9 x10E3/u L. The reference r tosin was not used to interpret this result as normal/abnormal . Eos (Absolute) (test 0.2 x10E3/uL See_Comment [Autom ated code = 711-2) message] The s ystem which generated this result transmitted reference range : 0.0-0.4 x10E3/u L. The reference r tosin was not used to interpret this result as normal/abnormal . Baso (Absolute) (test 0.1 x10E3/uL See_Comment [Auto mated code = 704-7) message] The s ystem which generated this result transmitted reference range : 0.0-0.2 x10E3/u L. The reference r tosin was not used to interpret this result as normal/abnormal . Immature Granulocytes 0 % Not Estab. % (test code = 10072-7) Immature Grans (Abs) 0.0 x10E3/uL See_Comment [Autom ated (test code = 28705-8) messag e] The system which generated this result transmitted reference range : 0.0-0.1 x10E3/u L. The reference r tosin was not used to interpret this result as normal/abnormal . NRBC (test code = 34579-7) Hematology Comments: (test code = 03253-4) TSH reflex to [id number] 00:00:00 Test Item Value Reference Range Interpretation Comments TSH (test code = 1.980 uIU/mL See_Comment [Automated message] The 15624-9) system which ge nerated this result tra nsmitted reference range : 0.450-4.500 uIU /mL. The reference range was not used to interpr et this result as normal/abnormal . - MRI [facility] W/O CONT [id number] 10:43:00 Patient Name: ANTHONY BAILEY Unit No: [id number] EXAMS: CPT CODE: [id number] MRI [place] [facility] [place] [address] MR of the left shoulder without contrast [...] visualized. 2. Biceps tenodesis. 3. 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 at 1043 Reported and signed by: Anthony Montero M.D. CC: Robel Branham MD Technologist: BUCK CASTRO RT(R) Transcribed D/ (1043) [facility] NAME: ANTHONY BAILEY [address] [facility] PHYS: Robel Santos : 1960 AGE: 59 SEX: M [place] [address] LOC: Y.MRI PHONE #: [phone] DATE: 10/21/2019 STATUS: REG CLI FAX #: [phone] RAD #: D/C DT PAGE 1 Signed Report Patient Name: ANTHONY BAILEY Unit No: [id number] EXAMS: CPT CODE: [id number] MRI [place] J[place] [address] (Continued) Orig Print D/T: S: 10/21/2019 (1046) [facility] NAME: ANTHONY BAILEY [address] [facility] PHYS: BHAKTI BranhamRobel Almaraz : 1960 AGE: 59 SEX: M [place] [address] LOC: Y.MRI PHONE #: [phone] EXAM DATE: 10/21/2019 STATUS: REG [place] #: [phone] RAD #: D/C DT PAGE 2 Signed Report BASIC METABOLIC [id number] 12:05:00 Test Item Value Reference Range Interpretation Comments SODIUM (test code = 138 mmol/L 136-145 N NA) POTASSIUM (test code = 4.6 mmol/L 3.5-5.1 N K) CHLORIDE (test code = 102.0 mmol/L 98-107 N CL) CARBON DIOXIDE (test 27.9 mmol/L 21-32 N code = CO2) GLUCOSE (test code = 94 mg/dL 70-110 N GLU) BLOOD UREA NITROGEN 17 mg/dL 7-18 N (test code = BUN) GLOMERULAR FILTRATION 71.0 >60 Unit o f measure: RATE (test code = GFR) mL/mi n/1.73 [id number] Range:Healthy Adults >90 mL/min/1.73 m2 For Chronic Kidney Disease: Stage II Mild Decrease i n GFR 60-90 Stage III Moderate Decrea se in GFR 30-59 St age IV Severe Decre ase in GFR 15-29 St age V Kidney Failu re <15 CREATININE (test code 1.07 mg/dL 0.55-1.30 N = CREAT) CALCIUM (test code = 9.1 mg/dL 8.2-10.1 N CA) HGB [id number] 11:40:00 Test Item Value Reference Range Interpretation Comments HEMOGLOBIN (test code = HGB) 14.9 g/dL 12-16 N HEMATOCRIT (test code = HCT) 42.7 % 37-47 N - MRI UP [facility] W/O CONT [id number] 16:27:00 Patient Name: ANTHONY BAILEY Unit No: [id number] EXAMS: CPT CODE: [id number] MRI [place] [facility] [place] [address] MRI OF THE LEFT SHOULDER DIAGNOSIS: 1. Partial-thickness tearing of the supraspinatus tendon greatest along [...] there may be entrapment. The SLAP tear contiguouslyinvolves the posterior labrum with small posterior labral cyst. There is also subchondral cyst formation in the posterior glenoid without a focal cartilage defect. COMMENT: COMPARISON: No prior exams available. Scans were performed in the paracoronal, parasagittal and axial planes utilizing T1 , spin density with fat saturation and T2-weighting with and without fat saturation. The subscapularis tendon is within normal limits in appearance. The remainder the rotator cuff is abnormal as described. Theacromion is horizontal with AC joint degenerative change. The labrum is torn. There is a physiologicamount of joint fluid and a minimal amount of bursal fluid. at 1627 Reported and signed by: Joey Ferrera MD CC: Robel Branham MD Technologist: Eleni Enciso(R) Transcribed D/ (6059) [facility] NAME: ANTHONY BAILEY [address] [facility] PHYS: Robel Santos : 1960 AGE: 57 SEX: [place] [address] LOC: Y.MRI PHONE #: [phone] EXAM DATE: 07/11/2018 STATUS: REG CLI FAX #: [phone] RAD #: D/C DT PAGE 1 Signed Report Patient Name: ANTHONY BAILEY Unit No: [id number] EXAMS: CPT CODE: [id number] [place] J[place] [address] (Continued) Orig Print D/T: S: 07/11/2018 (1630) [facility] NAME: ANTHONY VALDIVIA [address] [facility] PHYS: Robel Santos : 1960 AGE: 57 SEX: [place] [id number] LOC: Y.MRI PHONE #: [phone] EXAM DATE: 07/11/2018 STATUS: REG CLI FAX #: [phone] RAD #: D/C DT PAGE 2 Signed ReportColonoscopyColonoscopy
[2022-12-30 14:41] LABS: Absolute Lymphocytes (CBC) 1.3 K/uL (0.7-4.9); Hematocrit 44.4 % (39.6-49.0); Lymphocytes % 16.3 % (15.3-44.8); MCV 85.9 fL (80-100); MPV 7.3 fL (7.6-11.3); Platelets 222 thou/uL (152-406); RBC Red Blood Cell Count 5.17 M/uL (4.33-5.43)
[2022-12-30 15:00] LABS: Potassium 4.2 mEq/L (3.5-5.1)
--- NOTE | 2022-12-30 16:08 | RAD REPORT ---
EXAM DESCRIPTION: US - Extremity Venous Uni Ltd - 12/30/2022 3:10 pm CLINICAL HISTORY: Pain COMPARISON: None. TECHNIQUE: Real-time sonographic evaluation of the left lower extremity deep venous system was perfo rmed. FINDINGS: Normal compressibility, flow augmentation, phasic flow and spontaneous flow is identified in the left lower extremity deep venous system. No intraluminal filling defects seen. IMPRESSION: No DVT in the left lower extremity.
--- NOTE | 2022-12-30 16:52 | RAD REPORT ---
EXAM DESCRIPTION: RADChest Single View12/30/2022 3:22 pm CLINICAL HISTORY: CHEST PAIN COMPARISON: Chest Single View dated 06/16/2021; Chest Single View dated 04/05/2019; Chest Single View dated 01/20/2019; Chest Single View dated 12/20/2018 TECHNIQUE: Portable AP view of the chest. FINDINGS: The lungs are clear. No pneumothorax or effusion. The cardiomediastinal contours are unre markable. IMPRESSION: No acute cardiopulmonary process.
--- NOTE | 2022-12-30 17:13 | EDPHYS ---
Physician Documentation [facility] Name: Anthony Bailey Age: 62 yrs Sex: Male : 1960 Arrival Date: 12/30/2022 Time: 13:52 Bed 16 Private MD: ED Physician Zhao Robledo HPI: 12/30 14:26 This 62 yrs old Male presents to ER via Ambulatory with complaints of LEFT ec2 HAND NUMBNESS. 14:26 Patient arrives today for evaluation of multiple complaints. Patient reports that he ec2 had some left lower extremity pain in the calf as well as the mid thigh and was concerned about a DVT. Patient reports no trauma to the area, denies any leg swelling. Patient reports no erythema, no fevers or chills. Patient also with complaints of left-sided chest pain, reports history of ACS, states this does not feel similar to his previous cardiac events. Patient also with complaints of occasional left hand numbness, specifically in the first second and third digit. Patient without trauma, denies any weakness.. Historical: - Allergies: 14:01 Sulfa (Sulfonamide Antibiotics); ll1 - PMHx: 14:01 Back pain; Hypertension; [place] 2017; Myocardial infarction; ll1 - PSHx: 14:01 B knees MCL tears (Myocardial infarction); rotator cuff SX (Myocardial infarction); ll1 - Immunization history:: Client reports receiving the 2nd dose of the Covid vaccine. - Social history:: Smoking status: Patient denies any tobacco usage or history of. ROS: 14:26 Constitutional: as per hpi ec2 Exam: 14:26 Constitutional: GEN: NAD Head: atraumatic Eyes: EOMI Ears: External ears are ec2 normal. CV: regular rate, no lower extremity edema LUNGS: no respiratory distress ABD: non-distended SKIN: no evidence of rashes MSK: no evidence of trauma, positive left-sided Tinel's sign NEURO: moves all extremities equally Vital Signs: 14:02 BP 163 / 93; Pulse 74; Resp 17; Temp 98.2; Pulse Ox 99% ; Weight 97.52 kg; Height 5 ft. ll1 9 in. ; Pain 6/10; 14:41 BP 161 / 81; Pulse 74; Resp 18; Pulse Ox 98% on R/A; mb9 15:16 BP 143 / 99; Pulse 80; Resp 16; Pulse Ox 99% on R/A; mb9 16:27 BP 140 / 70; Pulse 78; Resp 18; Pulse Ox 100% on R/A; mb9 14:02 Body Mass Index 31.75 (97.52 kg, 175.26 cm) ll1 14:02 Pain Scale: Adult ll1 MDM: 13:58 Patient medically screened. ec2 14:26 ED course: Patient arrives today for evaluation of multiple complaints. Examination ec2 remarkable for well-appearing nontoxic individual who has a reassuring neurologic exam who is otherwise in no acute distress. Will obtain a cardiac work-up, ultrasound. Currently considering process such as ACS, will suspicion for PE or dissection, additionally considering DVT however lower suspicion for this as well. Also considering median nerve syndrome given the patient's positive Tinel's sign as well as distribution of his symptoms. Low suspicion for stroke.. ED course: EKG independently reviewed and interpreted by me, shows normal sinus rhythm, rate of 69, no acute ST segment elevations, nonconcerning intervals. 15:05 Data reviewed: vital signs. ED course: Metabolic profile is reassuring, CBC is ec2 reassuring, troponin within normal ranges. . 17:10 ED course: Ultrasound is negative for DVT. Chest x-ray with no acute intrathoracic ec2 process. On reassessment patient is well-appearing with no recurrence of symptoms and is symptom-free. Will discharge home, return precautions given. . 12/30 14:26 Order name: Basic Metabolic Panel; Complete Time: 15:05 2 12/30 14:26 Order name: CBC with Diff; Complete Time: 15:05 2 12/30 14:26 Order name: Troponin HS; Complete Time: 15:05 2 12/30 14:26 Order name: XRAY Chest (1 view); Complete Time: 17:10 ec2 12/30 14:26 Order name: Extremity Venous Uni Ltd US; Complete Time: 17:10 2 12/30 14:07 Order name: EKG; Complete Time: 14:07 1 12/30 14:07 Order name: EKG - Nurse/Tech; Complete Time: 14:08 1 12/30 14:26 Order name: Cardiac monitoring; Complete Time: 14:41 2 12/30 14:26 Order name: IV Saline Lock; Complete Time: 14:41 ec2 12/30 14:26 Order name: Labs collected and sent; Complete Time: 14:41 ec2 12/30 14:26 Order name: O2 Per Protocol; Complete Time: 14:41 ec2 12/30 14:26 Order name: O2 Sat Monitoring; Complete Time: 14:41 ec2 Administered Medications: No medications were administered Disposition Summary: 12/30/22 17:12 Discharge Ordered Notes: Location: Home ec2 Condition: Stable ec2 Diagnosis - Chest pain, unspecified ec2 - Pain in left leg ec2 Discharge Instructions: - Discharge Summary Sheet ec2 - Nonspecific Chest Pain, Adult ec2 Forms: - Medication Reconciliation Form ec2 - Thank You Letter ec2 - Antibiotic Education ec2 - Prescription Opioid Use ec2 - Patient Portal Instructions ec2 - Leadership Thank You Letter ec2 Signatures: Dispatcher [employer] Mickey Leigh, RN RN ll1 Zhao Robledo MD MD ec2
--- NOTE | 2022-12-30 17:13 | ER ---
Nurse's Notes [facility] Name: Anthony Bailey Age: 62 yrs Sex: Male : 1960 Arrival Date: 12/30/2022 Time: 13:52 Bed 16 Private MD: Diagnosis: Chest pain, unspecified;Pain in left leg Presentation: 12/30 14:02 Chief complaint: Patient states: L leg pain started 3 days ago. L arm and hand felt ll1 tingly night. Had CP yesterday also. Coronavirus screen: Vaccine status: Patient reports receiving the 2nd dose of the covid vaccine. Client denies travel out of the [place] in the last 14 days. At this time, the client does not indicate any symptoms associated with coronavirus-19. Ebola Screen: Patient denies travel to an Ebola-affected area in the 21 days before illness onset. Initial Sepsis Screen: Does the patient meet any 2 criteria? No. Patient's initial sepsis screen is negative. Does the patient have a suspected source of infection? No. Patient's initial sepsis screen is negative. Risk Assessment: Do you want to hurt yourself or someone else? Patient reports no desire to harm self or others. Onset of symptoms was December 28, 2022. 14:02 Method Of Arrival: Ambulatory ll1 14:02 Acuity: DANIEL 3 ll1 Triage Assessment: 14:06 General: Appears in no apparent distress. Behavior is calm, cooperative, appropriate ll1 for age. Pain: Complains of pain in left leg Pain currently is 7 out of 10 on a pain scale. Quality of pain is described as aching. Cardiovascular: Reports chest pain. Musculoskeletal: Reports numbness in left arm pain in left leg. Historical: - Allergies: 14:01 Sulfa (Sulfonamide Antibiotics); ll1 - PMHx: 14:01 Back pain; Hypertension; [place] 2017; Myocardial infarction; ll1 - PSHx: 14:01 B knees MCL tears (Myocardial infarction); rotator cuff SX (Myocardial infarction); ll1 - Immunization history:: Client reports receiving the 2nd dose of the Covid vaccine. - Social history:: Smoking status: Patient denies any tobacco usage or history of. Screenin:07 [facility] ED Fall Risk Assessment (Adult) Score/Fall Risk Level 0 - 2 = Low Risk ll1 Oriented to surroundings, Maintained a safe environment, Educated pt \T\ family on fall prevention, incl call for assistance when getting out of bed, Hourly rounding (assess needs \T\ fall precautionary measures) done. Abuse screen: Denies threats or abuse. Nutritional screening: No deficits noted. Tuberculosis screening: No symptoms or risk factors identified. Assessment: 14:39 General: Behavior is calm, cooperative. Pain: Denies pain. Neuro: [place] mb9 Agitation-Sedation Scale (RASS): 0 - Alert and Calm Level of Consciousness is awake, alert, obeys commands, Oriented to person, place, time, situation, Appropriate for age. Cardiovascular: Denies chest pain. Respiratory: Airway is patent Respiratory effort is even, unlabored, Respiratory pattern is regular, symmetrical, Breath sounds are clear bilaterally. GI: Abdomen is round non-distended. : No signs and/or symptoms were reported regarding the genitourinary system. EENT: No signs and/or symptoms were reported regarding the EENT system. Derm: Skin is pink, warm \T\ dry. Musculoskeletal: Range of motion: intact in all extremities. 16:21 Reassessment: No changes from previously documented assessment. Patient and/or family mb9 updated on plan of care and expected duration. Pain level reassessed. Patient is alert, oriented x 3, equal unlabored respirations, skin warm/dry/pink. 17:33 Reassessment: No changes from previously documented assessment. Patient and/or family mb9 updated on plan of care and expected duration. Pain level reassessed. Patient is alert, oriented x 3, equal unlabored respirations, skin warm/dry/pink. Vital Signs: 14:02 BP 163 / 93; Pulse 74; Resp 17; Temp 98.2; Pulse Ox 99% ; Weight 97.52 kg; Height 5 ft. ll1 9 in. ; Pain 6/10; 14:41 BP 161 / 81; Pulse 74; Resp 18; Pulse Ox 98% on R/A; mb9 15:16 BP 143 / 99; Pulse 80; Resp 16; Pulse Ox 99% on R/A; mb9 16:27 BP 140 / 70; Pulse 78; Resp 18; Pulse Ox 100% on R/A; mb9 14:02 Body Mass Index 31.75 (97.52 kg, 175.26 cm) [facility] 14:02 Pain Scale: Adult ll1 ED Course: 13:56 Patient arrived in ED. kj1 13:58 Zhao Robledo MD is Attending Physician. ec2 14:04 Triage completed. ll1 14:04 Arm band placed on. ll1 14:24 Aimee Gomez, RN is Primary Nurse. mb9 14:24 Patient placed in an exam room, on a stretcher. ll1 14:37 EKG done, by ED staff, reviewed by Zhao Robledo MD. Inserted saline lock: 20 gauge in mb9 left antecubital area, using aseptic technique. 14:38 Placed in gown. Bed in low position. Call light in reach. Side rails up X 1. Client mb9 placed on continuous cardiac and pulse oximetry monitoring. NIBP monitoring applied. station baggage agent on. 14:38 No provider procedures requiring assistance completed. mb9 14:41 Basic Metabolic Panel Sent. mb9 14:41 CBC with Diff Sent. mb9 14:41 Troponin HS Sent. mb9 15:11 Extremity Venous Uni Ltd US In Process Unspecified. EDMS 15:24 XRAY Chest (1 view) In Process Unspecified. EDMS 17:33 IV discontinued, intact, bleeding controlled, No redness/swelling at site. Pressure mb9 dressing applied. Administered Medications: No medications were administered Medication: 14:07 VIS not applicable for this client. ll1 Outcome: 17:12 Discharge ordered by . ec2 17:33 Discharged to home ambulatory, mb9 17:33 Condition: stable 17:33 Discharge instructions given to patient, Instructed on discharge instructions, follow up and referral plans. Demonstrated understanding of instructions, follow-up care, 17:33 Patient left the ED. mb9 Signatures: Dispatcher [employer] ED Destiney Jarquin kj1 Mickey Martinez, RN RN ll1 Aimee Gomez, RN RN mb9 Zhao Robledo MD MD ec2 Corrections: (The following items were deleted from the chart) 14:25 14:07 Patient has correct armband on for positive identification. Call light in reach. ll1 Side rails up X 1. ll1 14:25 14:07 Client placed on continuous cardiac and pulse oximetry monitoring. NIBP ll1 monitoring applied. station baggage agent on. ll1
[2022-12-30 17:50] VITALS: TEMP 98.2
[2022-12-30 17:54] VITALS: BP 140/70; O2SAT 100
--- NOTE | 2023-01-03 17:36 | EKG ---
Test Date: 2022-12-30 Test Time: 14:22:02 [employer]: JADEN MEASUREMENT RESULTS: Intervals: Rate: 69 [place]: 130 QRSD: 86 QT: 388 QTc: 415 [place]: P: 19 [place]: 130 QRS: 26 T: 11 INTERPRETIVE STATEMENTS: Normal sinus rhythm Normal ECG Compared to ECG 06/17/2021 01:58:48 No significant changes Electronically Signed On 01-03-23 17:26:12 ASSET PROTECTION ASSOCIATE by Max Kelsey
== END 2022-12-30 17:33 | disposition home or self-care (01) ==
LOC: ER 13:52
DX: R07.89 Other chest pain (principal); M79.605 Pain in left leg; R20.0 Anesthesia of skin; I10 Essential (primary) hypertension; I25.2 Old myocardial infarction; Z88.2 Allergy status to sulfonamides
CPT/HCPCS: 36415; 71045; 80048; 84484; 85025; 93005; 93971; 99284

== ENCOUNTER → 2023-02-18 | Emergency (ER) | payer BC ==
[~2023-02-18] MED LIST: ACETAMINOPHEN 500 MG TAB ONE; ASPIRIN EC 325 MG TABLET PO ONE; ATORVASTATIN 40 MG TAB ONE; ATORVASTATIN 80 MG TAB PO SCH; FOLIC ACID 5 MG/ML VIAL ONE; MECLIZINE HCL 12.5 MG TAB ONE; NA CHLORIDE 0.9% 1,000 ML IV SCH; NA CHLORIDE 0.9% 1,000 ML ONE
[2023-02-18 16:51] LABS: Absolute Lymphocytes (CBC) 1.3 K/uL (0.7-4.9); Hematocrit 43.3 % (39.6-49.0); Lymphocytes % 16.2 % (15.3-44.8); MCV 85.3 fL (80-100); MPV 7.4 fL (7.6-11.3); Platelets 226 thou/uL (152-406); RBC Red Blood Cell Count 5.08 M/uL (4.33-5.43)
--- NOTE | 2023-02-18 16:56 | RAD REPORT ---
EXAM DESCRIPTION: RAD - Chest Single View - 02/18/2023 4:33 pm CLINICAL HISTORY: diplopia Chest pain. COMPARISON: <Comparisons> FINDINGS: Portable technique limits examination quality. The lungs are grossly clear. The heart is normal in size. No displaced fractures. IMPRESSION: No acute intrathoracic process suspected.
[2023-02-18 17:11] LABS: Potassium 3.9 mEq/L (3.5-5.1); Troponin High Sensitivity 3.7 pg/mL (<58.9)
[2023-02-18 17:23] LABS: Protime INR 1.1
--- NOTE | 2023-02-18 18:11 | RAD REPORT ---
EXAM DESCRIPTION: CT - Ct Stroke Brain Wo Cont - 02/18/2023 6:01 pm CLINICAL HISTORY: STROKE ALERT Headache, CVA COMPARISON: <Comparisons> TECHNIQUE: All CT scans are performed using dose optimization technique as appropriate and may inclu de automated exposure control or mA/KV adjustment according to patient size. FINDINGS: No intracranial hemorrhage, hydrocephalus or extra-axial fluid collection.No areas of brai n edema or evidence of midline shift. The paranasal sinuses and mastoids are clear. The calvarium is intact. IMPRESSION: No acute intracranial abnormality.
--- NOTE | 2023-02-18 18:13 | RAD REPORT ---
EXAM DESCRIPTION: CT - Head angio - 02/18/2023 6:01 pm CLINICAL HISTORY: diplopia, dizzy, right eye droop Headache, CVA COMPARISON: <Comparisons> TECHNIQUE: CT angiography of the head was performed with MIPs. All CT scans are performed using dose optimization technique as appropriate and may include automated exposure control or mA/KV adjustment according to patient size. FINDINGS: No evidence of large vessel occlusion. No evidence of aneurysm is detected. No flow-limiti ng stenosis or vascular malformation identified. Antegrade flow is seen in the vertebral arteries. The vertebral arteries are codominant. The visualized dural venous sinuses are patent. IMPRESSION: No significant flow abnormality is detected.
--- NOTE | 2023-02-18 18:23 | RAD REPORT ---
EXAM DESCRIPTION: CT - Neck Angio - 02/18/2023 6:01 pm CLINICAL HISTORY: diplopia, dizzy Headache, CVA COMPARISON: <Comparisons> TECHNIQUE: CT angiography of the neck vessels was performed with MIPs. All CT scans are performed using dose optimization technique as appropriate and may include automated exposure control or mA/KV adjustment according to patient size. FINDINGS: A left aortic arch is identified with normal three vessel configuration of the great vesse ls. No significant flow abnormality is seen of the common carotid bilaterally. There is hard plaquing seen in both carotid bulbs, greater on the left. Stenosis estimated on the lef t the 50-70% based on NASCET criteria. Stenosis on the right is less than 50%. Normal flow is seen within both vertebral arteries. IMPRESSION: Moderate hard plaque is present in both carotid bulbs, greater on the left. This results in a stenosis estimated at 50-70% involving the left carotid bulb. NASCET criteria used. Mild 0-49% stenosis Moderate 50-69% stenosis Severe 70-99% stenosis
--- NOTE | 2023-02-18 18:29 | ER ---
Nurse's Notes [facility] Name: Anthony Bailey Age: 62 yrs Sex: Male : 1960 Arrival Date: 02/18/2023 Time: 15:19 Bed 19 Private MD: Diagnosis: Diplopia;Ataxia, unspecified;Dizziness and giddiness Presentation: 02/18 16:03 Chief complaint: Patient states: cp that began yesterday while working. pt reports kc6 dizziness and right eye droop with double vision. Coronavirus screen: At this time, the client does not indicate any symptoms associated with coronavirus-19. Ebola Screen: No symptoms or risks identified at this time. Initial Sepsis Screen: Does the patient meet any 2 criteria? No. Patient's initial sepsis screen is negative. Does the patient have a suspected source of infection? No. Patient's initial sepsis screen is negative. Risk Assessment: Do you want to hurt yourself or someone else? Patient reports no desire to harm self or others. Onset of symptoms was February 17, 2023. 16:03 Method Of Arrival: Ambulatory kc6 16:03 Acuity: DANIEL 3 kc6 Triage Assessment: 16:05 General: Appears in no apparent distress. comfortable, well groomed, well developed, kc6 Behavior is calm, cooperative, appropriate for age. Pain: Denies pain. EENT: No signs and/or symptoms were reported regarding the EENT system. Neuro: Level of Consciousness is awake, alert, obeys commands, Oriented to person, place, time, situation, Appropriate for age [employer] are equal bilaterally Moves all extremities. Full function Gait is steady, Speech is normal, Facial symmetry appears normal, Pupils are PERRLA, Intact. Cardiovascular: Capillary refill < 3 seconds. Respiratory: Airway is patent Trachea midline Respiratory effort is even, unlabored, Respiratory pattern is regular, symmetrical. GI: No signs and/or symptoms were reported involving the gastrointestinal system. : No signs and/or symptoms were reported regarding the genitourinary system. Derm: No signs and/or symptoms reported regarding the dermatologic system. Skin is intact, is healthy with good turgor, Skin is pink, warm \T\ dry. Musculoskeletal: No signs and/or symptoms reported regarding the musculoskeletal system. Circulation, motion, and sensation intact. Capillary refill < 3 seconds, Range of motion: intact in all extremities. Historical: - Allergies: 16:05 Sulfa (Sulfonamide Antibiotics); kc6 - PMHx: 16:05 Back pain; Hypertension; SD 2017; kc6 - PSHx: 16:05 B knees MCL tears (di); rotator cuff SX (di); kc6 - Immunization history:: Adult Immunizations up to date. - Social history:: Smoking status: Patient denies any tobacco usage or history of. - Family history:: not pertinent. - Hospitalizations: : No recent hospitalization is reported. Screenin:06 [facility] ED Fall Risk Assessment (Adult) History of falling in the last 3 months, kc6 including since admission No falls in past 3 months (0 pts) Confusion or Disorientation No (0 pts) Intoxicated or Sedated No (0 pts) Impaired Gait No (0 pts) Mobility Assist Device Used No (0 pt) Altered Elimination No (0 pt) Score/Fall Risk Level 0 - 2 = Low Risk. Abuse screen: Denies threats or abuse. Denies injuries from another. Nutritional screening: No deficits noted. Tuberculosis screening: No symptoms or risk factors identified. 16:07 [facility] Swallow Protocol Brief Cognitive Screen What is your name? Normal, Where are you kc6 right now? Normal, What year is it? Normal. Oral Mechanism Examination Facial Symmetry: Normal, Motion: Normal, Lip Closure: Normal, Oral Mechanism Result: Normal. 3 oz Water Swallow Challenge: Pt able to drink all water without stopping, coughing, choking or throat clearing: Yes Result: PASS MD Notified: Felice Allred MD. Assessment: 16:06 Reassessment: please see triage assessment. [facility] 16:55 Reassessment: Patient appears in no apparent distress at this time. No changes from kc6 previously documented assessment. Patient and/or family updated on plan of care and expected duration. Pain level reassessed. Patient is alert, oriented x 3, equal unlabored respirations, skin warm/dry/pink. 17:49 Reassessment: Patient appears in no apparent distress at this time. No changes from kc6 previously documented assessment. Patient and/or family updated on plan of care and expected duration. Pain level reassessed. Patient is alert, oriented x 3, equal unlabored respirations, skin warm/dry/pink. 19:05 Reassessment: Patient appears in no apparent distress at this time. No changes from km8 previously documented assessment. Patient and/or family updated on plan of care and expected duration. Pain level reassessed. Patient is alert, oriented x 3, equal unlabored respirations, skin warm/dry/pink. Dr. Varner talking with pt; pt requesting to be transferred; Dr. Varner to work on possible transfer. 21:12 Reassessment: Patient appears in no apparent distress at this time. Patient and/or [facility] family updated on plan of care and expected duration. Pain level reassessed. Patient is alert, oriented x 3, equal unlabored respirations, skin warm/dry/pink. pt reporting a NUNEZ; pt given Lipitor 80 mg PO and NS at 75ml/hr in right AC as ordered in [facility] by Dr. Varner. Vital Signs: 16:03 BP 159 / 82; Pulse 90; Resp 16 S; Temp 98.6(O); Pulse Ox 99% on R/A; Weight 96.16 kg kc (R); Height 5 ft. 9 in. (R); 16:55 BP 152 / 80; Pulse 70; Resp 16 S; Pulse Ox 96% on R/A; kc6 17:49 BP 129 / 76; Pulse 68; Resp 19 S; Pulse Ox 93% on R/A; [facility] 19:00 BP 155 / 80; Pulse 79; Resp 16; Pulse Ox 97% on R/A; km8 20:00 BP 175 / 94; Pulse 90; Resp 16; Pulse Ox 97% on R/A; 8 21:11 BP 164 / 82; Pulse 85; Resp 16; Pulse Ox 98% on R/A; [facility] 16:03 Body Mass Index 31.31 (96.16 kg, 175.26 cm) [facility] NIH Stroke Scale Scores: 21:00 NIHSS Score: 1 [facility] ED Course: 15:22 Patient arrived in ED. ae5 15:50 Felice Allred MD is Attending Physician. rn 15:53 Ashlee Easton RN is Primary Nurse. kc6 16:05 Triage completed. kc6 16:05 Arm band placed on. kc6 16:06 Patient maintains SpO2 saturation greater than 95% on room air. kc6 16:07 Patient has correct armband on for positive identification. Placed in gown. Bed in low kc6 position. Call light in reach. Side rails up X 1. Client placed on continuous cardiac and pulse oximetry monitoring. NIBP monitoring applied. central supply technician on. 16:21 Inserted saline lock: 18 gauge in right antecubital area, using aseptic technique. kc6 Blood collected. 16:34 Stroke CXR 1 View In Process Unspecified. EDMS 18:03 CT Head Angio In Process Unspecified. EDMS 18:03 CT Neck Angio In Process Unspecified. EDMS 18:03 CT Stroke Brain w/o Contrast In Process Unspecified. EDMS 18:28 Moo Varner MD is Hospitalizing Provider. rn 19:31 1924 called [facility] no answer. sp 19:33 called [facility] for transfer talked to [facility]. sp 19:51 No provider procedures requiring assistance completed. [facility] 22:14 Provided Education on: transfer process. [facility] 22:14 Patient transferred, IV remains in place. [facility] 23:[address] Shan Fletcher accepted pt to [facility] For transfer. [address] [address] 2031 [facility] alex Delgado RN TC gave admin approval report number [phone] fax [phone] called [facility] for transfer to [facility]. Administered Medications: 18:36 Drug: Aspirin PO 325 mg PO once Route: PO; [facility] 19:53 Follow up: Response: No adverse reaction 8 18:37 Drug: foLIC Acid IVPB 1 mg IVPB once Route: IVPB; Site: right antecubital; 6 19:53 Follow up: IV Status: Completed infusion 8 18:40 Drug: Meclizine PO 50 mg PO once Route: PO; 6 19:53 Follow up: Response: No adverse reaction 8 21:00 Drug: Atorvastatin PO 80 mg PO once Route: PO; km8 22:14 Follow up: Response: No adverse reaction 8 21:00 Drug: NS 0.9% IV 1000 ml IV at 75 ml/hr continuous Route: IV; Rate: 75 ml/hr; Site: [facility] right antecubital; 21:45 Follow up: IV Status: Infusion continued upon transfer km8 21:19 Drug: Acetaminophen PO 1000 mg PO once Route: PO; km8 21:59 Follow up: Response: No adverse reaction Medication: 19:52 VIS not applicable for this client. km8 Outcome: 18:28 Decision to Hospitalize by Provider. rn 22:09 ER care complete, transfer ordered by . ec2 22:14 Transferred by ground EMS to [facility], Transfer form completed. km8 22:14 Condition: good 22:14 Instructed on the need for transfer, Demonstrated understanding of instructions, 22:23 Patient left the ED. km8 NIH Stroke Scale - NIH Stroke Score Date: 02/18/2023 Time: 21:00 Total Score = 1 10. Dysarthria (speech clarity - read or repeat words) - 0(Normal) 11. Extinction and Inattention (visual/tactile/auditory/spatial/personal) - 0(No abnormality) 1a. Level of Consciousness (LOC) - 0(Alert) 1b. Level of Consciousness (LOC) (Month \T\ Age) - 0(Both) 1c. LOC Commands (Open \T\ Closes Eyes/Materials Management Supervisor) - 0(Both) 2. Best Gaze (Lateral Gaze Paresis) - 0(Normal) 3. Visual Field Loss - 0(No visual loss) 4. Facial Palsy - 1(Minor Paralysis) 5a. Left Arm: Motor (10-second hold) - 0(No drift) 5b. Right Arm: Motor (10-second hold) - 0(No drift) 6a. Left Leg: Motor (5-second hold - always test supine) - 0(No drift) 6b. Right Leg: Motor (5-second hold - always test supine) - 0(No drift) 7. Limb Ataxia (finger/nose \T\ heel/morocho - test with eyes open) - 0(Absent) 8. Sensory Loss (pinprick arms/legs/face) - 0(Normal) 9. Best Language: Aphasia (description/naming/reading) - 0(No aphasia) Initials: [facility] Signatures: Dispatcher [employer] EDMS Josie Sepulveda Roman, MD MD rn Campbell, Kaitlyn, RN RN kc6 Zhao Robledo MD MD ec2 Yanelis De Santiago RN RN 8 Virgie Walton ae5
--- NOTE | 2023-02-18 18:29 | EDPHYS ---
Physician Documentation [facility] Name: Anthony Bailey Age: 62 yrs Sex: Male : 1960 Arrival Date: 02/18/2023 Time: 15:19 Bed 19 Private MD: ED Physician Felice Allred HPI: 02/18 17:56 This 62 yrs old Male presents to ER via Ambulatory with complaints of Dizziness, double rn Vision. 17:56 The patient presents with dizziness, feeling off balance. Onset: The symptoms/episode rn began/occurred yesterday. Modifying factors: The symptoms are alleviated by nothing, the symptoms are aggravated by movement of head, changing position. Severity of symptoms: At their worst the symptoms were moderate in the emergency department the symptoms are unchanged. The patient has not experienced similar symptoms in the past. 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 No head injury. No headache. No history of stroke. No damage or trauma to the eye. No chest pain or shortness of breath. Slept on it with taking aspirin thinking it would improve and did not improve, still present this morning.. Historical: - Allergies: 16:05 Sulfa (Sulfonamide Antibiotics); kc6 - PMHx: 16:05 Back pain; Hypertension; RI 2016; kc6 - PSHx: 16:05 B knees MCL tears (di); rotator cuff SX (di); kc6 - Immunization history:: Adult Immunizations up to date. - Social history:: Smoking status: Patient denies any tobacco usage or history of. - Family history:: not pertinent. - Hospitalizations: : No recent hospitalization is reported. ROS: 17:56 Constitutional: Negative for fever, chills, and weight loss, Eyes: Positive for double rn vision, no loss of vision Cardiovascular: Negative for chest pain, palpitations, and edema, Respiratory: Negative for shortness of breath, cough, wheezing, and pleuritic chest pain, Abdomen/GI: Negative for abdominal pain, nausea, vomiting, diarrhea, and constipation, Back: Negative for injury and pain, MS/Extremity: Negative for injury and deformity, Skin: Negative for injury, rash, and discoloration, Neuro: Positive for dizziness and feeling unsteady. Exam: 17:56 Constitutional: This is a well developed, well nourished patient who is awake, alert, rn and in no acute distress. Ambulatory to room with slightly unsteady gait but does not require assistance Head/Face: Normocephalic, atraumatic. Eyes: Pupils equal round and reactive to light, extra-ocular motions intact. Mild nystagmus with left lateral gaze. Visual zapata intact. No strabismus noted Cardiovascular: Regular rate and rhythm. No pulse deficits. Respiratory: No increased work of breathing, no retractions or nasal flaring. Neuro: Awake and alert, GCS 15, oriented to person, place, time, and situation. Cranial nerves II-XII grossly intact. Motor strength 5/5 in all extremities. Sensory grossly intact. Unsteady gait. Wide-based gait 18:05 ECG was reviewed by the Attending Physician. rn Vital Signs: 16:03 BP 159 / 82; Pulse 90; Resp 16 S; Temp 98.6(O); Pulse Ox 99% on R/A; Weight 96.16 kg [facility] (R); Height 5 ft. 9 in. (R); 16:55 BP 152 / 80; Pulse 70; Resp 16 S; Pulse Ox 96% on R/A; 6 17:49 BP 129 / 76; Pulse 68; Resp 19 S; Pulse Ox 93% on R/A; [facility] 19:00 BP 155 / 80; Pulse 79; Resp 16; Pulse Ox 97% on R/A; 8 20:00 BP 175 / 94; Pulse 90; Resp 16; Pulse Ox 97% on R/A; 8 21:11 BP 164 / 82; Pulse 85; Resp 16; Pulse Ox 98% on R/A; km8 16:03 Body Mass Index 31.31 (96.16 kg, 175.26 cm) [facility] NIH Stroke Scale Scores: 21:00 NIHSS Score: 1 km8 MDM: 15:51 Patient medically screened. rn 18:26 Differential diagnosis: cardiac arrhythmia, CVA, generalized weakness, hypovolemia, rn idiopathic dizziness, TIA, vertigo. Data reviewed: vital signs, nurses notes, lab test result(s), EKG, radiologic studies, CT scan, and as a result, I will admit patient. Consideration of Admission/Observation Patient was admitted/placed on observation. Escalation of care including admission/observation considered. Counseling: I had a detailed discussion with the patient and/or guardian regarding the historical points, exam findings, and any diagnostic results supporting the discharge/admit diagnosis, lab results, radiology results, the need for further work-up and treatment in the hospital. Response to treatment: There is no appreciated change of the patient's symptoms at this time, and as a result, I will admit patient. Special discussion:. ED course: No clear etiology of symptoms at this time. Given diplopia, abnormal gait, dizziness will admit for further workup to rule out CVA. CT head and CT angio head and neck without large vessel occlusion or acute stroke at this time.. 22:10 ED course: Dr. Rodríguez, hospitalist initiated transfer of this patient and discussed with ec2 the transferring physician Dr. MEHTA who accepted the patient. I was not involved with the care, I changed the status from admission to transfer for administrative purposes. 02/18 16:02 Order name: Basic Metabolic Panel; Complete Time: 17: 02/18 16:02 Order name: CBC with Diff; Complete Time: 17: 02/18 16:02 Order name: High Sensitivity Troponin; Complete Time: 17: rn 02/18 16:02 Order name: Protime (+inr); Complete Time: 17: rn 02/18 16:02 Order name: Ptt, Activated; Complete Time: 17: rn 02/18 16:02 Order name: CT Head Angio; Complete Time: 18: rn 02/18 16:02 Order name: CT Neck Angio; Complete Time: 18: rn 02/18 16:02 Order name: CT Stroke Brain w/o Contrast; Complete Time: 18: rn 02/18 16:02 Order name: Stroke CXR 1 View; Complete Time: 17: rn 02/18 16:02 Order name: EKG; Complete Time: 16: rn 02/18 16:02 Order name: Accucheck; Complete Time: 16: rn 02/18 16:02 Order name: Cardiac monitoring; Complete Time: 16: rn 02/18 16:02 Order name: EKG - Nurse/Tech; Complete Time: 16: 02/18 16:02 Order name: IV Saline Lock; Complete Time: 16: 02/18 16:02 Order name: Labs collected and sent; Complete Time: 16: rn 02/18 16:02 Order name: NPO; Complete Time: 16: rn 02/18 16:02 Order name: O2 Per Protocol; Complete Time: 16: rn 02/18 16:02 Order name: O2 Sat Monitoring; Complete Time: 16: rn 02/18 16:02 Order name: Stroke Swallow Screen; Complete Time: 16:07 rn EC:05 Rate is 78 beats/min. Rhythm is regular. QRS Severance is Normal. [place] interval is normal. QRS rn interval is normal. QT interval is normal. No Q waves. T waves are Normal. No ST changes noted. Clinical impression: Normal ECG. Interpreted by me. Reviewed by me. Administered Medications: 18:36 Drug: Aspirin PO 325 mg PO once Route: PO; [facility] 19:53 Follow up: Response: No adverse reaction [facility] 18:37 Drug: foLIC Acid IVPB 1 mg IVPB once Route: IVPB; Site: right antecubital; [facility] 19:53 Follow up: IV Status: Completed infusion [facility] 18:40 Drug: Meclizine PO 50 mg PO once Route: PO; [facility] 19:53 Follow up: Response: No adverse reaction [facility] 21:00 Drug: Atorvastatin PO 80 mg PO once Route: PO; [facility] 22:14 Follow up: Response: No adverse reaction [facility] 21:00 Drug: NS 0.9% IV 1000 ml IV at 75 ml/hr continuous Route: IV; Rate: 75 ml/hr; Site: [facility] right antecubital; 21:45 Follow up: IV Status: Infusion continued upon transfer [facility] 21:19 Drug: Acetaminophen PO 1000 mg PO once Route: PO; [facility] 21:59 Follow up: Response: No adverse reaction [facility] Disposition Summary: 02/18/23 22:09 Transfer Ordered Notes: Reason: Higher level of care ec2 Condition: Stable(02/18/23 22:09) ec2 Problem: an acute exacerbation(02/18/23 22:09) ec2 Symptoms: are unchanged(02/18/23 22:09) ec2 Transfer Location: [facility](02/18/23 22:10) ec2 Accepting Physician: Dr. Fletcher(02/18/23 22:23) [facility] Diagnosis - Diplopia(02/18/23 22:09) ec2 - Ataxia, unspecified ec2 - Dizziness and giddiness(02/18/23 22:09) ec2 Forms: - Medication Reconciliation Form ec2 - SBAR form ec2 NIH Stroke Scale - NIH Stroke Score Date: 02/18/2023 Time: 21:00 Total Score = 1 10. Dysarthria (speech clarity - read or repeat words) - 0(Normal) 11. Extinction and Inattention (visual/tactile/auditory/spatial/personal) - 0(No abnormality) 1a. Level of Consciousness (LOC) - 0(Alert) 1b. Level of Consciousness (LOC) (Month \T\ Age) - 0(Both) 1c. LOC Commands (Open \T\ Closes Eyes/Metal Wire Technician) - 0(Both) 2. Best Gaze (Lateral Gaze Paresis) - 0(Normal) 3. Visual Field Loss - 0(No visual loss) 4. Facial Palsy - 1(Minor Paralysis) 5a. Left Arm: Motor (10-second hold) - 0(No drift) 5b. Right Arm: Motor (10-second hold) - 0(No drift) 6a. Left Leg: Motor (5-second hold - always test supine) - 0(No drift) 6b. Right Leg: Motor (5-second hold - always test supine) - 0(No drift) 7. Limb Ataxia (finger/nose \T\ heel/morocho - test with eyes open) - 0(Absent) 8. Sensory Loss (pinprick arms/legs/face) - 0(Normal) 9. 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 No head injury. No headache. No history of stroke. No damage or trauma to the eye. No chest pain or shortness of breath.. rn 22:08 18:28 Observation rn [email or web address] 22:08 18:28 Moo Varner rn ec2 : 18:28 Telemetry/MedSurg (observation) rn ec2 : 18:28 Stable rn ec2 : 18:28 new rn ec2 : 18:28 are unchanged rn ec2 22: 18:28 Standard rn ec2 :08 18:28 rn ec2 22:08 18:28 Diplopia rn ec2 : 18:28 Dizziness and giddiness rn ec2 : 18:28 Ataxic gait rn ec2 22:10 22:09 transferring doc ec2 ec2 22:10 22:09 Other Acute Care Facility ec2 ec2 22:23 22:10 Dr. Fletcher ec2 km8
--- NOTE | 2023-02-18 20:11 | P.CNS ---
Date of Consult: 02/18/23 Reason for Consult: Acute CVA Requesting Physician: Felice Allred Chief Complaint: Vertigo, ataxia, diplopia History of Present Illness: Patient is a 62-year-old gentleman came to the hospital with complaints of double vision. Patient states his symptoms started yesterday afternoon. 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 He felt a little nauseated and was not feeling like himself. He did not want to stop working because he did not want the concrete to drive so he finished playing the concrete yesterday afternoon. Yesterday evening when he was at his home he got really frustrated because he was feeling worse. He was feeling like he was not able to see and could not keep his balance well. Patient also was having persistent nausea and vomiting. When he woke up yesterd ay morning he was felt a little bit better but still not himself. His family convinced him to come into the emergency room today. He came into the ER around 3 PM. He was almost 24 hours out from his symptoms initial presentation. His symptoms were suggestive of a [employer] infarct. Patient had CT angio of the brain as well as a CT of the head which were unremarkable except for a left 70% carotid artery stenosis and his right 50% carotid artery stenosis. Patient's posterior circulation was normal as was his basilar artery circulation and vertebral artery circulation. CT of the brain otherwise was unremarkable. Patient's systolic blood pressure was 150s and his heart rate was 70s. Patient is otherwise stable and ambulating without difficulty. Patient will be admitted to the hospital for further workup. Allergies Sulfa (Sulfonamide Antibiotics) [Sulfa(Sulfonamide Antibiotics)] Allergy (Intermediate, Verified 11/04/21 12:07) Nausea/Vomiting Home Medications: Aspirin [Aspirin EC 81 MG] 81 mg PO DAILY 30 Days #30 tablet. 06/17/21 Metoprolol Tartrate [Lopressor*] 0.5 tab PO BID 30 Days #30 tab 06/17/21 Saw/Vit E/Sod Meaghan/Lyc/Beta/Pyg [Prostate Health Caplet] 1 each PO DAILY 11/04/21 - Past Medical/Surgical History Diabetic: No -: HTN -: Back pain -: GERD -: Nephrolithiasis -: Obstructive sleep apnea -: Mild CAD -: Cyst removed from the L5 region -: Bilateral knee surgery -: UP3 -: Heart catheterization 2017 no stents Psychosocial/ Personal History: Lives at home with family - Family History Sister Medical History: Heart disease - Social History Smoking Status: Unknown if ever smoked Alcohol use: No CD- Drugs: No Caffeine use: Yes Review of Systems 10-point ROS is otherwise unremarkable Physical Examination Reviewed General: Alert, In no apparent distress, Oriented x3 HEENT: Atraumatic, PERRLA, Mucous membr. moist/pink, EOMI, Sclerae nonicteric Neck: Supple, 2+ carotid pulse no bruit, No LAD, Without JVD or thyroid abnormality Respiratory: Clear to auscultation bilaterally, Normal air movement Cardiovascular: Regular rate/rhythm, Normal S1 S2 Gastrointestinal: Normal bowel sounds, No tenderness Musculoskeletal: No tenderness Integumentary: No rashes Neurological: Normal speech, Normal strength at 5/5 x4 extr, Normal tone, Sensation intact, Cranial nerves 3-12 intact, Normal reflexes 2+, Normal affect, Abnormal gait (Patient ataxic with drifting towards the right side) Lymphatics: No axilla or inguinal lymphadenopathy Laboratory Data (last 24 hrs) 02/18/23 02/18/23 02/18/23 16:16 16:16 16:16 WBC 7.90 Hgb 14.9 Hct 43.3 Plt Count 226 PT 12.1 INR 1.10 APTT 31.1 Sodium 137 Potassium 3.9 BUN 20 H Creatinine 1.29 Glucose 112 H - Problems (1) Acute CVA (cerebrovascular accident) Current Visit: Yes Status: Acute (2) Presence of stent in coronary artery in patient with coronary artery disease Current Visit: Yes Status: Acute (3) HTN (hypertension) Current Visit: No Status: Acute (4) Obesity Current Visit: No Status: Acute Conclusions/ Impression: 1. MRI of the brain 2. Antiplatelet and statin therapy 3. Lipid profile 4. Physical therapy and speech therapy consultation 5. DVT prophylaxis 6. Neurochecks every 4 hours 7. Reassess stroke scale 8. GI and DVT prophylaxis Spoke to the patient in detail regarding her current hospital situation. Because of the holiday we do not really have MRI available in the morning. Patient requested for transfer to a tertiary care facility. We did call [facility]. I did speak to the stroke team and they have excepted patient in transfer. Awaiting to talk to the hospitalist team. Anticipate transfer to neuro telemetry [place]. Critical Care: No Time Spent Managing Pts care (In Minutes): 45
[2023-02-18 22:58] VITALS: TEMP 98.6
[2023-02-18 23:10] VITALS: BP 164/82; O2SAT 98
== END ==
LOC: ER 15:19
DX: H53.2 Diplopia (principal); R27.0 Ataxia, unspecified; I10 Essential (primary) hypertension; I25.2 Old myocardial infarction; Z88.2 Allergy status to sulfonamides
CPT/HCPCS: 96365; 96361; 93005; 85025; 80048; 36415; 85610; 85730; 84484; 70496; 70498; 70450; 71045; 99285; Q9967; J8597; J7030

== ENCOUNTER 2024-02-13 14:34 | Emergency (ER) | payer BC ==
[2024-02-13] MEDS ORDERED: GLUCAGON 1 MG/VIAL ONE ×2 (14:59→15:20)
[2024-02-13 15:33] LABS: Absolute Basophils 0.1 K/uL (0-0.5); Absolute Eosinophils 0.1 K/uL (0-0.5); Absolute Monocytes 0.5 K/uL (0.1-1.3); Absolute Neutrophil 7.7 K/uL (1.8-8.0); Basophils % 0.6 % (0-1.3); Hemoglobin 13.6 g/dL (13.6-17.9); Lymphocytes % 10.7 % (15.3-44.8); MCH 28.6 pg (27.0-35.0); MCHC 33.2 g/dL (32.0-36.0); MPV 7.2 fL (7.6-11.3); Neutrophils % 82.7 % (41.7-73.7); Platelets 220 thou/uL (152-406); RBC Red Blood Cell Count 4.77 M/uL (4.33-5.43); Red Cell Distribution Width 13.9 % (12.1-15.2)
[2024-02-13 15:45] LABS: Anion Gap 8.6 mEq/L (5.0-15.0); Potassium 3.6 mEq/L (3.5-5.1)
--- NOTE | 2024-02-13 15:47 | EDPHYS ---
Physician Documentation [facility] Name: Anthony Bailey Age: 63 yrs Sex: Male : 1960 Arrival Date: 02/13/2024 Time: 14:34 Bed 7 Private MD: ED Physician Cliff Camejo HPI: 02/12 14:51 This 63 yrs old Male presents to ER via Ambulatory with complaints of Swallowed Foreign ms3 Body. 14:51 Anthony Bailey is a 63-year-old male who presents to the Emergency Department with ms3 difficulty swallowing and a sensation of choking after eating ribs. The patient reports that while attempting to swallow the food, it felt like it got stuck, and subsequent attempts to wash it down with a Coke were unsuccessful. The beverage fizzed back up into his mouth, and he was unable to throw up despite multiple attempts. He describes being unable to swallow even water, as it also comes back up. He mentions a similar previous episode with prime rib. The patient does not report any known medical problems. . Historical: - Allergies: 14:41 Sulfa (Sulfonamide Antibiotics); iw - PMHx: 14:41 Back pain; Hypertension; [place] 2017; Myocardial infarction; iw - PSHx: 14:41 B knees MCL tears; rotator cuff SX; iw - Immunization history:: Adult Immunizations not up to date. - Infectious Disease History:: Denies. - Social history:: Smoking status: Patient denies any tobacco usage or history of. ROS: 14:51 Constitutional: Negative for fever, and chills. Cardiovascular: Negative for chest ms3 pain, and palpitations. Respiratory: Negative for shortness of breath, cough, wheezing, and pleuritic chest pain, 14:51 Abdomen/GI: Positive for FB sensation in esophagus, Exam: 14:51 Constitutional: This is a well developed, well nourished patient who is awake, alert, ms3 and in no acute distress. Chest/axilla: Normal chest wall appearance and motion. Nontender with no deformity. Cardiovascular: Regular rate and rhythm with a normal S1 and S2. No gallops, murmurs, or rubs. Normal PMI, no JVD. No pulse deficits. Respiratory: Lungs have equal breath sounds bilaterally, clear to auscultation and percussion. No rales, rhonchi or wheezes noted. No increased work of breathing, no retractions or nasal flaring. Abdomen/GI: Soft, non-tender, with normal bowel sounds. No distension or tympany. No guarding or rebound. No evidence of tenderness throughout. Skin: Warm, dry with normal turgor. Normal color with no rashes, no lesions, and no evidence of cellulitis. Vital Signs: 14:40 BP 157 / 85; Pulse 81; Resp 16; Temp 98.6; Pulse Ox 99% on R/A; iw 14:42 Weight 96.16 kg; Height 5 ft. 10 in. ; iw 16:12 BP 142 / 78; Pulse 74; Resp 15; Pulse Ox 100% ; ko1 14:42 Body Mass Index 30.42 (96.16 kg, 177.8 cm) iw MDM: 14:51 Differential Diagnosis Food bolus. ms3 14:53 Medical Screening Exam initiated ms3 16:25 Data reviewed: vital signs, nurses notes, lab test result(s), and as a result, I will [facility] transfer patient for GI. Consideration of Admission/Observation Patient will be transferred for GI. I considered the following discharge prescriptions or medication management in the emergency department Medications were administered in the Emergency Department. See MAR. Counseling: I had a detailed discussion with the patient and/or guardian regarding the historical points, exam findings, and any diagnostic results supporting the discharge/admit diagnosis, lab results, the need to transfer to another facility, [facility] does not immediately have the required specialist. 16:29 ED course: Discussed case with Dr Tinoco and she accepts patient to [address] Discussed plan with patient and he understands/ agrees with plan. All questions answered.. 02/12 15:16 Order name: CBC with Diff; Complete Time: 15:46 ms3 02/12 15:16 Order name: BMP; Complete Time: 15:46 ms3 Administered Medications: 15:10 Drug: Glucagon IVP 1 mg IVP once Route: IVP; Site: right antecubital; ko1 15:25 Follow up: Response: No adverse reaction ko1 15:26 Drug: Glucagon IVP 1 mg IVP once Route: IVP; Site: right antecubital; ko1 15:41 Follow up: Response: No adverse reaction ko1 Disposition Summary: 02/13/24 15:47 Transfer Ordered Notes: Transfer Location: [facility] ms3 Reason: Higher level of care ms3 Condition: Stable ms3 Problem: new ms3 Symptoms: are unchanged ms3 Accepting Physician: (02/13/24 17:16) nadja Diagnosis - Food in esophagus ms3 Forms: - Medication Reconciliation Form ms3 - SBAR form ms3 Signatures: Dispatcher [employer] Charo Newsome RN RN iw Cliff Camejo DO DO ms3 Yanely Cuevas RN RN ko1 Corrections: (The following items were deleted from the chart) 17:16 15:47 ms3 iw
--- NOTE | 2024-02-13 15:47 | ER ---
Nurse's Notes [facility] Name: Anthony Bailey Age: 63 yrs Sex: Male : 1960 Arrival Date: 02/13/2024 Time: 14:34 Bed 7 Private MD: Diagnosis: Food in esophagus Presentation: 02/12 14:40 Chief complaint: Patient states: tried to eat BBQ ribs two hours ago , feels like the iw food is stuck in his esophagus. Coronavirus screen: At this time, the client does not indicate any symptoms associated with coronavirus-19. Ebola Screen: No symptoms or risks identified at this time. Initial Sepsis Screen: Does the patient meet any 2 criteria? No. Patient's initial sepsis screen is negative. Does the patient have a suspected source of infection? No. Patient's initial sepsis screen is negative. Risk Assessment: Do you want to hurt yourself or someone else? Patient reports no desire to harm self or others. Onset of symptoms was February 13, 2024. 14:40 Method Of Arrival: Ambulatory iw 14:40 Acuity: DANIEL 3 iw Historical: - Allergies: 14:41 Sulfa (Sulfonamide Antibiotics); iw - PMHx: 14:41 Back pain; Hypertension; [place] 2017; Myocardial infarction; iw - PSHx: 14:41 B knees MCL tears; rotator cuff SX; iw - Immunization history:: Adult Immunizations not up to date. - Infectious Disease History:: Denies. - Social history:: Smoking status: Patient denies any tobacco usage or history of. Screenin:[address] [facility] ED Fall Risk Assessment (Adult) History of falling in the last 3 months, ko1 including since admission No falls in past 3 months (0 pts) Confusion or Disorientation No (0 pts) Intoxicated or Sedated No (0 pts) Impaired Gait No (0 pts) Mobility Assist Device Used No (0 pt) Altered Elimination No (0 pt) Score/Fall Risk Level 0 - 2 = Low Risk Oriented to surroundings, Maintained a safe environment, Educated pt \T\ family on fall prevention, incl call for assistance when getting out of bed, Assessed \T\ reinforced patient's understanding of fall precautions, Hourly rounding (assess needs \T\ fall precautionary measures) done. Abuse screen: Denies threats or abuse. Denies injuries from another. Nutritional screening: No deficits noted. Tuberculosis screening: No symptoms or risk factors identified. Assessment: 15:14 General: Appears in no apparent distress. Behavior is calm, cooperative, appropriate ko1 for age. Pain: Denies pain. Neuro: No deficits noted. Cardiovascular: No deficits noted. Respiratory: No deficits noted. GI: Reports food stuck in esophagus. : No deficits noted. No signs and/or symptoms were reported regarding the genitourinary system. EENT: Reports difficulty swallowing. Derm: No deficits noted. No signs and/or symptoms reported regarding the dermatologic system. Musculoskeletal: No deficits noted. No signs and/or symptoms reported regarding the musculoskeletal system. Vital Signs: 14:40 BP 157 / 85; Pulse 81; Resp 16; Temp 98.6; Pulse Ox 99% on R/A; iw 14:42 Weight 96.16 kg; Height 5 ft. 10 in. ; iw 16:12 BP 142 / 78; Pulse 74; Resp 15; Pulse Ox 100% ; ko1 14:42 Body Mass Index 30.42 (96.16 kg, 177.8 cm) iw ED Course: 14:37 Patient arrived in ED. ra3 14:41 Triage completed. iw 14:41 Arm band placed on. iw 14:42 Cliff Camejo DO is Attending Physician. ms3 14:43 Yanely Cuevas, CAPO is Primary Nurse. ko1 15:14 Patient has correct armband on for positive identification. Allergy band placed. Bed in ko1 low position. Call light in reach. Side rails up X 1. Provided Education on: meds. Pulse ox on. NIBP on. Door closed. Noise minimized. Lights dimmed. 15:14 No provider procedures requiring assistance completed. Inserted saline lock: 22 gauge ko1 in right antecubital area, using aseptic technique. Flushed with 10 mL NS. 15:26 BMP Sent. ko1 15:26 CBC with Diff Sent. ko1 15:49 transfer initiated with TC. ty 16:36 Patient requests rest room assistance. ko1 16:36 Assisted to bathroom. ko1 16:36 Patient transferred, IV remains in place. ko1 16:37 MOT Received for [facility] A4. ty 16:42 N2N handed off for report. ty 16:51 [facility] E[facility] 20 minutes. ty Administered Medications: 15:10 Drug: Glucagon IVP 1 mg IVP once Route: IVP; Site: right antecubital; ko1 15:25 Follow up: Response: No adverse reaction ko1 15:26 Drug: Glucagon IVP 1 mg IVP once Route: IVP; Site: right antecubital; ko1 15:41 Follow up: Response: No adverse reaction ko1 Medication: 15:14 VIS not applicable for this client. ko1 Outcome: 15:47 ER care complete, transfer ordered by ms3 17:16 Patient left the ED. iw Signatures: Charo Dooley, RN RN iw Cliff Camejo DO DO ms3 Yanely Cuevas RN RN ko1 Haley Gonzalez ra3 Alvarez Locke ty Corrections: (The following items were deleted from the chart) 16:38 16:36 transfer approval from receiving facility. ko1 ko1 16:52 16:51 [facility] ty ty
[2024-02-13 17:20] VITALS: TEMP 98.6
[2024-02-13 17:22] VITALS: BP 142/78; O2SAT 100
== END 2024-02-13 17:16 | disposition short-term general hospital (02) ==
LOC: ER 14:34
DX: T18.128A Food in esophagus causing other injury, initial encounter (principal); I10 Essential (primary) hypertension; I25.2 Old myocardial infarction; Z88.2 Allergy status to sulfonamides
CPT/HCPCS: 85025; 80048; 36415; 96374; 99284; J1610 ×2

== ENCOUNTER 2024-04-30 19:47 | Emergency (ER) | payer BC ==
[2024-04-30 21:19] LABS: Absolute Basophils 0.1 K/uL (0-0.5); Absolute Eosinophils 0.2 K/uL (0-0.5); Absolute Lymphocytes (CBC) 1.7 K/uL (0.7-4.9); Absolute Monocytes 0.7 K/uL (0.1-1.3); Absolute Neutrophil 5.9 K/uL (1.8-8.0); Basophils % 0.9 % (0-1.3); Eosinophils % 1.8 % (0-4.4); Hematocrit 40.8 % (39.6-49.0); Hemoglobin 14.4 g/dL (13.6-17.9); Lymphocytes % 19.4 % (15.3-44.8); MCH 29.4 pg (27.0-35.0); MCHC 35.4 g/dL (32.0-36.0); MCV 83.3 fL (80-100); MPV 7.9 fL (7.6-11.3); Monocytes % 8.8 % (3.3-12.3); Neutrophils % 69.1 % (41.7-73.7); Nucleated Red Blood Cells % 0.1 % (0-0); PT Prothrombin Time 11.9 SECONDS (10-13.0); Platelets 250 thou/uL (152-406); Protime INR 1.05; RBC Red Blood Cell Count 4.91 M/uL (4.33-5.43); Red Cell Distribution Width 13.9 % (12.1-15.2)
[2024-04-30 21:30] LABS: ALT/SGPT 24 U/L (16-61); AST/SGOT 18 U/L (15-37); Albumin 3.8 g/dL (3.4-5.0); Albumin/Globulin Ratio 1.1 (1.1-1.8); Alkaline Phosphatase 101 U/L (45-117); Anion Gap 8.8 mEq/L (5.0-15.0); BUN Blood Urea Nitrogen 18 mg/dL (7-18); Bicarbonate 26 mEq/L (21-32); Bilirubin Direct 0.2 mg/dL (0-0.2); Bilirubin Indirect, Calculated 0.4 mg/dL (0.2-0.8); Bilirubin Total 0.6 mg/dL (0.2-1.0); Globulin 3.6 g/dL (2.3-3.5); Glomerular Filtration Rate 92 ml/min (=/>90); Glucose Level 93 mg/dL (74-106); Magnesium 2.1 mg/dL (1.6-2.4); NT PRO-BNP 192 pg/mL (<125); Potassium 3.8 mEq/L (3.5-5.1); Protein, Total 7.4 g/dL (6.4-8.2); Sodium Level 139 mEq/L (136-145)
[2024-04-30 21:36] LABS: Troponin High Sensitivity < 3.0 pg/mL (<58.9)
--- NOTE | 2024-04-30 21:46 | RAD REPORT ---
EXAMINATION: ONE VIEW CHEST XR CLINICAL INDICATION: Male, 63 years old.,CHEST PAIN TECHNIQUE: Frontal chest projection is submitted. Examination is limited by patient positioning and t echnique. COMPARISON: 05/31/2023 FINDINGS: The lungs are well inflated and clear. No pneumothorax or sizable effusion. The heart is normal in s ize. Mediastinal contours are unremarkable. IMPRESSION: No acute intrathoracic abnormalities.
--- NOTE | 2024-05-01 00:59 | EDPHYS ---
Physician Documentation [facility] Name: Anthony Bailey Age: 63 yrs Sex: Male : 1960 Arrival Date: 04/30/2024 Time: 19:47 Bed 13 Private MD: ED Physician Truman Dave HPI: 04/30 20:12 This 63 yrs old Male presents to ER via Ambulatory with complaints of Chest sp4 Pain. 05/01 06:05 63-year-old male presents with acute onset left intermittent sharp stabbing chest pain. 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 Describes sharp left-sided chest pain associated with some dyspnea. No history of prior stents. Patient takes metoprolol, aspirin, and Crestor.. Historical: - Allergies: 04/30 20:01 Sulfa (Sulfonamide Antibiotics); al5 - Home Meds: 20:01 Aspirin Oral [Active]; Metoprolol Tartrate Oral [Active]; al5 - PMHx: 20:01 Back pain; Hypertension; [place] 2017; Myocardial infarction; al5 - PSHx: 20:01 B knees MCL tears; rotator cuff SX; al5 - Immunization history:: Adult Immunizations up to date. - Infectious Disease History:: Denies. - Social history:: Smoking status: Patient denies any tobacco usage or history of. - Family history:: not pertinent. ROS: 05/01 06:05 Constitutional: Negative for fever, chills, and weight loss, positive chest pain sp4 All other systems are negative, Exam: 06:05 Constitutional: This is a well developed, well nourished patient who is awake, alert, sp4 and in no acute distress. Head/Face: Normocephalic, atraumatic. Eyes: Pupils equal round and reactive to light, extra-ocular motions intact. Lids and lashes normal. Conjunctiva and sclera are not injected. Cornea within normal limits. Periorbital areas with no swelling, redness, or edema. ENT: Nares patent. No nasal discharge, no septal abnormalities noted. Tympanic membranes are normal and external auditory canals are clear. Oropharynx with no redness, swelling, or masses, exudates, or evidence of obstruction, uvula midline. Mucous membranes moist. Neck: Trachea midline, no thyromegaly or masses palpated, and no cervical lymphadenopathy. Supple, full range of motion without nuchal rigidity, or vertebral point tenderness. Chest/axilla: Normal chest wall appearance and motion. Nontender with no deformity. No lesions are appreciated. Cardiovascular: Regular rate and rhythm with a normal S1 and S2. No gallops, murmurs, or rubs. Normal PMI, no JVD. No pulse deficits. Respiratory: Lungs have equal breath sounds bilaterally, clear to auscultation and percussion. No rales, rhonchi or wheezes noted. No increased work of breathing, no retractions or nasal flaring. Abdomen/GI: Soft, with normal bowel sounds. No distension or tympany. No guarding or rebound. No evidence of tenderness throughout. Back: No spinal tenderness. No costovertebral tenderness. Skin: Warm, dry with normal turgor. Normal color with no rashes, no lesions, and no evidence of cellulitis. MS/ Extremity: Pulses equal, no cyanosis. Neurovascular intact. Full, normal range of motion. Neuro: Awake and alert, GCS 15, oriented to person, place, time, and situation. Cranial nerves II-XII grossly intact. Motor strength 5/5 in all extremities. Sensory grossly intact. Psych: Awake, alert, with orientation to person, place and time. Behavior, mood, and affect are within normal limits 06:05 ECG was reviewed by the Attending Physician. Normal sinus rhythm, normal EKG at 2000, rate 69 Vital Signs: 04/30 19:59 BP 178 / 100; Pulse 77; Resp 18; Temp 98.5; Pulse Ox 98% on R/A; Weight 97.52 kg; al5 Height 5 ft. 9 in. ; Pain 6/10; 21:23 BP 132 / 77; Pulse 65; Resp 17; Pulse Ox 98% ; Pain 0/10; rg5 22:00 BP 151 / 69; Pulse 62; Resp 17; Pulse Ox 98% on R/A; Pain 0/10; rg5 23:35 BP 129 / 71; Pulse 60; Resp 17; Pulse Ox 99% on R/A; Pain 0/10; rg5 05/01 00:29 BP 147 / 72; Pulse 60; Resp 17; Pulse Ox 99% on R/A; Pain 0/10; rg5 01:15 BP 145 / 73; Pulse 61; Resp 17; Pulse Ox 99% ; Pain 0/10; rg5 04/30 19:59 Body Mass Index 31.75 (97.52 kg, 175.26 cm) al5 04/30 19:59 Pain Scale: Adult al5 21:23 Pain Scale: Adult rg5 22:00 Pain Scale: Adult rg5 23:35 Pain Scale: Adult rg5 05/01 00:29 Pain Scale: Adult rg5 01:15 Pain Scale: Adult rg5 Frederica Coma Score: 06:05 Eye Response: spontaneous(4). Motor Response: obeys commands(6). Verbal Response: sp4 oriented(5). Total: 15. MDM: 04/30 20:16 Medical Screening Exam initiated sp4 05/01 06:13 Differential diagnosis: acute pericarditis, anxiety, coronary artery disease chest wall sp4 pain, congestive heart failure cholecystitis. HEART Score: History: Slightly Suspicious (0), ECG: Normal (0), Age: > 45 and < 65 years (1), Risk Factors: > or = 3 Risk factors for atherosclerotic disease (2), Troponin: < or = 1 x Normal Limit (0), Total Score = 2. The patient was given aspirin in the Emergency Department. Data reviewed: vital signs, nurses notes, old medical records, lab test result(s), EKG, radiologic studies. ED course: Workup today is unremarkable, second troponin and normal, second EKG normal. Patient stable for discharge home. Advised follow-up with cardiology as scheduled.. 06:14 ED course: EXAMINATION: ONE VIEW CHEST XR CLINICAL INDICATION: Male, 63 years sp4 old.,CHEST PAIN TECHNIQUE: Frontal chest projection is submitted. Examination is limited by patient positioning and technique. COMPARISON: 05/31/2023 FINDINGS: The lungs are well inflated and clear. No pneumothorax or sizable effusion. The heart is normal in size. Mediastinal contours are unremarkable. IMPRESSION: No acute intrathoracic abnormalities. . 04/30 20:16 Order name: Basic Metabolic Panel; Complete Time: 21:40 [facility] 04/30 20:16 Order name: CBC with Diff; Complete Time: 21:40 [facility] 04/30 20:16 Order name: LFT's; Complete Time: 21:40 [facility] 04/30 20:16 Order name: Magnesium; Complete Time: 21:40 sp4 04/30 20:16 Order name: NT PRO-BNP; Complete Time: 21:40 sp4 04/30 20:16 Order name: PT-INR; Complete Time: 21:40 sp4 04/30 20:16 Order name: Troponin HS; Complete Time: 21:40 sp4 04/30 23:10 Order name: Troponin High Sensitivity; Complete Time: 00:56 sp4 04/30 20:16 Order name: XRAY Chest (1 view); Complete Time: 00:56 sp4 04/30 20:16 Order name: EKG; Complete Time: 20:16 sp4 04/30 23:10 Order name: EKG; Complete Time: 23:11 sp4 04/30 20:16 Order name: Cardiac monitoring; Complete Time: 20:39 sp4 04/30 20:16 Order name: EKG - Nurse/Tech; Complete Time: 20:39 sp4 04/30 20:16 Order name: IV Saline Lock; Complete Time: 20:39 4 04/30 20:16 Order name: Labs collected and sent; Complete Time: 20:39 sp4 04/30 20:16 Order name: O2 Per Protocol; Complete Time: 20:39 sp4 04/30 20:16 Order name: O2 Sat Monitoring; Complete Time: 20:39 sp4 EC/12 20:01 Rate is 69 beats/min. Rhythm is regular, Normal Sinus Rhythm. QRS [place] is Normal. NC sp4 interval is normal. QRS interval is normal. QT interval is normal. No Q waves. T waves are Normal. No ST changes noted. Clinical impression: Normal ECG. Interpreted by me. Reviewed by me. 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 EDMS EDMS
--- NOTE | 2024-05-01 00:59 | ER ---
Nurse's Notes [facility] Name: Anthony Bailey Age: 63 yrs Sex: Male : 1960 Arrival Date: 04/30/2024 Time: 19:47 Bed 13 Private MD: Diagnosis: Non Cardiac Chest pain Presentation: 04/30 19:59 Chief complaint: Patient states: chest pain intermittent starting last night. pain is al5 intermittent, but has started to become more constant. Coronavirus screen: At this time, the client does not indicate any symptoms associated with coronavirus-19. Ebola Screen: No symptoms or risks identified at this time. Initial Sepsis Screen: Does the patient meet any 2 criteria? No. Patient's initial sepsis screen is negative. Does the patient have a suspected source of infection? No. Patient's initial sepsis screen is negative. Risk Assessment: Do you want to hurt yourself or someone else? Patient reports no desire to harm self or others. Onset of symptoms was April 29, 2024. 19:59 Method Of Arrival: Ambulatory al5 19:59 Acuity: DANIEL 2 al5 Triage Assessment: 20:02 General: Appears in no apparent distress. comfortable, Behavior is calm, cooperative. al5 Pain: Complains of pain in mid-sternal area Pain currently is 6 out of 10 on a pain scale. EENT: No signs and/or symptoms were reported regarding the EENT system. Neuro: Level of Consciousness is awake, alert, obeys commands, Oriented to person, place, time, situation. Cardiovascular: Reports chest pain, Capillary refill < 3 seconds Patient's skin is warm and dry. Rhythm is sinus rhythm. Respiratory: Airway is patent Respiratory effort is even, unlabored, Respiratory pattern is regular, symmetrical. GI: No signs and/or symptoms were reported involving the gastrointestinal system. : No signs and/or symptoms were reported regarding the genitourinary system. Derm: Skin is intact, is healthy with good turgor, Skin is pink, warm \T\ dry. normal. Musculoskeletal: No signs and/or symptoms reported regarding the musculoskeletal system. Historical: - Allergies: 20:01 Sulfa (Sulfonamide Antibiotics); al5 - Home Meds: 20:01 Aspirin Oral [Active]; Metoprolol Tartrate Oral [Active]; al5 - PMHx: 20:01 Back pain; Hypertension; TN 2017; Myocardial infarction; al5 - PSHx: 20:01 B knees MCL tears; rotator cuff SX; al5 - Immunization history:: Adult Immunizations up to date. - Infectious Disease History:: Denies. - Social history:: Smoking status: Patient denies any tobacco usage or history of. - Family history:: not pertinent. Screenin:35 [facility] ED Fall Risk Assessment (Adult) History of falling in the last 3 months, rg5 including since admission No falls in past 3 months (0 pts) Confusion or Disorientation No (0 pts) Intoxicated or Sedated No (0 pts) Impaired Gait No (0 pts) Mobility Assist Device Used No (0 pt) Altered Elimination No (0 pt) Score/Fall Risk Level 0 - 2 = Low Risk Oriented to surroundings, Maintained a safe environment, Hourly rounding (assess needs \T\ fall precautionary measures) done. Abuse screen: Denies threats or abuse. Nutritional screening: No deficits noted. Tuberculosis screening: No symptoms or risk factors identified. Assessment: 20:35 General: Appears in no apparent distress. comfortable, Behavior is calm, cooperative, rg5 appropriate for age. 20:35 Neuro: Level of Consciousness is awake, alert, obeys commands, Oriented to person, rg5 place, time. Cardiovascular: Reports chest pain. Respiratory: Airway is patent Trachea midline Respiratory effort is even, unlabored. GI: Abdomen is round non-distended, Abd is soft and non tender. : No signs and/or symptoms were reported regarding the genitourinary system. EENT: No deficits noted. 21:24 Pain: Complains of pain in chest Pain does not radiate. Quality of pain is described as rg5 shooting, Pain began 1 day ago. Is intermittent, episodic, lasting a few minutes. 22:00 Reassessment: No changes from previously documented assessment. Patient and/or family rg5 updated on plan of care and expected duration. Pain level reassessed. Patient is alert, oriented x 3, equal unlabored respirations, skin warm/dry/pink. 23:35 Reassessment: No changes from previously documented assessment. Patient and/or family rg5 updated on plan of care and expected duration. Pain level reassessed. Patient is alert, oriented x 3, equal unlabored respirations, skin warm/dry/pink. 05/01 00:30 Reassessment: No changes from previously documented assessment. Patient and/or family rg5 updated on plan of care and expected duration. Pain level reassessed. Patient is alert, oriented x 3, equal unlabored respirations, skin warm/dry/pink. 01:00 Reassessment: Patient and/or family updated on plan of care and expected duration. Pain rg5 level reassessed. Patient is alert, oriented x 3, equal unlabored respirations, skin warm/dry/pink. Patient denies pain at this time. Vital Signs: 04/30 19:59 BP 178 / 100; Pulse 77; Resp 18; Temp 98.5; Pulse Ox 98% on R/A; Weight 97.52 kg; al5 Height 5 ft. 9 in. ; Pain 6/10; 21:23 BP 132 / 77; Pulse 65; Resp 17; Pulse Ox 98% ; Pain 0/10; rg5 22:00 BP 151 / 69; Pulse 62; Resp 17; Pulse Ox 98% on R/A; Pain 0/10; rg5 23:35 BP 129 / 71; Pulse 60; Resp 17; Pulse Ox 99% on R/A; Pain 0/10; rg5 05/01 00:29 BP 147 / 72; Pulse 60; Resp 17; Pulse Ox 99% on R/A; Pain 0/10; rg5 01:15 BP 145 / 73; Pulse 61; Resp 17; Pulse Ox 99% ; Pain 0/10; rg5 04/30 19:59 Body Mass Index 31.75 (97.52 kg, 175.26 cm) al5 04/30 19:59 Pain Scale: Adult al5 21:23 Pain Scale: Adult rg5 22:00 Pain Scale: Adult rg5 23:35 Pain Scale: Adult rg5 05/01 00:29 Pain Scale: Adult rg5 01:15 Pain Scale: Adult rg5 Curtis Coma Score: 06:05 Eye Response: spontaneous(4). Motor Response: obeys commands(6). Verbal Response: sp4 oriented(5). Total: 15. ED Course: 04/30 19:51 Patient arrived in ED. im 20:01 Triage completed. al5 20:03 Arm band placed on right wrist. Patient placed in waiting room, in view of staff al5 members, on awake overnight monitor, on pulse oximetry. EKG completed in triage. Results shown to MD. 20:05 Truman Dave MD is Attending Physician. sp4 20:18 Vinnie Vizcaino, RN is Primary Nurse. rg5 20:33 XRAY Chest (1 view) In Process Unspecified. EDMS 20:35 Patient maintains SpO2 saturation greater than 95% on room air. rg5 21:24 Patient has correct armband on for positive identification. Bed in low position. Call rg5 light in reach. Side rails up X 1. Client placed on continuous cardiac and pulse oximetry monitoring. NIBP monitoring applied. pvc monitor on. Pulse ox on. NIBP on. Door closed. Noise minimized. Warm blanket given. 21:24 No provider procedures requiring assistance completed. Inserted saline lock: 20 gauge rg5 in right forearm, using aseptic technique. Blood collected. Flushed with 10 mL NS. 05/01 01:30 Patient transferred, IV remains in place. bleeding controlled, No redness/swelling at rg5 site. Pressure dressing applied. 01:31 Provided Education on: post er care. rg5 Administered Medications: No medications were administered Medication: 04/30 21:24 VIS not applicable for this client. rg5 Outcome: 05/01 00:58 Discharge ordered by . sp4 01:31 Discharged to home ambulatory, rg5 01:31 Condition: stable 01:31 Discharge instructions given to patient, Instructed on discharge instructions, follow up and referral plans. 01:33 Patient left the ED. rg5 Signatures: Dispatcher [employer] EDKS Truman Dave MD MD sp4 Leah Sousa Vinnie Vizcaino, RN RN rg5 Felicia Martinez RN RN al5
[2024-05-01 01:37] VITALS: TEMP 98.5
[2024-05-01 01:41] VITALS: O2SAT 99
[2024-05-01 01:44] VITALS: BP 145/73
--- NOTE | 2024-05-02 14:43 | EKG ---
Test Date: 2024-05-01 Test Time: 00:14:47 Regulatory Administrator: DALTON MEASUREMENT RESULTS: Intervals: Rate: 58 TN: 140 QRSD: 86 QT: 404 QTc: 396 [place]: P: 43 TN: 140 QRS: 72 T: 13 INTERPRETIVE STATEMENTS: Sinus bradycardia Cannot rule out Anterior infarct, age undetermined Abnormal ECG Compared to ECG 02/18/2023 16:11:23 Myocardial infarct finding now present Sinus rhythm no longer present Electronically Signed On 05-02-24 14:40:23 CDT by Marquez Ortiz
--- NOTE | 2024-05-02 14:44 | EKG ---
Test Date: 2024-04-30 Test Time: 20:01:09 [employer] Architect: SANTANA MEASUREMENT RESULTS: Intervals: Rate: 69 AR: 140 QRSD: 80 QT: 388 QTc: 415 [place]: P: 49 AR: 140 QRS: 72 T: 29 INTERPRETIVE STATEMENTS: Normal sinus rhythm Normal ECG Compared to ECG 02/18/2023 16:11:23 No significant changes Electronically Signed On 05-02-24 14:41:16 CDT by Marquez Ortiz
== END 2024-05-01 01:33 | disposition home or self-care (01) ==
LOC: ER 19:47
DX: R07.89 Other chest pain (principal); I10 Essential (primary) hypertension; I25.2 Old myocardial infarction; Z79.82 Long term (current) use of aspirin
CPT/HCPCS: 36415; 71045; 80048; 80076; 83735; 83880; 84484; 85025; 85610; 93005; 99284